=== PATIENT | male | born 1970 | race Caucasian/White ===

== ENCOUNTER 2017-03-03 21:47 | Inpatient (IN) | payer OTHER ==
[~2017-03-03] VITALS: Ht 172.7 cm; Wt 93.1 kg
[~2017-03-03 21:47] MED LIST: ACET-168 PO; CLAR500T2 PO; DIPH25CA79 PO; HYDR1TAB PO; MULT-851 PO; MULTIVITAMIN; NAPR220T76; OMEP20TA7 PO; PRM25T PO; RT-ALBUINH IH; VITAMIN C; [UNRECOGNIZED DRUG - CODE] PO
--- OUTSIDE RECORDS SUMMARY | 2017-03-03 21:53 | XMS REPORT | Continuity of Care Document ---
Demographics Preferred Language Unknown Marital Status Unknown Catholic Affiliation Unknown Race Unknown Ethnic Group Unknown Author Author [facility] Address Unknown Phone Unavailable Allergies Active Description Code Type Severity Reaction Onset Reported/Identified Relationship to Patient Clinical Status Yes No Known Drug Allergies [id number] Drug Allergy Mild N/A 07/27/2008 Yes ciprofloxacin [id number] Drug Allergy Mild N/A 08/05/2008 Yes levofloxacin [id number] Drug Allergy Mild N/A 08/05/2008 Medications There is no data. Problems Date Dx Coded Attending Type Code Diagnosis Diagnosed By 05/18/2010 724.2 BACK PAIN, LOWER 01/26/2015 RAISA BRAVO MD Ot F17.210 01/26/2015 RAISA BRAVO MD, Ot J18.9 01/26/2015 RAISA BRAVO MD Ot R09.02 01/26/2015 RAISA BRAVO MD Ot F17.210 01/26/2015 RAISA BRAVO MD Ot J18.9 01/26/2015 RAISA BRAVO MD Ot R09.02 01/26/2015 RAISA BRAVO MD Ot Z23 Procedures There is no data. Results There is no data. Encounters ACCT No. Visit Date/Time Discharge Status Pt. Type Provider Facility Loc./Unit Complaint [id number] 08/14/2011 13:25:00 Document Registration [id number] 01/25/2015 08:30:00 01/26/2015 15:51:00 DIS Inpatient RAISA BRAVO MD Via [facility] 4TH [id number] 03/03/2017 21:48:00 ACT Emergency TERRA TREVINO, TRAM Mcfarland Via [facility] ER SOJessi
--- NOTE | 2017-03-03 22:07 | ED EENT ---
History of Present Illness General Stated Complaint: SOA Source: patient Exam Limitations: no limitations History of Present Illness Time seen by provider: 22:05 Initial Comments To ER per EMS from home with reports of shortness of breath. Patient has been ill with upper or symptoms for the past several days including fever and productive cough. Over the past 2 days the cough has gotten worse and he's become short of breath. This evening he summoned 911 was found to be a 4% on room air but told the paramedics he believes he was going to quit breathing for the Hospital and was very anxious. Paramedics gave DuoNeb which patient tolerated poorly and then they placed him on Cipro which patient states improved his symptoms significantly. He is noted to be febrile at 101.5 and states that he gets pneumonia about once a year most recently 1 year ago. He does smoke. Has no other medical conditions that he is aware of though he does not have a physician who he visits on a regular basis. Timing/Duration: other Severity: moderate Associated Symptoms: cough Allergies and Home Medications Allergies Coded Allergies: ciprofloxacin (Unverified Allergy, Mild, 08/05/08) levofloxacin (Unverified Allergy, Mild, 08/05/08) Home Medications Acetaminophen 500 Mg Tablet, 1,000 MG PO DAILY, (Reported) Albuterol Sulfate 8.5 Gm Hfa.aer.ad, 1-2 PUFF IH Q4H PRN for SHORTNESS OF BREATH , (Reported) Brompheniram/Phenylephrine/Dm 118 Ml Solution, 45 ML PO HS PRN for COUGH OR CONGESTION, (Reported) Clarithromycin 500 Mg Tablet, 500 MG PO BID, (Reported) FILLED 01/22/15 #28 FOR 14 DAY THERAPY Diphenhydramine HCl 25 Mg Capsule, 50 MG PO HS PRN for ALLERGIES, (Reported) TAKES 2 (25 MG) CAPS Multivits-Minerals/FA/Lycopene 1 Each Tablet, 1 TAB PO DAILY, (Reported) Omeprazole 20 Mg Tablet.dr, 20 MG PO DAILY, (Reported) Review of Systems Constitutional: see HPI Eyes: No Symptoms Reported Ears: No Symptoms Reported Nose: no symptoms reported Mouth: no symptoms reported Throat: see HPI Respiratory: no symptoms reported Cardiovascular: no symptoms reported Musculoskeletal: no symptoms reported Past Uybvizd-Djwazv-Hdspqq Hx Seasonal Allergies Seasonal Allergies: Yes Surgeries Surgeries: Appendectomy Reproductive System Hx Reproductive Disorders: No Genitourinary Genitourinary Disorders: Kidney Stones Musculoskeletal Musculoskeletal Disorders: Chronic Back Pain Family Medical History Significant Family History: No Pertinent Family Hx Family Medial History: Thyroid disease 19 MOTHER (HYPOTHYROID) Physical Exam Vital Signs Vital Sign - Last 12Hours 03/03/17 21:47 Temp 101.5 Pulse 109 Resp 20 B/P (MAP) 98/45 (62) Pulse Ox 96 O2 Delivery Nasal Cannula O2 Flow Rate 4.00 General Appearance: WD/WN, no apparent distress Eyes: bilateral eye normal inspection, bilateral eye PERRL, bilateral eye EOMI Ears: bilateral ear auricle normal, bilateral ear canal normal, bilateral ear TM normal Mouth/Throat: normal mouth inspection, pharynx normal, other (the soft palate and tonsillar pillars are erythematous with whitish exudate on them.) Neck: non-tender, full range of motion Cardiovascular: no murmur, tachycardia Respiratory: no respiratory distress, no accessory muscle use Gastrointestinal: normal bowel sounds, non tender, soft Neurologic/Psychiatric: alert, normal mood/affect, oriented x 3 Skin: normal color, warm/dry Progress/Results/Core Measures Results/Orders Lab Results Laboratory Tests Test 03/03/17 22:00 03/03/17 22:25 Range/Units White Blood Count 11.7 H 4.3-11.0 10^3/uL Red Blood Count 4.21 L 4.35-5.85 10^6/uL Hemoglobin 14.0 13.3-17.7 G/DL Hematocrit 40 40-54 % Mean Corpuscular Volume 94 80-99 FL Mean Corpuscular Hemoglobin 33 25-34 PG Mean Corpuscular Hemoglobin Concent 35 32-36 G/DL Red Cell Distribution Width 13.1 10.0-14.5 % Platelet Count 270 130-400 10^3/uL Mean Platelet Volume 9.7 7.4-10.4 FL Neutrophils (%) (Auto) 90 H 42-75 % Lymphocytes (%) (Auto) 4 L 12-44 % Monocytes (%) (Auto) 5 0-12 % Eosinophils (%) (Auto) 0 0-10 % Basophils (%) (Auto) 0 0-10 % Neutrophils # (Auto) 10.5 H 1.8-7.8 X 10^3 Lymphocytes # (Auto) 0.5 L 1.0-4.0 X 10^3 Monocytes # (Auto) 0.6 0.0-1.0 X 10^3 Eosinophils # (Auto) 0.0 0.0-0.3 10^3/uL Basophils # (Auto) 0.0 0.0-0.1 10^3/uL Neutrophils % (Manual) 81 % Lymphocytes % (Manual) 8 % Monocytes % (Manual) 5 % Eosinophils % (Manual) 0 % Basophils % (Manual) 0 % Band Neutrophils 6 % Blood Morphology Comment NORMAL Sodium Level 133 L 135-145 MMOL/L Potassium Level 3.7 3.6-5.0 MMOL/L Chloride Level 98 98-107 MMOL/L Carbon Dioxide Level 21 21-32 MMOL/L Anion Gap 14 5-14 MMOL/L Blood Urea Nitrogen 18 7-18 MG/DL Creatinine 1.37 H 0.60-1.30 MG/DL Estimat Glomerular Filtration Rate 56 BUN/Creatinine Ratio 13 Glucose Level 115 H 70-105 MG/DL Lactic Acid Level 3.77 *H 0.50-2.00 MMOL/L Calcium Level 9.2 8.5-10.1 MG/DL Total Bilirubin 0.3 0.1-1.0 MG/DL Aspartate Amino Transf (AST/SGOT) 22 5-34 U/L Alanine Aminotransferase (ALT/SGPT) 24 0-55 U/L Alkaline Phosphatase 91 40-136 U/L B-Type Natriuretic Peptide 60.9 <100.0 PG/ML Total Protein 7.3 6.4-8.2 GM/DL Albumin 4.0 3.2-4.5 GM/DL Blood Gas Puncture Site LEFT RADIAL Blood Gas Patient Temperature 99.6 Arterial Blood pH 7.39 7.37-7.43 Arterial Blood Partial Pressure CO2 38 35-45 MMHG Arterial Blood Partial Pressure O2 84 79-93 MMHG Arterial Blood HCO3 22 L 23-27 MMOL/L Arterial Blood Total CO2 23.5 21.0-31.0 MMOL/L Arterial Blood Oxygen Saturation 97 94-100 % Arterial Blood Base Excess -1.7 -2.5-2.5 MMOL/L Goldy Test YES-POS Blood Gas Ventilator Setting NO Blood Gas Inspired Oxygen 4L Micro Results Microbiology 03/03/17 Influenza Types A,B Antigen (SOOL) - Final, Complete My Orders Orders - WILLIAM LAU COW BUYER Cbc With Automated Diff (03/03/17 21:59) Comprehensive Metabolic Panel (03/03/17 21:59) Ua Culture If Indicated (03/03/17 21:59) Saline Lock/Iv-Start (03/03/17 21:59) BNP (03/03/17 21:59) Chest 1 View, Ap/Pa Only (03/03/17 21:59) Blood Culture (03/03/17 21:59) Lactic Acid Analyzer (03/03/17 21:59) Throat Culture (03/03/17 21:59) Influenza A And B Antigens (03/03/17 21:59) Sputum Culture (03/03/17 21:59) Ns Iv 1000 Ml (Sodium Chloride 0.9%) (03/03/17 22:15) Ibuprofen Tablet (Motrin Tablet) (03/03/17 22:15) Manual Differential (03/03/17 22:00) Arterial Blood Gas (03/03/17 22:26) Rapid Strep A Screen (03/03/17 22:38) Ns Iv 1000 Ml (Sodium Chloride 0.9%) (03/03/17 22:45) Remove Rings In Anticipation O (03/03/17 22:40) Protime With Inr (03/03/17 22:45) Medications Given in ED Current Medications Medications Dose Ordered Sig/Myke Route Start Time Stop Time Status Last Admin Dose Admin Ibuprofen 800 mg ONCE ONCE PO 03/03/17 22:15 03/03/17 22:16 DC 03/03/17 22:21 800 MG Vital Signs/I&O Vital Sign - Last 12Hours 03/03/17 03/03/17 21:47 22:28 Temp 101.5 Pulse 109 96 Resp 20 20 B/P (MAP) 98/45 (62) Pulse Ox 96 96 O2 Delivery Nasal Cannula O2 Flow Rate 4.00 Departure Communication (Admissions) Progress Notes 2246-patient has not been on any antibiotics within the last 3 months. His blood pressure at one point in the emergency room was as low as 72 systolic so he is receiving the 3 L fluid bolus. Currently blood pressure is 97/59, heart rate 104, temperature down to 99.7. Because he is a 1-1.5 pack per day smoker of cigarettes we will cover for pseudomonas using the sepsis protocol Zosyn and vancomycin Impression Impression: Primary Impression: Right lower lobe pneumonia Additional Impression: Sepsis Disposition: ADMITTED INPATIENT Condition: Stable Admissions Decision to Admit Reason: Admit from ER (General) Departure-Patient Inst. Referrals: NO,LOCAL PHYSICIAN (PCP/Family) Primary Care Physician WILLIAM LAU APRN Mar 03, 2017 22:07
[2017-03-03 22:10] LABS: BASOPHILS % (AUTO) 0 % (0-10); EOSINOPHILS % (AUTO) 0 % (0-10); HEMATOCRIT 40 % (40-54); LYMPHOCYTES # (AUTO) 0.5 X 10^3 (1.0-4.0); LYMPHOCYTES % (AUTO) 4 % (12-44); MEAN CORPUSCULAR HEMOGLOBIN 33 PG (25-34); MEAN CORPUSCULAR HGB CONC 35 G/DL (32-36); MEAN CORPUSCULAR VOLUME 94 FL (80-99); MEAN PLATELET VOLUME 9.7 FL (7.4-10.4); MONOCYTES # (AUTO) 0.6 X 10^3 (0.0-1.0); MONOCYTES % (AUTO) 5 % (0-12); NEUTROPHILS # (AUTO) 10.5 X 10^3 (1.8-7.8); NEUTROPHILS % (AUTO) 90 % (42-75); PLATELET COUNT 270 10^3/uL (130-400); RED BLOOD COUNT 4.21 10^6/uL (4.35-5.85); RED CELL DISTRIBUTION WIDTH 13.1 % (10.0-14.5); WHITE BLOOD COUNT 11.7 10^3/uL (4.3-11.0)
[2017-03-03] MEDS ORDERED: IBUPROFEN 800 MG (MOTRIN) TAB PO ONE (22:15)
[2017-03-03] MEDS: NS IV 1000 ML 1,000 ML IV SCH ×2 (22:21→23:21)
[2017-03-03 22:28] VITALS: BP 94/49
[2017-03-03 22:28] LABS: BAND NEUTROPHILS 6 %; BASOPHILS % (MANUAL) 0 %; EOSINOPHILS % (MANUAL) 0 %; LYMPHOCYTES % (MANUAL) 8 %; MONOCYTES % (MANUAL) 5 %; NEUTROPHILS % (MANUAL) 81 %; RBC MORPH NORMAL
[2017-03-03 22:33] LABS: ABG BASE EXCESS -1.7 MMOL/L (-2.5-2.5); ABG OXYGEN SATURATION 97 % (94-100); ABG PCO2 38 MMHG (35-45); ABG PH 7.39 (7.37-7.43); ABG PO2 84 MMHG (79-93); ABG TCO2 23.5 MMOL/L (21.0-31.0)
[2017-03-03 22:35] LABS: BILIRUBIN,TOTAL 0.3 MG/DL (0.1-1.0); CALCIUM 9.2 MG/DL (8.5-10.1); CREATININE SERUM 1.37 MG/DL (0.60-1.30); POTASSIUM 3.7 MMOL/L (3.6-5.0); TOTAL PROTEIN 7.3 GM/DL (6.4-8.2)
[2017-03-03 22:37] LABS: ALLENS TEST YES-POS; INSPIRED O2 4L; PATIENT TEMP 99.6; VENTILATOR NO
[2017-03-03] MEDS ORDERED: NS IV PRN (22:45)
[2017-03-03 23:00] LABS: INR 1.1 (0.8-1.4); PROTHROMBIN TIME PATIENT 14.3 SEC (12.2-14.7)
--- OUTSIDE RECORDS SUMMARY | 2017-03-03 23:02 | XMS REPORT | Continuity of Care Document ---
Demographics Preferred Language Unknown Marital Status Unknown Nondenominational Affiliation Unknown Race Unknown Ethnic Group Unknown Author Author [facility] Address Unknown Phone Unavailable Allergies Active Description Code Type Severity Reaction Onset Reported/Identified Relationship to Patient Clinical Status Yes No Known Drug Allergies [id number] Drug Allergy Mild N/A 07/27/2008 Yes ciprofloxacin [id number] Drug Allergy Mild N/A 08/05/2008 Yes levofloxacin [id number] Drug Allergy Mild N/A 08/05/2008 Medications There is no data. Problems Date Dx Coded Attending Type Code Diagnosis Diagnosed By 05/18/2010 724.2 BACK PAIN, LOWER 01/26/2015 RAISA BRAVO MD, Ot F17.210 01/26/2015 RAISA BRAVO MD, Ot J18.9 01/26/2015 RAISA BRAVO MD, Ot R09.02 01/26/2015 RAISA BRAVO MD, Ot F17.210 NICOTINE DEPENDENCE, CIGARETTES, UNCOMPL 01/26/2015 RAISA BRAVO MD, Ot J18.9 PNEUMONIA, UNSPECIFIED ORGANISM 01/26/2015 RAISA BRAVO MD, Ot R09.02 HYPOXEMIA 01/26/2015 RAISA BRAVO MD, Ot Z23 ENCOUNTER FOR IMMUNIZATION Procedures There is no data. Results Test Result Range Complete blood count (CBC) with automated white blood cell (WBC) differential - 03/03/17 22:00 Blood leukocytes automated count (number/volume) 11.7 10*3/uL 4.3-11.0 Blood erythrocytes automated count (number/volume) 4.21 10*6/uL 4.35-5.85 Venous blood hemoglobin measurement (mass/volume) 14.0 g/dL 13.3-17.7 Blood hematocrit (volume fraction) 40 % 40-54 Automated erythrocyte mean corpuscular volume 94 [foz_us] 80-99 Automated erythrocyte mean corpuscular hemoglobin (mass per erythrocyte) 33 pg 25-34 Automated erythrocyte mean corpuscular hemoglobin concentration measurement ( mass/volume) 35 g/dL 32-36 Automated erythrocyte distribution width ratio 13.1 % 10.0-14.5 Automated blood platelet count (count/volume) 270 10*3/uL 130-400 Automated blood platelet mean volume measurement 9.7 [foz_us] 7.4-10.4 Automated blood neutrophils/100 leukocytes 90 % 42-75 Automated blood lymphocytes/100 leukocytes 4 % 12-44 Blood monocytes/100 leukocytes 5 % 0-12 Automated blood eosinophils/100 leukocytes 0 % 0-10 Automated blood basophils/100 leukocytes 0 % 0-10 Blood neutrophils automated count (number/volume) 10.5 10*3 1.8-7.8 Blood lymphocytes automated count (number/volume) 0.5 10*3 1.0-4.0 Blood monocytes automated count (number/volume) 0.6 10*3 0.0-1.0 Automated eosinophil count 0.0 10*3/uL 0.0-0.3 Automated blood basophil count (count/volume) 0.0 10*3/uL 0.0-0.1 Blood manual differential performed detection - 03/03/17 22:00 Blood monocytes/100 leukocytes 5 % NRG Manual blood segmented neutrophils/100 leukocytes 81 % NRG Blood band neutrophils/100 leukocytes 6 % NRG Manual blood lymphocytes/100 leukocytes 8 % NRG Manual eosinophils/100 leukocytes in nose 0 % NRG Manual blood basophils/100 leukocytes 0 % NRG Blood erythrocyte morphology finding identification NORMAL NRG Influenza virus A and B antigen detection - 03/03/17 22:00 FLU RESULT NEGATIVE FOR INFLUENZA A AND B ANTIGENS BY [facility] Blood lactic acid measurement (moles/volume) - 03/03/17 22:00 Blood lactic acid measurement (moles/volume) 3.77 mmol/L 0.50-2.00 Comprehensive metabolic panel - 03/03/17 22:00 Serum or plasma sodium measurement (moles/volume) 133 mmol/L 135-145 Serum or plasma potassium measurement (moles/volume) 3.7 mmol/L 3.6-5.0 Serum or plasma chloride measurement (moles/volume) 98 mmol/L 98-107 Carbon dioxide 21 mmol/L 21-32 Serum or plasma anion gap determination (moles/volume) 14 mmol/L 5-14 Serum or plasma urea nitrogen measurement (mass/volume) 18 mg/dL 7-18 Serum or plasma creatinine measurement (mass/volume) 1.37 mg/dL 0.60-1.30 Serum or plasma urea nitrogen/creatinine mass ratio 13 NRG Serum or plasma creatinine measurement with calculation of estimated glomerular filtration rate 56 NRG Serum or plasma glucose measurement (mass/volume) 115 mg/dL 70-105 Serum or plasma calcium measurement (mass/volume) 9.2 mg/dL 8.5-10.1 Serum or plasma total bilirubin measurement (mass/volume) 0.3 mg/dL 0.1-1.0 Serum or plasma alkaline phosphatase measurement (enzymatic activity/volume) 91 U/L 40-136 Serum or plasma aspartate aminotransferase measurement (enzymatic activity/ volume) 22 U/L 5-34 Serum or plasma alanine aminotransferase measurement (enzymatic activity/volume ) 24 U/L 0-55 Serum or plasma protein measurement (mass/volume) 7.3 g/dL 6.4-8.2 Serum or plasma albumin measurement (mass/volume) 4.0 g/dL 3.2-4.5 Serum or plasma lithium measurement (moles/volume) - 03/03/17 22:00 BNP level 60.9 pg/mL <100.0 Arterial blood gas measurement - 03/03/17 22:25 Blood pCO2 38 mm[Hg] 35-45 Blood pO2 84 mm[Hg] 79-93 Arterial blood bicarbonate measurement (moles/volume) 22 mmol/L 23-27 Arterial blood base excess by calculation -1.7 mmol/L - 2.5-2.5 Arterial blood oxygen saturation measurement 97 % 94-100 * Inhaled oxygen flow rate 4L NRG Arterial blood pH measurement with patient temperature correction 7.39 7.37-7.43 Arterial blood carbon dioxide, total measurement (moles/volume) 23.5 mmol/L 21.0-31.0 Body site LEFT RADIAL NRG Assessment of wrist artery patency prior to arterial puncture YES- POS NRG Setting of ventilation mode NO NRG Measurement of body temperature 99.6 NRG Encounters ACCT No. Visit Date/Time Discharge Status Pt. Type Provider Facility Loc./Unit Complaint [id number] 08/14/2011 13:25:00 Document Registration [id number] 01/25/2015 08:30:00 01/26/2015 15:51:00 DIS Inpatient SHELLY TREVINO, RAISA Raines Via [facility] 4TH PNEUMONIA,BRONCHOSPASM, HIVES [id number] 03/03/2017 22:40:00 ACT Inpatient PJ TREVINO, LUDY Poe Via [facility] ICU RLL PNEUMONIA, SEPSIS
[2017-03-03] MEDS ORDERED: PIPERACILLIN SODIUM/TAZOBACTAM 4.5 GM in NS (IVPB) 100 ML IV ONE (23:45)
[2017-03-03 23:49] VITALS: BP 124/67
[2017-03-04] VITALS (42 sets, daily range): BP systolic 82–137; BP diastolic 50–77
[2017-03-04] MEDS ORDERED: NS IV PRN (00:30)
[2017-03-04] MEDS ORDERED: VANCOMYCIN INJECTION 1,000 MG in NS (IVPB) 250 ML IV SCH (00:30)
[2017-03-04] MEDS: NS IV 1000 ML 1,000 ML IV SCH ×8 (00:39→21:17)
[2017-03-04] MEDS ORDERED: LORazepam INJ 2 MG/ML (ATIVAN) VIAL ONE (00:45)
[2017-03-04] MEDS: LORazepam INJ 2 MG/ML (ATIVAN) VIAL IV PRN ×2 (02:39→03:29)
[2017-03-04 03:39] LABS: ABG BASE EXCESS -4.4 MMOL/L (-2.5-2.5); ABG OXYGEN SATURATION 98 % (94-100); ABG PCO2 59 MMHG (35-45); ABG PO2 118 MMHG (79-93); ABG TCO2 24.3 MMOL/L (21.0-31.0)
[2017-03-04 03:41] LABS: ABG PH 7.21 (7.37-7.43); ALLENS TEST YES-POS; INSPIRED O2 60%; PATIENT TEMP 98.1; VENTILATOR NO
[2017-03-04] MEDS ORDERED: NS (IVPB) 50 ML ONE (04:12)
[2017-03-04] MEDS: DEXMEDETOMIDINE INJECTION 400 MCG in NS (IVPB) 100 ML IV SCH ×4 (04:20→20:51)
[2017-03-04] MEDS ORDERED: methylPREDNISolone 125 MG (Solu-MEDROL) VIAL IVP ONE (04:45)
[2017-03-04] MEDS: FAMOTIDINE 20MG/2ML IV (PEPCID) IVP SCH ×3 (05:00→20:55)
[2017-03-04 05:02] LABS: BASOPHILS % (AUTO) 0 % (0-10); EOSINOPHILS % (AUTO) 0 % (0-10); HEMATOCRIT 38 % (40-54); LYMPHOCYTES # (AUTO) 0.4 X 10^3 (1.0-4.0); LYMPHOCYTES % (AUTO) 5 % (12-44); MEAN CORPUSCULAR HEMOGLOBIN 33 PG (25-34); MEAN CORPUSCULAR HGB CONC 35 G/DL (32-36); MEAN CORPUSCULAR VOLUME 96 FL (80-99); MEAN PLATELET VOLUME 9.5 FL (7.4-10.4); MONOCYTES # (AUTO) 0.5 X 10^3 (0.0-1.0); MONOCYTES % (AUTO) 6 % (0-12); NEUTROPHILS # (AUTO) 7.5 X 10^3 (1.8-7.8); NEUTROPHILS % (AUTO) 90 % (42-75); PLATELET COUNT 227 10^3/uL (130-400); RED BLOOD COUNT 3.91 10^6/uL (4.35-5.85); RED CELL DISTRIBUTION WIDTH 13.2 % (10.0-14.5); WHITE BLOOD COUNT 8.4 10^3/uL (4.3-11.0)
[2017-03-04 05:22] LABS: ABG BASE EXCESS -2.2 MMOL/L (-2.5-2.5); ABG OXYGEN SATURATION 64 % (94-100); ABG PCO2 60 MMHG (35-45); ABG TCO2 26.4 MMOL/L (21.0-31.0)
[2017-03-04 05:25] LABS: ABG PH 7.23 (7.37-7.43); ABG PO2 39 MMHG (79-93); ALLENS TEST YES-POS; INSPIRED O2 45%; PATIENT TEMP 97.8; VENTILATOR NO
[2017-03-04 05:26] LABS: ALANINE AMINOTRANSFERASE 27 U/L (0-55); ALBUMIN 3.3 GM/DL (3.2-4.5); ALKALINE PHOSPHATASE 72 U/L (40-136); BILIRUBIN,TOTAL 0.3 MG/DL (0.1-1.0); BUN/CREATININE RATIO 17; CALCIUM 7.8 MG/DL (8.5-10.1); CARBON DIOXIDE 21 MMOL/L (21-32); CHLORIDE 106 MMOL/L (98-107); CREATININE SERUM 1.04 MG/DL (0.60-1.30); GFR ESTIMATED > 60; GLUCOSE 116 MG/DL (70-105); MAGNESIUM 1.5 MG/DL (1.8-2.4); POTASSIUM 4.8 MMOL/L (3.6-5.0); SODIUM 137 MMOL/L (135-145)
[2017-03-04 05:39] LABS: ABG BASE EXCESS -3.9 MMOL/L (-2.5-2.5); ABG OXYGEN SATURATION 99 % (94-100); ABG PCO2 59 MMHG (35-45); ABG PO2 153 MMHG (79-93); ABG TCO2 24.6 MMOL/L (21.0-31.0)
[2017-03-04 05:40] LABS: ABG PH 7.21 (7.37-7.43)
[2017-03-04 05:41] LABS: ALLENS TEST YES-POS; INSPIRED O2 45%; PATIENT TEMP 98.8; VENTILATOR NO
--- NOTE | 2017-03-04 06:35 | Diagnostic Imaging Report ---
INDICATION: Dyspnea 2210 hrs. Portable upright AP view of the chest is obtained with comparison made to study of 01/23/2015. Heart size and pulmonary vascularity are within normal limits. There is mild atelectasis and/or pneumonitis in the lung bases. No consolidation is seen. There is no evidence of pneumothorax or significant pleural fluid. IMPRESSION: Mild basilar atelectasis and/or pneumonitis which could be further evaluated on short-term followup study. Dictated by: Dictated on workstation # [id number]
--- NOTE | 2017-03-04 06:42 | Diagnostic Imaging Report ---
INDICATION: Respiratory distress 0350 hours Comparison is made to study of 03/03/2017. Overall heart size and pulmonary vascularity are within normal limits. There has been an increase in interstitial markings throughout the lungs, greater on the right. No consolidation, pneumothorax or significant pleural fluid is identified. IMPRESSION: Increasing interstitial markings which is likely related to interstitial edema or pneumonitis. Clinical correlation and radiographic followup would be of use. Dictated by: Dictated on workstation # [id number]
[2017-03-04] MEDS: RT-ALBUTEROL/IPRATROPIUM 3 ML (DUONEB) VIAL INH SCH ×5 (06:48→21:57)
--- NOTE | 2017-03-04 06:49 | Pulmonary Consultation ---
History of Present Illness History of Present Illness Date of Consultation 03/04/17 06:40 Time Seen by Provider: 06:41 Date of Admission History of Present Illness 46yo with hx of tobacco use presented to ED via EMS secondary to worsening SOB over the last several days and fever with productive cough. Upon EMS arrival pt was in respiratory distress. He was treated with SVNs and did improve slightly. TM 101.5. Since ICU admission pt has been requiring BiPAP therapy and ABG still shows respiratory acidosis. Pt has accessory muscle use and worsening SOB despite BiPAP therapy. Unable to obtain ROS from pt secondary to bipap and respiratory distress. Allergies and Home Medications Allergies Coded Allergies: ciprofloxacin (Unverified Allergy, Mild, 08/05/08) levofloxacin (Unverified Allergy, Mild, 08/05/08) Home Medications Acetaminophen 500 Mg Tablet, 1,000 MG PO DAILY, (Reported) Albuterol Sulfate 8.5 Gm Hfa.aer.ad, 1-2 PUFF IH Q4H PRN for SHORTNESS OF BREATH , (Reported) Brompheniram/Phenylephrine/Dm 118 Ml Solution, 45 ML PO HS PRN for COUGH OR CONGESTION, (Reported) Clarithromycin 500 Mg Tablet, 500 MG PO BID, (Reported) FILLED 01/22/15 #28 FOR 14 DAY THERAPY Diphenhydramine HCl 25 Mg Capsule, 50 MG PO HS PRN for ALLERGIES, (Reported) TAKES 2 (25 MG) CAPS Multivits-Minerals/FA/Lycopene 1 Each Tablet, 1 TAB PO DAILY, (Reported) Omeprazole 20 Mg Tablet.dr, 20 MG PO DAILY, (Reported) Past Inhighb-Xxyntr-Ruvtgm Hx Patient Social History Alcohol Use: Denies Use Recreational Drug Use: No Smoking Status: Current Everyday Smoker Type Used: Cigarettes 2nd Hand Smoke Exposure: Yes Recent Foreign Travel: No Contact w/Someone Who Travel: No Recent Infectious Disease Expo: No Recent Hopitalizations: No Immunizations Up To Date PED Vaccines UTD: No Date of Pneumonia Vaccine: Mar 04, 2015 Seasonal Allergies Seasonal Allergies: Yes Surgeries History of Surgeries: Yes (LITHOTRIPSY) Surgeries: Appendectomy Respiratory History of Respiratory Disorde: Yes (Resp infection twice yearly, tobaccoism) Respiratory Disorders: Chronic Bronchitis Cardiovascular History of Cardiac Disorders: No Neurological History of Neurological Disord: No Reproductive System Hx Reproductive Disorders: No Genitourinary History of Genitourinary Disor: Yes Genitourinary Disorders: Kidney Stones Gastrointestinal History of Gastrointestinal Di: Yes Gastrointestinal Disorders: Gastroesophageal Reflux Musculoskeletal History of Musculoskeletal Dis: Yes (HERNIATED DISK) Musculoskeletal Disorders: Chronic Back Pain Endocrine History of Endocrine Disorders: No HEENT History of HEENT Disorders: No Cancer History of Cancer: No Psychosocial History of Psychiatric Problem: Yes Behavioral Health Disorders: Sleep Difficulties, Anxiety Integumentary History of Skin or Integumenta: Yes (INTERMITTENT RASH (POST CIPRO REACTION)) Blood Transfusions History of Blood Disorders: No Family Medical History Significant Family History: No Pertinent Family Hx Family Medial History: Thyroid disease 19 MOTHER (HYPOTHYROID) Review of Systems Time Seen by Provider: 06:49 Exam Exam Vital Signs Date Time Temp Pulse Resp B/P (MAP) Pulse Ox O2 Delivery O2 Flow Rate FiO2 03/04/17 06:00 98 36 83/58 (66) 100 NIV Bilevel 45.00 03/04/17 05:00 94 32 95/62 (73) 97 NIV Bilevel 45.00 03/04/17 04:00 111 36 82/53 (63) 97 NIV Bilevel 45.00 03/04/17 03:35 96 36 96 45.00 03/04/17 03:35 122 42 119/77 (91) 93 NIV Bilevel 45.00 03/04/17 03:25 124 14 122/50 (74) 92 Vapotherm 60.00 24.00 03/04/17 03:00 99 32 113/54 (73) 95 Vapotherm 40.00 24.00 03/04/17 02:00 96 27 108/60 (76) 96 Vapotherm 40.00 24.00 03/04/17 01:30 98 29 137/73 (94) 96 Vapotherm 40.00 24.00 03/04/17 01:00 98 18 89/52 (64) 95 Vapotherm 40.00 24.00 03/04/17 01:00 98 03/04/17 00:45 102 21 98/58 (71) 99 Vapotherm 40.00 24.00 03/04/17 00:30 101 10 103/61 (75) 97 Vapotherm 40.00 24.00 03/04/17 00:30 98 Vapotherm 24.00 40 03/04/17 00:20 109 98 40 03/04/17 00:15 105 23 117/64 (81) 96 Vapotherm 40.00 24.00 03/04/17 00:00 109 9 122/69 (86) 97 Vapotherm 40.00 24.00 03/03/17 23:51 110 03/03/17 23:49 98.0 110 20 124/67 (86) 93 Nasal Cannula 03/03/17 23:30 99.9 91 20 98 Nasal Cannula 4.00 03/03/17 22:28 96 20 96 03/03/17 21:47 101.5 109 20 98/45 (62) 96 Nasal Cannula 4.00 I & O 03/04/17 07:00 Intake Total 3153.88 ml Output Total 150 ml Balance 3003.88 ml General Appearance: Severe Distress HEENT: PERRL/EOMI, Normal ENT Inspection Neck: Full Range of Motion, Normal Inspection, Non Tender, Supple Respiratory: Accessory Muscle Use, Decreased Breath Sounds, Respiratory Distress, Wheezing Cardiovascular: Regular Rate, Rhythm, No Edema Capillary Refill: Less Than 3 Seconds Gastrointestinal: normal bowel sounds, non tender, soft Extremity: Normal Capillary Refill, Normal Inspection, Normal Range of Motion Neurologic/Psychiatric: Disoriented x3 Skin: Normal Color, Warm/Dry Results Lab Laboratory Tests 03/03/17 22:00 03/04/17 04:55 Assessment/Plan Assessment/Plan Pneumonia with sepsis -Continue Emily doe -Carson culture pending -IVF Acute respiratory failure - failing BiPAP therapy -Pt is requiring high amounts of oxygen and he desaturates quickly if BiPAP comes off -Will have anesthesia intubate -Solumedrol 40 IV Q 6 -SVNs Tobacco use -education Obesity 255 TEJA ADAMS DO Mar 04, 2017 06:48
[2017-03-04] MEDS ORDERED: INFLUENZA TRIvalent 2017-2018 0.5 ML/45 MCG SYR IM ONE (07:00)
[2017-03-04] MEDS ORDERED: NS IV 1000 ML 1,000 ML IV SCH (07:00)
[2017-03-04] MEDS ORDERED: PROPOFOL DRIP (ICU) 100 ML IV ONE (07:16)
[2017-03-04] MEDS: KCL 20 MEQ TAB (K-DUR) PO SCH (07:58)
[2017-03-04] MEDS: POTASSIUM CL 10MEQ/50ML IVPB 50 ML IV SCH (07:59)
[2017-03-04] MEDS: MAGNESIUM 1 GM/100 ML IVPB 100 ML IV SCH ×3 (07:59→14:47)
[2017-03-04] MEDS: PIPERACILLIN SODIUM/TAZOBACTAM 4.5 GM in NS (IVPB) 100 ML IV SCH ×2 (08:41→16:44)
[2017-03-04] MEDS: PROPOFOL DRIP (ICU) 100 ML IV SCH ×3 (08:43→21:11)
[2017-03-04] MEDS: methylPREDNISolone 40 MG/ML (Solu-MEDROL) VIAL IV SCH ×3 (08:44→21:18)
[2017-03-04] MEDS: VANCOMYCIN 1500 MG/NS 500 ML IVPB IV SCH ×4 (08:49→20:56)
--- NOTE | 2017-03-04 09:21 | Pulmonary Progress Note ---
Standard Progress Note Progress Notes Time Seen by Provider: 08:00 Called to bedside to discuss medical condition with . Assessment & Plan Pneumonia with sepsis -Continue Emily doe -Carson culture pending -IVF Acute respiratory failure - failing BiPAP therapy -Pt is requiring high amounts of oxygen and he desaturates quickly if BiPAP comes off -Will have anesthesia intubate -Solumedrol 40 IV Q 6 -SVNs Tobacco use -education Obesity I explained to pt is in critical condition and is currently requiring ventilator secondary to acute respiratory failure and failed BiPAP therapy. Currently pt is a full code. I anticipate pt will require vent for at least 24- 48 hours. All questions answered. 30min ICU spent with family, patient and medical staff after initial consult. 255 TEJA ADAMS DO Mar 04, 2017 09:21
--- NOTE | 2017-03-04 09:39 | Progress Note-Standard ---
Standard Progress Note Progress Notes/Assess & Plan Time Seen by Provider: 07:00 Final Diagnosis Consulted for emergent intubation per Dr. Blackwell. History obtained from Dr. Blackwell and supplies gathered. 8.0 ETT placed x1 attempt lucian well. VSS, bilateral chest rise, + ETCO2, throat clear. 20 gauge a-line placed to left radial. Report to RN/RT and Dr. Blackwell care assumed. DENISE MORRIS CRNA Mar 04, 2017 09:39
[2017-03-04] MEDS ORDERED: methylPREDNISolone 40 MG/ML (Solu-MEDROL) VIAL IV SCH (10:00)
[2017-03-04] MEDS ORDERED: SUCCINYLCHOLINE INJ 100 MG/5 ML SYR INJ ONE (10:04)
[2017-03-04] MEDS ORDERED: MIDAZOLAM 5 MG/5 ML (VERSED) VIAL IJ ONE (10:04)
[2017-03-04] MEDS ORDERED: ROCURONIUM 50 MG/5 ML (ZEMURON) VIAL IV ONE (10:04)
[2017-03-04] MEDS ORDERED: ETOMIDATE IV SOLN 20 MG/10 ML VIAL IV ONE (10:04)
--- NOTE | 2017-03-04 10:19 | Pulmonary Procedures ---
Pulmonary Procedures Date of Procedure Date of Service: Mar 04, 2017 Lumen: triple (US guided ) Central Line Procedure: betadine prep, sterile drapes applied Position: internal jugular (R) Anesthesia: Lidocaine Volume Anesthetic (ccs): 5 Complications: none TEJA ADAMS DO Mar 04, 2017 10:18
[2017-03-04 10:33] LABS: ABG OXYGEN SATURATION 98 % (94-100); ABG PCO2 49 MMHG (35-45); ABG PO2 112 MMHG (79-93); ABG TCO2 21.6 MMOL/L (21.0-31.0)
[2017-03-04 10:35] LABS: ABG PH 7.24 (7.37-7.43); ALLENS TEST YES-POS; INSPIRED O2 40; VENTILATOR YES
[2017-03-04 10:36] LABS: PATIENT TEMP 99.1
--- NOTE | 2017-03-04 11:15 | Diagnostic Imaging Report ---
INDICATION: Central line placement. Exam compared to 03/04 FINDINGS: Right IJ catheter is at the upper SVC ET tube mid trachea. Enteric catheter extends into the distal stomach. There is no pneumothorax. IMPRESSION: Support apparatus position as described. No pneumothorax. Dictated by: Dictated on workstation # [id number]
--- NOTE | 2017-03-04 17:18 | History & Physical-Hospitalist ---
HPI History of Present Illness: HPI/Chief Complaint The patient is a 46-year-old white male who arrived at the emergency room late last evening by EMS. He apparently had been ill with upper respiratory symptoms for several days which included fever and cough. This has gotten progressively worse. On the date of admission he told the paramedics that he believes he was going to quit breathing he was noted to be febrile at 101.1 he stated that he seems to get pneumonia about once a year. He continues to smoke. His states that she is concerned on the basis of his snoring and irregular respiration during sleep that he has sleep apnea. Subsequently he continued to exhibits considerable difficulty in maintaining his SaO2 at a satisfactory level. He was assessed by Dr. Blackwell from pulmonary and was intubated and sedated and placed on the ventilator. Source: family, RN/MD Exam Limitations: no limitations Date Seen 03/04/17 Time Seen by Provider: 17:15 Attending Physician Jeffery Oliva MD PCP No,Local Physician Referring Physician Date of Admission Mar 03, 2017 at 22:40 Home Medications & Allergies Home Medications Reviewed patient Home Medication Reconciliation Form Allergies Allergies Coded Allergies ciprofloxacin (Unverified Allergy, Mild, 08/05/08) levofloxacin (Unverified Allergy, Mild, 08/05/08) Past Xecmpol-Mjzfly-Bneyiz Hx Patient Social History Alcohol Use: Denies Use Recreational Drug Use: No Smoking Status: Current Everyday Smoker Type Used: Cigarettes 2nd Hand Smoke Exposure: Yes Physical Abuse Screen: No Sexual Abuse: No Recent Foreign Travel: No Contact w/other who traveled: No Recent Hopitalizations: No Recent Infectious Disease Expo: No Immunizations Up To Date Pediatric: No Date of Pneumonia Vaccine: Mar 04, 2015 Seasonal Allergies Seasonal Allergies: Yes Surgeries Yes (LITHOTRIPSY) Appendectomy Respiratory Yes (Resp infection twice yearly, tobaccoism) Cardiovascular No Neurological No Reproductive System Hx Reproductive Disorders: No Genitourinary Yes Kidney Stones Gastrointestinal Yes Gastroesophageal Reflux Musculoskeletal Yes (HERNIATED DISK) Chronic Back Pain Endocrine History of Endocrine Disorders: No HEENT History of HEENT Disorders: No Cancer No Psychosocial History of Psychiatric Problem: Yes Behavioral Health Disorders: Sleep Difficulties, Anxiety Integumentary History of Skin or Integumenta: Yes (INTERMITTENT RASH (POST CIPRO REACTION)) Blood Transfusions History of Blood Disorders: No Family Medical History Significant Family History: No Pertinent Family Hx Family Hx: Dementia 19 MOTHER, Onset:60 years & older FH: depression 19 MOTHER, Onset:Unknown Thyroid disease 19 MOTHER (HYPOTHYROID) Review of Systems Constitutional: see HPI EENTM: other (snoring during sleep) Respiratory: see HPI Cardiovascular: no symptoms reported Gastrointestinal: no symptoms reported Genitourinary: no symptoms reported Musculoskeletal: no symptoms reported Skin: no symptoms reported Psychiatric/Neurological: No Symptoms Reported Physical Exam Physical Exam Vital Signs Vital Sign - Last 12Hours 03/03/17 03/04/17 21:47 00:20 Temp 101.5 Pulse 109 Resp 20 B/P (MAP) 98/45 (62) Pulse Ox 96 O2 Delivery Nasal Cannula O2 Flow Rate 4.00 FiO2 40 Capillary Refill : Less Than 3 Seconds General Appearance: Moderate Distress (patient status sedated and on ventilator ) Eyes: Bilateral Eye Normal Inspection HEENT: Other (obese and with short neck) Neck: Normal Inspection Respiratory: Decreased Breath Sounds Cardiovascular: Regular Rate, Rhythm, No Edema, No Gallop, No JVD, No Murmur, Normal Peripheral Pulses Gastrointestinal: Normal Bowel Sounds, No Organomegaly, No Pulsatile Mass, Non Tender, Soft Back: Normal Inspection, No CVA Tenderness, No Vertebral Tenderness Extremity: Normal Capillary Refill, Normal Inspection, Normal Range of Motion, Non Tender, No Calf Tenderness, No Pedal Edema Neurologic/Psychiatric: Other (sedated) Skin: Normal Color, Warm/Dry Lymphatic: No Adenopathy Results Results/Procedures Lab Laboratory Tests 03/06/17 01:40 03/07/17 04:00 Assessment/Plan Admission Diagnosis Dyspnea/hypoxia Subsequent respiratory failure and intubation Tobaccoism History and body habitus suggesting sleep apnea Bibasilar atelectasis/early pneumonitis Assessment and Plan Intubation and ventilator management for hypoxia and excessive work of ventilation. 2.empiric antibiotics Note initial blood gas at 20-25 on 03/03 showed a pH of 7.39 PCO2 of 38 and a PCO2 of 84. Subsequent repeat on 03/04 at 0330 showed a pH of 7.21 PCO2 of 59 and a PO2 of 118 consistent with impending respiratory failure on BiPAP Clinical Quality Measures DVT/VTE Risk/Contraindication: Risk Factor Score Per Nursin RFS Level Per Nursing on Admit: 3=High JEFFERY OLIVA MD Mar 04, 2017 17:18
[2017-03-04] MEDS ORDERED: inSUlin (REGULAR) HUMAN 1 UNIT/0.01 ML (CHARGE PER UNIT) SC SCH (21:00)
[2017-03-05] VITALS (34 sets, daily range): BP systolic 97–145; BP diastolic 51–71
[2017-03-05] MEDS: inSUlin (REGULAR) HUMAN 1 UNIT/0.01 ML (CHARGE PER UNIT) SC SCH ×4 (01:07→17:48)
[2017-03-05] MEDS: PIPERACILLIN SODIUM/TAZOBACTAM 4.5 GM in NS (IVPB) 100 ML IV SCH ×3 (01:07→17:14)
[2017-03-05] MEDS: NS IV 1000 ML 1,000 ML IV SCH ×5 (01:08→23:04)
[2017-03-05] MEDS: RT-ALBUTEROL/IPRATROPIUM 3 ML (DUONEB) VIAL INH SCH ×6 (01:49→21:47)
[2017-03-05] MEDS: PROPOFOL DRIP (ICU) 100 ML IV SCH ×3 (04:09→15:55)
[2017-03-05] MEDS: DEXMEDETOMIDINE INJECTION 400 MCG in NS (IVPB) 100 ML IV SCH ×3 (04:10→15:00)
[2017-03-05] MEDS: methylPREDNISolone 40 MG/ML (Solu-MEDROL) VIAL IV SCH ×4 (04:21→21:33)
[2017-03-05 04:53] LABS: BASOPHILS % (AUTO) 0 % (0-10); EOSINOPHILS % (AUTO) 0 % (0-10); HEMATOCRIT 33 % (40-54); LYMPHOCYTES # (AUTO) 0.8 X 10^3 (1.0-4.0); LYMPHOCYTES % (AUTO) 11 % (12-44); MEAN CORPUSCULAR HEMOGLOBIN 32 PG (25-34); MEAN CORPUSCULAR HGB CONC 33 G/DL (32-36); MEAN CORPUSCULAR VOLUME 97 FL (80-99); MEAN PLATELET VOLUME 9.7 FL (7.4-10.4); MONOCYTES # (AUTO) 0.3 X 10^3 (0.0-1.0); MONOCYTES % (AUTO) 4 % (0-12); NEUTROPHILS # (AUTO) 5.8 X 10^3 (1.8-7.8); NEUTROPHILS % (AUTO) 85 % (42-75); PLATELET COUNT 205 10^3/uL (130-400); RED BLOOD COUNT 3.39 10^6/uL (4.35-5.85); RED CELL DISTRIBUTION WIDTH 13.4 % (10.0-14.5); WHITE BLOOD COUNT 6.8 10^3/uL (4.3-11.0)
[2017-03-05 04:54] LABS: ABG OXYGEN SATURATION 98 % (94-100); ABG PCO2 36 MMHG (35-45); ABG PH 7.38 (7.37-7.43); ABG PO2 81 MMHG (79-93); ABG TCO2 22.6 MMOL/L (21.0-31.0)
[2017-03-05 04:56] LABS: ALLENS TEST ART LINE; INSPIRED O2 30%; PATIENT TEMP 96.8; VENTILATOR YES
[2017-03-05 05:13] LABS: ALANINE AMINOTRANSFERASE 45 U/L (0-55); ALBUMIN 2.9 GM/DL (3.2-4.5); ALKALINE PHOSPHATASE 68 U/L (40-136); BILIRUBIN,TOTAL 0.1 MG/DL (0.1-1.0); BUN/CREATININE RATIO 21; CALCIUM 7.8 MG/DL (8.5-10.1); CARBON DIOXIDE 21 MMOL/L (21-32); CHLORIDE 111 MMOL/L (98-107); CREATININE SERUM 0.81 MG/DL (0.60-1.30); GFR ESTIMATED > 60; GLUCOSE 159 MG/DL (70-105); MAGNESIUM 2.1 MG/DL (1.8-2.4); PHOSPHORUS 2.1 MG/DL (2.3-4.7); POTASSIUM 4.3 MMOL/L (3.6-5.0); SODIUM 140 MMOL/L (135-145); TOTAL PROTEIN 5.3 GM/DL (6.4-8.2)
[2017-03-05] MEDS: POTASSIUM CL 10MEQ/50ML IVPB 50 ML IV SCH (05:22)
[2017-03-05] MEDS: MAGNESIUM 1 GM/100 ML IVPB 100 ML IV SCH (05:22)
[2017-03-05] MEDS: KCL 20 MEQ TAB (K-DUR) PO SCH (05:23)
[2017-03-05] MEDS ORDERED: NS IV 1000 ML 1,000 ML IV SCH (07:52)
--- NOTE | 2017-03-05 07:54 | Pulmonary Progress Note ---
Subjective Time Seen by Provider: 08:03 Subjective/Events-last exam Pt is sedated on vent. Exam Exam Vital Signs Date Time Temp Pulse Resp B/P (MAP) Pulse Ox O2 Delivery O2 Flow Rate FiO2 03/05/17 06:16 71 20 94 30 03/05/17 06:00 74 21 112/58 (76) 94 Mechanical Ventilator 30.00 03/05/17 05:00 78 21 106/55 (72) 93 Mechanical Ventilator 30.00 03/05/17 04:12 96.8 03/05/17 04:09 98.4 87 20 114/53 92 Mechanical Ventilator 30.00 03/05/17 04:00 Mechanical Ventilator 30.00 94 03/05/17 04:00 84 23 97/51 (66) 93 Mechanical Ventilator 30.00 03/05/17 03:57 82 24 93 30 03/05/17 03:00 87 20 114/53 (73) 92 Mechanical Ventilator 30.00 03/05/17 02:00 87 24 100/52 (68) 92 Mechanical Ventilator 30.00 03/05/17 01:49 82 23 93 30 03/05/17 01:00 87 24 112/58 (76) 93 Mechanical Ventilator 30.00 03/05/17 01:00 87 03/05/17 00:52 98.4 03/05/17 00:00 92 24 110/59 (76) 92 Mechanical Ventilator 30.00 03/05/17 00:00 Mechanical Ventilator 30.00 93 03/04/17 23:52 93 24 92 30 03/04/17 23:00 98 26 111/58 (75) 92 Mechanical Ventilator 30.00 03/04/17 22:00 86 31 109/57 (74) 93 Mechanical Ventilator 30.00 03/04/17 21:57 86 25 93 30 03/04/17 21:11 98.4 94 27 102/57 92 Mechanical Ventilator 30.00 03/04/17 21:00 89 27 103/56 (72) 92 Mechanical Ventilator 30.00 03/04/17 20:06 94 27 92 30 03/04/17 20:00 Mechanical Ventilator 30.00 92 03/04/17 20:00 94 30 101/58 (72) 92 Mechanical Ventilator 30.00 03/04/17 19:31 98.4 99 24 105/59 (74) 92 Mechanical Ventilator 30.00 03/04/17 19:00 101 03/04/17 19:00 101 37 102/56 (71) 92 Mechanical Ventilator 30.00 03/04/17 18:34 87 25 93 30 03/04/17 18:00 87 28 107/54 (71) 93 NIV Bilevel 45.00 03/04/17 17:00 89 22 106/60 (75) 94 NIV Bilevel 45.00 03/04/17 16:42 89 24 94 30 03/04/17 16:00 Mechanical Ventilator 45.00 100 03/04/17 16:00 98.6 03/04/17 16:00 91 30 104/63 (77) 94 NIV Bilevel 45.00 03/04/17 15:00 91 26 103/63 (76) 93 NIV Bilevel 45.00 03/04/17 14:51 98.6 90 24 99/66 93 03/04/17 14:00 85 28 98/59 (72) 94 NIV Bilevel 45.00 03/04/17 13:57 85 27 94 30 03/04/17 13:00 82 03/04/17 13:00 81 31 86/73 (77) 94 NIV Bilevel 45.00 03/04/17 12:27 87 23 100 30 03/04/17 12:00 Mechanical Ventilator 45.00 100 03/04/17 12:00 98.9 03/04/17 12:00 86 22 100/58 (72) 98 NIV Bilevel 45.00 03/04/17 11:00 89 18 96/62 (73) 100 NIV Bilevel 45.00 03/04/17 10:25 78 23 99 35 03/04/17 10:00 80 35 86/52 (63) 98 NIV Bilevel 45.00 03/04/17 09:00 92 39 92/54 (67) 98 NIV Bilevel 45.00 03/04/17 08:43 99.1 96 14 103/60 97 Mechanical Ventilator 40.00 03/04/17 08:00 Mechanical Ventilator 45.00 100 03/04/17 08:00 105 18 84/58 (67) 97 NIV Bilevel 45.00 I & O 03/05/17 07:00 Intake Total 1719 ml Output Total 4875 ml Balance -3156 ml General Appearance: Severe Distress HEENT: PERRL/EOMI, Normal ENT Inspection Neck: Full Range of Motion, Normal Inspection, Non Tender, Supple Respiratory: Accessory Muscle Use, Decreased Breath Sounds, Respiratory Distress, Wheezing Cardiovascular: Regular Rate, Rhythm, No Edema Capillary Refill: Less Than 3 Seconds Gastrointestinal: normal bowel sounds, non tender, soft Extremity: Normal Capillary Refill, Normal Inspection, Normal Range of Motion Neurologic/Psychiatric: Disoriented x3 Skin: Normal Color, Warm/Dry Results Lab Laboratory Tests 03/03/17 22:00 03/04/17 04:55 03/05/17 04:30 Assessment/Plan Assessment/Plan Pneumonia with sepsis -Continue vanco, Zosyn -Carson culture pending -IVF Acute respiratory failure - failing BiPAP therapy -pt is sedated on vent -Will start weaning vent tomorrow morning -Solumedrol 40 IV Q 6 -SVNs Tobacco use -education Obesity 233 Clinical Quality Measures DVT/VTE Risk/Contraindication: Risk Factor Score Per Nursin RFS Level Per Nursing on Admit: 3=High TEJA ADAMS DO Mar 05, 2017 07:54
[2017-03-05] MEDS ORDERED: TROUGH ORDER-PHARMACY XX NR (08:00)
--- NOTE | 2017-03-05 08:48 | Diagnostic Imaging Report ---
EXAMINATION: Portable erect AP chest at 0449 hours. INDICATION: Respiratory distress. FINDINGS: The heart size is within normal limits and stable when compared to 03/04/2017. The perihilar markings are prominent bilaterally but unchanged when compared to the prior study. No new area of pneumonia has developed and there is no sign of a pleural effusion. The mediastinum is not widened. The osseous structures are intact. The supportive tubes and lines remain in good position. IMPRESSION: Stable chest. There has been no adverse change since the prior exam. Dictated by: Dictated on workstation # [id number]
[2017-03-05] MEDS: VANCOMYCIN INJECTION 1,750 MG in NS IV 500 ML 500 ML IV SCH ×2 (10:51→21:33)
[2017-03-05] MEDS: FAMOTIDINE 20MG/2ML IV (PEPCID) IVP SCH ×2 (10:51→21:43)
--- NOTE | 2017-03-05 11:18 | Progress Note-Hospitalist ---
Progress Note HPI/CC on Admission The patient is a 46-year-old white male who arrived at the emergency room late last evening by EMS. He apparently had been ill with upper respiratory symptoms for several days which included fever and cough. This has gotten progressively worse. On the date of admission he told the paramedics that he believes he was going to quit breathing he was noted to be febrile at 101.1 he stated that he seems to get pneumonia about once a year. He continues to smoke. His states that she is concerned on the basis of his snoring and irregular respiration during sleep that he has sleep apnea. Subsequently he continued to exhibits considerable difficulty in maintaining his SaO2 at a satisfactory level. He was assessed by Dr. Blackwell from pulmonary and was intubated and sedated and placed on the ventilator. Progress Notes/Assess & Plan Date Seen 03/05/17 Time Seen by Provider: 10:45 Diagonsis/Assessment & Plan Reviewed ER admission chart Patient intubated and likely will be extubated tomorrow Reviewed medications and labs Patient appears to be comfortable on ventilator No fever, vital signs stable, sedated, intubated Regular rate and rhythm, clear to auscultation bilaterally but diminished in the bases No edema Laboratory Tests 03/05/17 04:30 Assessment: Pneumonia with ventilator dependent respiratory failure Sepsis Anemia History of GERD Plan: Maintain antibiotics Maintain ventilator I appreciate Dr. Blackwell's expertise Monitor closely YANG HERNANDEZ DO Mar 05, 2017 11:18
[2017-03-05] MEDS ORDERED: FAMO-119 PO (13:11)
[2017-03-05] MEDS ORDERED: ACET-2267 PO (13:11)
[2017-03-05] MEDS ORDERED: ALBU2.5V4 NEB (13:12)
[2017-03-05] MEDS ORDERED: fentaNYL INJECTION 100 MCG/2 ML AMP ONE (23:18)
[2017-03-06] VITALS (30 sets, daily range): BP systolic 100–145; BP diastolic 46–72
[2017-03-06] MEDS ORDERED: fentaNYL INJECTION 100 MCG/2 ML AMP IV ONE (00:15)
[2017-03-06] MEDS ORDERED: FUROSEMIDE 40 MG/4 ML INJ (LASIX) IV ONE (00:45)
[2017-03-06] MEDS: PROPOFOL DRIP (ICU) 100 ML IV SCH (01:54)
[2017-03-06] MEDS: PIPERACILLIN SODIUM/TAZOBACTAM 4.5 GM in NS (IVPB) 100 ML IV SCH ×4 (01:55→23:37)
[2017-03-06 01:58] LABS: BASOPHILS % (AUTO) 0 % (0-10); EOSINOPHILS % (AUTO) 0 % (0-10); HEMATOCRIT 36 % (40-54); LYMPHOCYTES # (AUTO) 0.7 X 10^3 (1.0-4.0); LYMPHOCYTES % (AUTO) 8 % (12-44); MEAN CORPUSCULAR HEMOGLOBIN 33 PG (25-34); MEAN CORPUSCULAR HGB CONC 34 G/DL (32-36); MEAN CORPUSCULAR VOLUME 98 FL (80-99); MONOCYTES # (AUTO) 0.4 X 10^3 (0.0-1.0); MONOCYTES % (AUTO) 4 % (0-12); NEUTROPHILS # (AUTO) 7.9 X 10^3 (1.8-7.8); NEUTROPHILS % (AUTO) 88 % (42-75); PLATELET COUNT 213 10^3/uL (130-400); RED BLOOD COUNT 3.65 10^6/uL (4.35-5.85); RED CELL DISTRIBUTION WIDTH 14.2 % (10.0-14.5); WHITE BLOOD COUNT 8.9 10^3/uL (4.3-11.0)
[2017-03-06 02:02] LABS: ABG BASE EXCESS -3.2 MMOL/L (-2.5-2.5); ABG OXYGEN SATURATION 97 % (94-100); ABG PCO2 40 MMHG (35-45); ABG PH 7.35 (7.37-7.43); ABG PO2 87 MMHG (79-93); ABG TCO2 22.5 MMOL/L (21.0-31.0)
[2017-03-06 02:03] LABS: ALLENS TEST ART LINE; INSPIRED O2 30%
[2017-03-06 02:04] LABS: PATIENT TEMP 99.6; VENTILATOR YES
[2017-03-06] MEDS: RT-ALBUTEROL/IPRATROPIUM 3 ML (DUONEB) VIAL INH SCH ×6 (02:11→22:36)
[2017-03-06 02:32] LABS: BUN/CREATININE RATIO 23; CALCIUM 8.1 MG/DL (8.5-10.1); CARBON DIOXIDE 19 MMOL/L (21-32); CHLORIDE 114 MMOL/L (98-107); CREATININE SERUM 0.82 MG/DL (0.60-1.30); GFR ESTIMATED > 60; GLUCOSE 145 MG/DL (70-105); MAGNESIUM 2.4 MG/DL (1.8-2.4); POTASSIUM 4.4 MMOL/L (3.6-5.0); SODIUM 143 MMOL/L (135-145)
[2017-03-06] MEDS: inSUlin (REGULAR) HUMAN 1 UNIT/0.01 ML (CHARGE PER UNIT) SC SCH ×4 (03:20→18:38)
[2017-03-06] MEDS: KCL 20 MEQ TAB (K-DUR) PO SCH (04:08)
[2017-03-06] MEDS: POTASSIUM CL 10MEQ/50ML IVPB 50 ML IV SCH (04:08)
[2017-03-06] MEDS: MAGNESIUM 1 GM/100 ML IVPB 100 ML IV SCH (04:08)
[2017-03-06] MEDS: methylPREDNISolone 40 MG/ML (Solu-MEDROL) VIAL IV SCH ×4 (04:28→22:48)
--- NOTE | 2017-03-06 05:33 | Pulmonary Progress Note ---
Subjective Time Seen by Provider: 05:41 Subjective/Events-last exam Pt appears better on vent. Exam Exam Vital Signs Date Time Temp Pulse Resp B/P (MAP) Pulse Ox O2 Delivery O2 Flow Rate FiO2 03/06/17 04:12 75 28 95 03/06/17 04:02 73 22 95 30 03/06/17 04:00 Mechanical Ventilator 30.00 93 03/06/17 04:00 61 18 140/67 (91) 96 Mechanical Ventilator 30.00 03/06/17 03:00 64 19 138/65 (89) 92 Mechanical Ventilator 30.00 03/06/17 02:03 56 22 95 30 03/06/17 02:00 60 20 141/70 (93) 96 Mechanical Ventilator 30.00 03/06/17 01:54 96.6 61 19 144/68 96 Mechanical Ventilator 30.00 03/06/17 01:00 58 20 134/72 (92) 96 Mechanical Ventilator 30.00 03/06/17 01:00 57 03/06/17 00:09 58 21 95 30 03/06/17 00:00 Mechanical Ventilator 30.00 96 03/06/17 00:00 58 15 129/68 (88) 95 Mechanical Ventilator 30.00 03/05/17 23:00 61 19 144/68 (93) 96 Mechanical Ventilator 30.00 03/05/17 22:00 57 20 126/64 (84) 97 Mechanical Ventilator 30.00 03/05/17 21:47 55 22 97 30 03/05/17 21:00 54 19 130/64 (86) 96 Mechanical Ventilator 30.00 03/05/17 20:09 60 21 95 30 03/05/17 20:00 61 20 141/70 (93) 96 Mechanical Ventilator 30.00 03/05/17 20:00 Mechanical Ventilator 30.00 95 03/05/17 19:59 96.6 Mechanical Ventilator 30.00 03/05/17 19:00 78 03/05/17 19:00 68 26 136/68 (90) 62 Mechanical Ventilator 30.00 18 18:43 62 21 95 30 18 18:00 65 26 137/69 (91) 95 Mechanical Ventilator 30.00 03/05/17 17:00 64 22 128/66 (86) 95 Mechanical Ventilator 30.00 03/05/17 16:40 Mechanical Ventilator 30.00 94 03/05/17 16:29 61 22 96 30 03/05/17 16:00 96.6 Mechanical Ventilator 30.00 03/05/17 16:00 59 25 125/69 (87) 97 Mechanical Ventilator 30.00 03/05/17 15:55 100/60 03/05/17 15:00 59 25 118/65 (82) 97 Mechanical Ventilator 30.00 03/05/17 14:00 58 22 118/64 (82) 97 Mechanical Ventilator 30.00 03/05/17 13:55 58 21 97 30 03/05/17 13:00 60 03/05/17 13:00 60 20 119/63 (81) 98 Mechanical Ventilator 30.00 03/05/17 12:00 97.4 Mechanical Ventilator 30.00 03/05/17 12:00 Mechanical Ventilator 30.00 94 03/05/17 12:00 70 21 117/62 (80) 94 Mechanical Ventilator 30.00 03/05/17 11:01 112/55 03/05/17 11:00 75 21 109/54 (72) 93 Mechanical Ventilator 30.00 03/05/17 10:46 64 20 94 30 03/05/17 10:00 69 21 112/57 (75) 94 Mechanical Ventilator 30.00 03/05/17 09:00 80 22 122/56 (78) 95 Mechanical Ventilator 30.00 03/05/17 08:43 69 21 94 30 03/05/17 08:20 Mechanical Ventilator 30.00 94 03/05/17 08:00 98.4 Mechanical Ventilator 30.00 03/05/17 08:00 74 23 114/58 (76) 93 Mechanical Ventilator 30.00 03/05/17 07:00 77 24 117/59 (78) 92 Mechanical Ventilator 30.00 03/05/17 07:00 77 03/05/17 06:16 71 20 94 30 03/05/17 06:00 74 21 112/58 (76) 94 Mechanical Ventilator 30.00 I & O 03/06/17 07:00 Intake Total 1100 ml Output Total 5500 ml Balance -4400 ml General Appearance: No Apparent Distress, Other (sedated on vent ) HEENT: PERRL/EOMI, Normal ENT Inspection Neck: Full Range of Motion, Normal Inspection, Non Tender, Supple Respiratory: Accessory Muscle Use, Decreased Breath Sounds, Respiratory Distress, Wheezing Cardiovascular: Regular Rate, Rhythm, No Edema Capillary Refill: Less Than 3 Seconds Gastrointestinal: normal bowel sounds, non tender, soft Extremity: Normal Capillary Refill, Normal Inspection, Normal Range of Motion Skin: Normal Color, Warm/Dry Results Lab Laboratory Tests 03/05/17 04:30 03/06/17 01:40 Assessment/Plan Assessment/Plan Pneumonia with sepsis -Continue Zosyn -- D/C Vanco -Carson culture negative -IVF - to KVO Acute respiratory failure - failing BiPAP therapy -pt is sedated on vent -Will start weaning vent this AM -Solumedrol 40 IV Q 6 -SVNs Tobacco use -education -Check PFT as out patient Obesity with probable JOYCELYN -PT will need out patient PSG and work up 233 Clinical Quality Measures DVT/VTE Risk/Contraindication: Risk Factor Score Per Nursin RFS Level Per Nursing on Admit: 3=High TEJA ADAMS DO Mar 06, 2017 05:33
[2017-03-06] MEDS ORDERED: FUROSEMIDE 40 MG/4 ML INJ (LASIX) ONE (05:35)
[2017-03-06] MEDS: NS IV 1000 ML 1,000 ML IV SCH (05:42)
[2017-03-06] MEDS ORDERED: FUROSEMIDE 40 MG/4 ML INJ (LASIX) IVP ONE (05:45)
[2017-03-06 06:50] LABS: ABG BASE EXCESS 1.1 MMOL/L (-2.5-2.5); ABG OXYGEN SATURATION 89 % (94-100); ABG PCO2 36 MMHG (35-45); ABG PH 7.45 (7.37-7.43); ABG PO2 53 MMHG (79-93); ABG TCO2 25.9 MMOL/L (21.0-31.0)
[2017-03-06 06:52] LABS: ALLENS TEST ART LINE; INSPIRED O2 30%
[2017-03-06 06:53] LABS: PATIENT TEMP 97.7; VENTILATOR YES
[2017-03-06] MEDS ORDERED: morphine INJ 4 MG/ML 1 ML (VIAL/SYRINGE) ONE (07:15)
[2017-03-06] MEDS ORDERED: RT-ALBUTEROL SULF 2.5 MG/3 ML PRE-MIX VIAL ONE (07:16)
[2017-03-06] MEDS: RT-ALBUTEROL/IPRATROPIUM 3 ML (DUONEB) VIAL INH PRN (07:24)
[2017-03-06] MEDS ORDERED: morphine INJ 4 MG/ML 1 ML (VIAL/SYRINGE) IVP NR (07:30)
--- NOTE | 2017-03-06 07:52 | Diagnostic Imaging Report ---
INDICATION: Hypoxia FINDINGS: ET tube in good position mid trachea, OG in the stomach. Right IJ at the SVC. There is some perihilar congestion and suprahilar opacity greater left than right has improved. No effusion or pneumothorax. IMPRESSION: Improvements in central congestion. No adverse development. Stable support apparatus. Dictated by: Dictated on workstation # [id number]
[2017-03-06] MEDS: FAMOTIDINE 20MG/2ML IV (PEPCID) IVP SCH ×2 (09:39→20:57)
--- NOTE | 2017-03-06 11:33 | Progress Note-Hospitalist ---
Progress Note HPI/CC on Admission The patient is a 46-year-old white male who arrived at the emergency room late last evening by EMS. He apparently had been ill with upper respiratory symptoms for several days which included fever and cough. This has gotten progressively worse. On the date of admission he told the paramedics that he believes he was going to quit breathing he was noted to be febrile at 101.1 he stated that he seems to get pneumonia about once a year. He continues to smoke. His states that she is concerned on the basis of his snoring and irregular respiration during sleep that he has sleep apnea. Subsequently he continued to exhibits considerable difficulty in maintaining his SaO2 at a satisfactory level. He was assessed by Dr. Blackwell from pulmonary and was intubated and sedated and placed on the ventilator. Progress Notes/Assess & Plan Date Seen 03/06/17 Time Seen by Provider: 10:30 Diagonsis/Assessment & Plan Mr. Velasquez was extubated this morning around 0700. Initially he was placed on HFNC but had to be transitioned to Bi-PAP. He is maintaining goo oxygenation but seems to have some anxiety about his current situation. His blood cultures were negative and vancomycin was d/c'd, but he is continuing the zosyn. His was at bedside on exam. He only answered yes no questions and was going in and out of sleep ROS: Const- Sleepy, answers yes no questions. Resp- no cough + SOB with increase WOB Cardiac- No CP. Denies palpitations GI- no abdominal pain. MSK- no joint swelling or pain PE: General- In and out of sleep. Sitting in bed with bi-pap mask on. HEENT- non-traumatic, normocephalic, PERRLA Cardio- RRR, no murmurs rubs or gallops appreciated Resp- Even chest movement, on bi-pap CTAB but diminished in right base > left GI- NTTP, no distention, -- BS Ext- no LE swelling, FROM of all extremities Neuro- opens eyes to name and is able to answer simple questions. He is very tired appearing Assessment: Pneumonia with ventilator dependent respiratory failure- extubated now Sepsis Anemia History of GERD Anxiety Plan: Extubated this AM, but continues to require non-invasive support I appreciate Dr. Blackwell's expertise De-escalated abx to just zosyn. Vanco was d/c'd after cultures resulted negative He continues to need ICU level care but his labs continue to improve and remains afebrile Monitor closely Ativan ordered Hopefully transfer to 4th floor tomorrow YANG HERNANDEZ DO Mar 06, 2017 11:33
[2017-03-06] MEDS: LORazepam 0.5 MG (ATIVAN) TABLET PO PRN ×2 (12:21→20:43)
[2017-03-06] MEDS ORDERED: PIPERACILLIN SODIUM/TAZOBACTAM 4.5 GM in D5W 100 ML IVPB 100 ML IV SCH (16:00)
[2017-03-06] MEDS: NS IV SCH ×4 (16:08→20:50)
[2017-03-06] MEDS: DEXMEDETOMIDINE IV SCH ×4 (16:08→20:50)
[2017-03-06] MEDS ORDERED: NICOTINE 21 MG (NICODERM) PATCH ONE (20:34)
[2017-03-06] MEDS: ACETAMINOPHEN 325 MG TABLET/CAPLET (TYLENOL) PO PRN (20:44)
[2017-03-06] MEDS: IBUPROFEN 600 MG (MOTRIN) TAB PO PRN (20:44)
[2017-03-06] MEDS ORDERED: VANCOMYCIN 1000 MG/VIAL ONE (23:16)
[2017-03-06] MEDS ORDERED: NS IV 500 ML 500 ML ONE (23:16)
[2017-03-06] MEDS ORDERED: VANCOMYCIN 750 MG/VIAL IV ONE (23:16)
[2017-03-06] MEDS: VANCOMYCIN INJECTION 1,750 MG in NS IV 500 ML 500 ML IV SCH (23:37)
[2017-03-07] VITALS (22 sets, daily range): BP systolic 95–188; BP diastolic 43–93
[2017-03-07] MEDS: inSUlin (REGULAR) HUMAN 1 UNIT/0.01 ML (CHARGE PER UNIT) SC SCH ×4 (00:56→17:32)
[2017-03-07] MEDS: RT-ALBUTEROL/IPRATROPIUM 3 ML (DUONEB) VIAL INH SCH ×6 (02:11→22:35)
[2017-03-07] MEDS: ACETAMINOPHEN 325 MG TABLET/CAPLET (TYLENOL) PO PRN (02:14)
[2017-03-07] MEDS: LORazepam 0.5 MG (ATIVAN) TABLET PO PRN (02:15)
[2017-03-07 04:09] LABS: ABG BASE EXCESS 2.5 MMOL/L (-2.5-2.5); ABG OXYGEN SATURATION 89 % (94-100); ABG PCO2 40 MMHG (35-45); ABG PH 7.44 (7.37-7.43); ABG PO2 56 MMHG (79-93); ABG TCO2 27.7 MMOL/L (21.0-31.0)
[2017-03-07 04:10] LABS: ALLENS TEST ART LINE; INSPIRED O2 21% BIPAP; PATIENT TEMP 97.7; VENTILATOR YES
[2017-03-07 04:15] LABS: BASOPHILS % (AUTO) 0 % (0-10); EOSINOPHILS % (AUTO) 0 % (0-10); HEMATOCRIT 33 % (40-54); HEMOGLOBIN 11.1 G/DL (13.3-17.7); LYMPHOCYTES # (AUTO) 0.7 X 10^3 (1.0-4.0); LYMPHOCYTES % (AUTO) 9 % (12-44); MEAN CORPUSCULAR HEMOGLOBIN 33 PG (25-34); MEAN CORPUSCULAR HGB CONC 34 G/DL (32-36); MEAN CORPUSCULAR VOLUME 98 FL (80-99); MEAN PLATELET VOLUME 10.2 FL (7.4-10.4); MONOCYTES # (AUTO) 0.3 X 10^3 (0.0-1.0); MONOCYTES % (AUTO) 4 % (0-12); NEUTROPHILS # (AUTO) 6.5 X 10^3 (1.8-7.8); NEUTROPHILS % (AUTO) 88 % (42-75); PLATELET COUNT 212 10^3/uL (130-400); RED BLOOD COUNT 3.36 10^6/uL (4.35-5.85); RED CELL DISTRIBUTION WIDTH 14.2 % (10.0-14.5); WHITE BLOOD COUNT 7.5 10^3/uL (4.3-11.0)
[2017-03-07 04:46] LABS: ALANINE AMINOTRANSFERASE 56 U/L (0-55); ALKALINE PHOSPHATASE 60 U/L (40-136); BILIRUBIN,TOTAL 0.4 MG/DL (0.1-1.0); BUN/CREATININE RATIO 42; CALCIUM 8.2 MG/DL (8.5-10.1); CARBON DIOXIDE 24 MMOL/L (21-32); CHLORIDE 108 MMOL/L (98-107); CREATININE SERUM 0.86 MG/DL (0.60-1.30); GFR ESTIMATED > 60; GLUCOSE 148 MG/DL (70-105); MAGNESIUM 2.2 MG/DL (1.8-2.4); PHOSPHORUS 3.4 MG/DL (2.3-4.7); POTASSIUM 3.5 MMOL/L (3.6-5.0); SODIUM 144 MMOL/L (135-145); TOTAL PROTEIN 5.5 GM/DL (6.4-8.2)
[2017-03-07] MEDS: MAGNESIUM 1 GM/100 ML IVPB 100 ML IV SCH ×2 (04:47→20:15)
[2017-03-07] MEDS: KCL 20 MEQ TAB (K-DUR) PO SCH ×2 (04:47→20:16)
[2017-03-07] MEDS: POTASSIUM CL 10MEQ/50ML IVPB 50 ML IV SCH ×2 (04:47→20:15)
[2017-03-07] MEDS ORDERED: MINERAL OIL ENEMA 133 ML BTL PR PRN (05:15)
[2017-03-07] MEDS ORDERED: MAGNESIUM CITRATE 300 ML BTL PO PRN (05:15)
--- NOTE | 2017-03-07 05:19 | Pulmonary Progress Note ---
Subjective Time Seen by Provider: 05:40 Subjective/Events-last exam Pt is doing much better he is getting very anxious. Exam Exam Vital Signs Date Time Temp Pulse Resp B/P (MAP) Pulse Ox O2 Delivery O2 Flow Rate FiO2 03/07/17 04:31 80 24 96 21.00 03/07/17 04:00 52 18 109/46 (67) 95 NIV Bilevel 25.00 03/07/17 04:00 94 NIV Bilevel 21 03/07/17 03:00 61 17 112/43 (66) 92 NIV Bilevel 25.00 03/07/17 02:11 59 17 98 21.00 03/07/17 02:00 84 14 95/46 (62) 97 NIV Bilevel 25.00 03/07/17 01:00 52 03/07/17 01:00 52 18 104/46 (65) 97 NIV Bilevel 25.00 03/07/17 00:35 49 17 98 25.00 03/07/17 00:00 66 21 110/50 (70) 100 NIV Bilevel 25.00 03/07/17 00:00 99.1 03/07/17 00:00 96 NIV Bilevel 25 03/06/17 23:00 69 18 119/51 (73) 98 NIV Bilevel 25.00 03/06/17 22:36 71 23 97 25.00 03/06/17 22:00 73 15 110/54 (72) 95 NIV Bilevel 25.00 03/06/17 21:30 NIV Bilevel 25.00 03/06/17 21:00 84 19 111/59 (76) 97 NIV Bilevel 40.00 03/06/17 20:25 75 19 96 25.00 03/06/17 20:00 83 24 124/55 (78) 97 NIV Bilevel 40.00 03/06/17 20:00 NIV Bilevel 03/06/17 19:30 98.8 03/06/17 19:00 82 03/06/17 19:00 82 20 132/52 (78) 97 NIV Bilevel 40.00 03/06/17 18:22 68 19 98 30.00 03/06/17 18:00 84 16 116/51 (72) 97 NIV Bilevel 40.00 03/06/17 17:00 67 22 116/59 (78) 98 NIV Bilevel 40.00 03/06/17 16:00 NIV Bilevel 40 03/06/17 16:00 62 21 114/49 (70) 98 NIV Bilevel 40.00 03/06/17 15:46 67 16 98 30.00 03/06/17 15:00 56 19 113/47 (69) 94 NIV Bilevel 40.00 03/06/17 14:00 62 19 111/46 (67) 94 NIV Bilevel 40.00 03/06/17 13:29 58 14 100 40.00 30.00 03/06/17 13:00 61 20 117/52 (73) 97 NIV Bilevel 40.00 03/06/17 13:00 68 03/06/17 12:00 70 22 119/52 (74) 99 NIV Bilevel 40.00 03/06/17 12:00 NIV Bilevel 50 03/06/17 11:00 68 21 125/55 (78) 100 NIV Bilevel 40.00 03/06/17 10:00 93 20 127/55 (79) 96 NIV Bilevel 40.00 03/06/17 09:48 75 25 97 40.00 03/06/17 09:00 77 16 135/66 (89) 98 NIV Bilevel 40.00 03/06/17 08:14 97 27 97 50.00 03/06/17 08:00 105 19 117/70 (86) 97 NIV Bilevel 50.00 03/06/17 08:00 98.5 NIV Bilevel 40.00 03/06/17 08:00 NIV Bilevel 50 03/06/17 07:25 5.00 03/06/17 07:00 107 21 114/62 (79) 90 Nasal Cannula 2.00 03/06/17 07:00 109 03/06/17 06:00 66 28 92 03/06/17 06:00 71 30 145/68 (93) 93 Mechanical Ventilator 30.00 I & O 03/07/17 07:00 Intake Total 220 ml Output Total 2450 ml Balance -2230 ml General Appearance: No Apparent Distress, Other (sedated on vent ) HEENT: PERRL/EOMI, Normal ENT Inspection Neck: Full Range of Motion, Normal Inspection, Non Tender, Supple Respiratory: Accessory Muscle Use, Decreased Breath Sounds, Respiratory Distress, Wheezing Cardiovascular: Regular Rate, Rhythm, No Edema Capillary Refill: Less Than 3 Seconds Gastrointestinal: normal bowel sounds, non tender, soft Extremity: Normal Capillary Refill, Normal Inspection, Normal Range of Motion Skin: Normal Color, Warm/Dry Results Lab Laboratory Tests 03/06/17 01:40 03/07/17 04:00 Assessment/Plan Assessment/Plan Pneumonia with sepsis with MRSA -Continue Vanco D/C zosyn -Carson culture negative -IVF - to KVO Acute respiratory failure - failing BiPAP therapy -pt is sedated on vent -Will start weaning vent this AM -Solumedrol 40 IV Q 6 -SVNs Depression/anxiety -Start Wellbutrin ( to also help with smoking cessation) -Increase activity -Pt/OT Weakness/debility -PT/OT Tobacco use -education -Check PFT as out patient Obesity with probable JOYCELYN -PT will need out patient PSG and work up 233 Clinical Quality Measures DVT/VTE Risk/Contraindication: Risk Factor Score Per Nursin RFS Level Per Nursing on Admit: 3=High TEJA ADAMS DO Mar 07, 2017 05:19
[2017-03-07] MEDS ORDERED: POTASSIUM CHLORIDE INJ 20 MEQ in 1/2 NS IV SOLUTION 1,000 ML IV SCH (05:30)
[2017-03-07] MEDS ORDERED: IBUPROFEN 600 MG (MOTRIN) TAB PO PRN (05:45)
[2017-03-07] MEDS: morphine INJ 4 MG/ML 1 ML (VIAL/SYRINGE) IVP PRN ×4 (06:12→20:29)
[2017-03-07] MEDS: methylPREDNISolone 40 MG/ML (Solu-MEDROL) VIAL IV SCH ×3 (06:48→19:27)
[2017-03-07] MEDS ORDERED: KCL 20 MEQ TAB (K-DUR) PO ONE (07:15)
--- NOTE | 2017-03-07 08:52 | Diagnostic Imaging Report ---
INDICATION: Pneumonia, sepsis, dyspnea. TECHNIQUE: Single view chest at 4:30 AM. CORRELATION STUDY: 03/05/2017. FINDINGS: There has been interval extubation with removal of the gastric tube. The right IJ central line is unchanged. The heart size is enlarged and there is mild pulmonary vascular congestion which appears slightly increased from the prior study. Opacification the right infrahilar region is slightly more prominent and could be reflective of underlying infiltrate or atelectasis. IMPRESSION: 1. Interval extubation. 2. Cardiac enlargement with the vasculature slightly increased from the prior study. 3. Suggestion of slightly increasing atelectasis and/or infiltrate in the right lung base. Dictated by: Dictated on workstation # [id number]
[2017-03-07] MEDS ORDERED: risperiDONE 1 MG (RisperDAL) TAB PO SCH (09:00)
[2017-03-07] MEDS ORDERED: PARoxetine 20 MG (PAXIL) TAB PO SCH (09:00)
[2017-03-07] MEDS: FAMOTIDINE 20MG/2ML IV (PEPCID) IVP SCH ×2 (09:12→21:23)
[2017-03-07] MEDS: NICOTINE 21 MG (NICODERM) PATCH TD SCH (09:13)
[2017-03-07] MEDS: DOCUSATE SODIUM 100 MG (COLACE) CAP PO SCH ×2 (09:13→21:22)
[2017-03-07] MEDS: risperiDONE 1 MG (RisperDAL) TAB PO SCH ×2 (09:13→21:23)
[2017-03-07] MEDS: LIDOCAINE (LIDODERM) 5% PATCH TOP SCH (09:13)
[2017-03-07] MEDS: buPROPion SR 150 MG (WELLBUTRIN SR) TAB PO SCH ×2 (09:13→21:23)
--- NOTE | 2017-03-07 10:44 | Progress Note-Hospitalist ---
TEJA HUFFMAN MEDICAL STUDENT 03/07/17 1044: Progress Note HPI/CC on Admission The patient is a 46-year-old white male who arrived at the emergency room late last evening by EMS. He apparently had been ill with upper respiratory symptoms for several days which included fever and cough. This has gotten progressively worse. On the date of admission he told the paramedics that he believes he was going to quit breathing he was noted to be febrile at 101.1 he stated that he seems to get pneumonia about once a year. He continues to smoke. His states that she is concerned on the basis of his snoring and irregular respiration during sleep that he has sleep apnea. Subsequently he continued to exhibits considerable difficulty in maintaining his SaO2 at a satisfactory level. He was assessed by Dr. Blackwell from pulmonary and was intubated and sedated and placed on the ventilator. Progress Notes/Assess & Plan Date Seen 03/07/17 Time Seen by Provider: 10:00 Diagonsis/Assessment & Plan Pt up in chair on RA on exam this morning. Prior to walking in the room he seemed comfortable and in no resp distress with VSS. On exam he states that he cant catch his breath and is unable to take deep breaths.He had an ABG drawn this am that was normal. His sputum cx grew MRSA and he was put on vanc. CXR was negative today. He seems to be anxious about the current situation and may benefit from some therapy and anxiolytics ROS: Const- " I feel like i cant breath" Resp- - cough, + SOB Cardiac- No CP. Denies palpitations GI- No abdominal pain, No BM MSK- no joint swelling or pain, +pain with deep inspiration Psych- anxious PE: General- NAD from hallway. Mild distress on exam. Up in chair on RA and satting in the upper 90's HEENT- non-traumatic, normocephalic, PERRLA Cardio- RRR, no murmurs rubs or gallops appreciated Resp- Even chest movement, CTAB but 2/2 shallow breaths there is not much air movement GI- NTTP, soft and non distended, -BS Ext- no LE swelling, FROM of all extremities Neuro- AOx3 Assessment: Pneumonia with ventilator dependent respiratory failure- extubated now Sepsis Anemia History of GERD Anxiety Plan: Is on RA and satting in the upper 90's I appreciate Dr. Blackwell's expertise Vanco was started for MRSA coverage and he was placed on isolation precautions Consider scheduled ativan Will transfer to 4th floor today Monitor closely YANG HERNANDEZ DO 03/07/17 1101: Progress Note Progress Notes/Assess & Plan Time Seen by Provider: 11:00 Diagonsis/Assessment & Plan Pt very difficult to manage emotional status. Has panic attacks at home apparently and has breathing issues at home and uses Proair but has not had medical treatment for it in a formal manner Ativan ordered but does not appear to be helpful. at bedside Appears to work at [employer] at [employer] so he appears to be able to function normally under normal circumstances. Very difficult to cope. AFVSS, Pleasant, O x 3, anxious, very stiff posture RRR, CTAB diminished in bases A/P: VDRF Smoker Panic attacks Plan: Tx to floor Difficult coping TEJA HUFFMAN MEDICAL STUDENT Mar 07, 2017 10:44 YANG HERNANDEZ DO Mar 07, 2017 11:01
--- NOTE | 2017-03-07 10:50 | Physical Therapy Evaluation ---
PT Evaluation-General Medical Diagnosis Admission Date Mar 03, 2017 at 22:40 Medical Diagnosis: pneumonia Onset Date: Mar 03, 2017 Therapy Diagnosis Therapy Diagnosis: generalized weakness/debility Height/Weight Height (Feet): 5 Height (Inches): 8.00 Weight (Pounds): 211 Weight (Ounces): 0.0 Precautions Precautions/Isolations: Standard Precautions Weight Bear Status Right Lower Extremity: Right Full Weight Bearing Left Lower Extremity: Left Full Weight Bearing Referral Physician: Rosalva Reason for Referral: Evaluation/Treatment Medical History Pertinent Medical History: GERD, Smoking Additional Medical History chronic back pain Current History EMS due to SOA and fever and required intubation/ventilator and is currently on O2 NC Reviewed History: Yes Social History Home: Single Level Current Living Status: Spouse Prior/Core FIM Prior Level of Function Functional [place] Measure 0=Not Assessed/NA 4=Minimal Assistance 1=Total Assistance 5=Supervision or Setup 2=Maximal Assistance 6=Modified [place] 3=Moderate Assistance 7=Complete [place] Bed Mobility: 7 Transfers (B,C,W/C) (FIM): 7 Gait: 7 Locomotion: 7 PT Evaluation-Current Subjective Patient is very reluctant to participate with therapy due to SOA. PT reassured patient all vitals were currently stable. Patient agrees. Pain Numeric Pain Scale: 5-Moderate Pain Location: Medial Location Body Site: Chest Pain Description: Ache Objective Patient Orientation: Normal For Age Problem Solving: Good ROM/Strength ROM Lower Extremities bilateral LE WNL Strength Lower Extremities right knee flexion/extension 4/5; hip flexion 4/5; DF/PF 4/5 left knee flexion/extension 4/5; hip flexion 4/5; DF/PF 4/5 Integumentary/Posture Integumentary refer to nursing notes Bowel Incontinence: No Bladder Incontinence: Nance Cath Posture WNL Neuromuscular (Tone, Coordination, Reflexes) grossly intact Sensory Vision: Functional Hearing: Functional Sensation Right Lower Extremit: Intact Sensation Left Lower Extremity: Intact Transfers Functional [place] Measure 0=Not Assessed/NA 4=Minimal Assistance 1=Total Assistance 5=Supervision or Setup 2=Maximal Assistance 6=Modified [place] 3=Moderate Assistance 7=Complete [place] Transfers (B, C, W/C) (FIM): 4 Scootin Rollin Supine to/from Sit: 4 Sit to/from Stand: 4 bed t/f WC(FIM only if WC use): 4 CGA for safety Gait Mode of Locomotion: Walk Anticipated Mode of Locomotion: Walk Gait (FIM): 1 Distance (FIM): 1=up to 49 ft Distance: 10' Gait Level of Assist: 4 Gait Persons Needed: 1 Gait Assistive Device: None Comments/Gait Description guarded due to fear and SOA Balance Sitting Static: Normal Sitting Dynamic: Normal Standing Static: Good Standing Dynamic: Good Assessment/Needs 46 y.o. male, will benefit from short term skilled PT to address functional mobility to ensure safe return to home with spouse. Patient limits self due to SOA with vitals remaining WNL. Rehab Potential: Good PT Detention Goals Visual Lead Goals PT Detention Goals Time Frame: Mar 12, 2017 Transfers (B,C,W/C) (FIM): 7 Gait (FIM): 7 Gait distance (FIM): 3=150 ft Distance: 300' Gait Level of Assist: 7 PT Plan Problem List Problem List: Activity Tolerance Treatment/Plan Treatment Plan: Continue Plan of Care Treatment Plan: Bed Mobility, Education, Functional Activity Alexandrea, Functional Strength, Gait, Safety, Therapeutic Exercise, Transfers Treatment Duration: Mar 12, 2017 Frequency: 6 times per week Estimated Hrs Per Day: .25 hour per day Patient and/or Family Agrees t: Yes Safety Risks/Education Patient Education: Disease Process, Safety Issues Teaching Recipient: Patient Teaching Methods: Discussion Response to Teaching: Verbalize Understanding Time/GCodes Time In: 830 Time Out: 851 Total Billed Treatment Time: 21 Total Billed Treatment 1 visit EVModC 21 min G Codes Necessary: WESTON Keita PT Mar 07, 2017 10:50
[2017-03-07] MEDS: VANCOMYCIN INJECTION 1,750 MG in NS IV 500 ML 500 ML IV SCH ×2 (11:03→21:23)
[2017-03-07] MEDS: RT-ADVAIR HFA 115/21 MCG PER PUFF IH SCH ×2 (11:17→19:19)
[2017-03-07] MEDS: 1/2 NS W/KCL 20 MEQ/L 1,000 ML IV SCH ×2 (14:00→21:31)
--- NOTE | 2017-03-07 14:52 | Occupational Therapy Eval ---
OT Evaluation-General/PLF Medical Diagnosis Admission Date Mar 03, 2017 at 22:40 Medical Diagnosis: pneumonia Onset Date: Mar 03, 2017 Therapy Diagnosis Therapy Diagnosis: decr self care, decr act lucian, decr funct mobility, weakness Height/Weight Height (Feet): 5 Height (Inches): 8.00 Weight (Pounds): 211 Weight (Ounces): 0.0 Precautions Precautions/Isolations: Fall Prevention, Standard Precautions Safety Interventions: Bed Exit Alarm Referral Physician: Rosalva Referral Reason: Evaluation/Treatment Medical History Pertinent Medical History: GERD, Smoking Additional Medical History Kidney stones, chronic back pain, herniated disk, sleep difficulties, anxiety, panic attacks, sleep apnea Current History Admitted through ED with SOB and ill for several days. Intubated and sedated for several days but now up on room air. 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 Pt said that he had just had a coughing attack but did not rate pain specifically Appearance Alert, cooperative, anxious that he'll quit breathing Mental Status/Objective Attachments: Central Line, Nance Catheter, Telemetry Current Glasses/Contacts: Yes Hearing Aids: No Dentures/Partials: No Hand Dominance: Right Upper Extremity ROM Grossly WFL bilat but difficult to get full ROM due to multiple tubes, wires, etc. Upper Extremity Strength Grossly 4/5 bilat ADL-Treatment ADL-Current Pt was up with PT with CGA for transfer and no AD. He has also been up to the toilet in room and reported that he had a little difficulty getting off toilet without arms. He was able to safely get a drink from a Styrofoam cup with lid. He reported that he has eaten 1 bite of food and felt like he choked on it but did not have difficulties swallowing thin liquids Functional [place] Measure 0=Not Assessed/NA 4=Minimal Assistance 1=Total Assistance 5=Supervision or Setup 2=Maximal Assistance 6=Modified [place] 3=Moderate Assistance 7=Complete IndependenceIRFPAI Quality Coding Scale 6 Independent with activity with or without an assistive device 5 Patient requires set up or clean up by helper. Patient completes activity by themselves 4 Supervision or touching assist (CGA). [place] provide cues , steadying assist 3 The helper provides less than half the effort to complete the activity 2 The helper provides more than half the effort to complete the activity 1 Dependent. The helper does all the effort to complete an activity 7 Patient refused to complete or attempt activity 9 The patient did not perform the activity before the current illness or injury 88 Not attempted due to Medical conditions or safety concerns Other Treatments Pt was shown one bilat UE exercise to do in his chair, working on shoulders and elbows as well as helping AROM, breathing and edema management. He was also given a blue foam hand lens mounter and return demonstrated two exercises to work on muscles in hands and forearms, as well as edema management. After about 10 reps, pt demonstrated decreased edema in bilat hands. pt encouraged to keep hands elevated when possible to help manage edema. Pt verbalized appreciation for exercises that he could do on his own. pt's also indicated understanding. Pt left up in recliner, all needs met. Education OT Patient Education: Exercise program, Purpose of tx/functional activities, Rehab process Teaching Recipient: Patient, Family Teaching Methods: Demonstration, Discussion Response to Teaching: Verbalize Understanding, Return Demonstration, Reinforcement Needed OT Half-Way Goals Noc Engineer Goals Time Frame: Mar 14, 2017 Eating (FIM): 7 Grooming(FIM): 6 Bathing(FIM): 6 Upper Body Dressing(FIM): 6 Lower Body Dressing(FIM): 6 Toileting(FIM): 6 Toilet/Commode Transfer(FIM): 6 Shower Transfer(FIM): 6 Additional Goals: 2-Verbalize Understanding, 3-ImproveStrength/Alexandrea 1=Demonstrate adherence to instructed precautions during ADL tasks. 2=Patient will verbalize/demonstrate understanding of assistive devices/ modifications for ADL. 3=Patient will improve strength/tolerance for activity to enable patient to perform ADL's. OT Education/Plan Problem List/Assessment Assessment: Decreased Activ Tolerance, Decreased UE Strength, Dependent Transfers, Impaired Self-Care Skills Pt would benefit from skilled OT to increase his independence in basic self care and to decrease caregiver burden. Discharge Recommendations Plan/Recommendations: Continue POC Treatment Plan/Plan of Care Treatment,Training & Education: Yes Patient would benefit from OT for education, treatment and training to promote independence in ADL's, mobility, safety and/or upper extremity function for ADL' s. Plan of Care: ADL Retraining, Functional Mobility, UE Funct Exercise/Act Treatment Duration: Mar 14, 2017 Frequency: 5 times per week Estimated Hrs Per Day: .5 hour per day (.25 to .5) Agreement: Yes Rehab Potential: Good Time/GCodes Start Time: 13:32 Stop Time: 14:01 Total Time Billed (hr/min): 29 Billed Treatment Time visit, 14 minutes evaluation moderate intensity, exercise 15 minutes ARCADIO DAMIAN OT Mar 07, 2017 14:52
[2017-03-08] VITALS: BP 121/69
[2017-03-08] MEDS: inSUlin (REGULAR) HUMAN 1 UNIT/0.01 ML (CHARGE PER UNIT) SC SCH ×4 (00:02→18:29)
[2017-03-08] MEDS: methylPREDNISolone 40 MG/ML (Solu-MEDROL) VIAL IV SCH ×4 (01:00→19:00)
[2017-03-08] MEDS: RT-ALBUTEROL/IPRATROPIUM 3 ML (DUONEB) VIAL INH SCH ×6 (02:29→22:46)
[2017-03-08 04:00] VITALS: BP 145/77
[2017-03-08 04:48] LABS: BASOPHILS % (AUTO) 0 % (0-10); EOSINOPHILS % (AUTO) 0 % (0-10); HEMATOCRIT 34 % (40-54); HEMOGLOBIN 11.6 G/DL (13.3-17.7); LYMPHOCYTES # (AUTO) 0.8 X 10^3 (1.0-4.0); LYMPHOCYTES % (AUTO) 14 % (12-44); MEAN CORPUSCULAR HEMOGLOBIN 33 PG (25-34); MEAN CORPUSCULAR HGB CONC 34 G/DL (32-36); MEAN CORPUSCULAR VOLUME 98 FL (80-99); MEAN PLATELET VOLUME 10.6 FL (7.4-10.4); MONOCYTES # (AUTO) 0.4 X 10^3 (0.0-1.0); MONOCYTES % (AUTO) 7 % (0-12); NEUTROPHILS # (AUTO) 4.5 X 10^3 (1.8-7.8); NEUTROPHILS % (AUTO) 79 % (42-75); PLATELET COUNT 203 10^3/uL (130-400); RED CELL DISTRIBUTION WIDTH 14.1 % (10.0-14.5); WHITE BLOOD COUNT 5.7 10^3/uL (4.3-11.0)
[2017-03-08 05:10] LABS: ALANINE AMINOTRANSFERASE 57 U/L (0-55); ALBUMIN 3.3 GM/DL (3.2-4.5); ALKALINE PHOSPHATASE 58 U/L (40-136); BILIRUBIN,TOTAL 0.4 MG/DL (0.1-1.0); BUN/CREATININE RATIO 38; CALCIUM 8.4 MG/DL (8.5-10.1); CARBON DIOXIDE 23 MMOL/L (21-32); CHLORIDE 108 MMOL/L (98-107); CREATININE SERUM 0.77 MG/DL (0.60-1.30); GFR ESTIMATED > 60; GLUCOSE 137 MG/DL (70-105); MAGNESIUM 2.4 MG/DL (1.8-2.4); SODIUM 143 MMOL/L (135-145); TOTAL PROTEIN 5.9 GM/DL (6.4-8.2)
[2017-03-08] MEDS: RT-ADVAIR HFA 115/21 MCG PER PUFF IH SCH ×2 (07:27→19:37)
[2017-03-08 08:00] VITALS: BP 125/75
--- NOTE | 2017-03-08 09:10 | Physical Therapy Daily Note ---
PT Daily Note-Current Subjective Pt reports that he hurts everywhere and is too weak to work. Mental Status Patient Orientation: Person, Place, Time, Situation Transfers Functional [place] Measure 0=Not Assessed/NA 4=Minimal Assistance 1=Total Assistance 5=Supervision or Setup 2=Maximal Assistance 6=Modified [place] 3=Moderate Assistance 7=Complete IndependenceIRFPAI Quality Coding Scale 6 Independent with activity with or without an assistive device 5 Patient requires set up or clean up by helper. Patient completes activity by themselves 4 Supervision or touching assist (CGA). [place] provide cues , steadying assist 3 The helper provides less than half the effort to complete the activity 2 The helper provides more than half the effort to complete the activity 1 Dependent. The helper does all the effort to complete an activity 7 Patient refused to complete or attempt activity 9 The patient did not perform the activity before the current illness or injury 88 Not attempted due to Medical conditions or safety concerns Transfers (B, C, W/C) (FIM): 4 Scootin Rollin Supine to/from Sit: 4 Pt was able to perform supine to sit with minimal assistance. Pt not able to attempt standing. Sat EOB 10min. Weight Bearing Right Lower Extremity: Right Full Weight Bearing Left Lower Extremity: Left Full Weight Bearing Assessment Pt needs to at least attempt standing. A walker will be placed in his room for him to try standing when able. PT Satellite Communications Operator Goals Satellite Communications Operator Goals PT Snf Goals Time Frame: Mar 12, 2017 Transfers (B,C,W/C) (FIM): 7 Gait (FIM): 7 Gait distance (FIM): 3=150 ft Distance: 300' Gait Level of Assist: 7 PT Plan Treatment/Plan Treatment Plan: Continue Plan of Care Treatment Plan: Bed Mobility, Education, Functional Activity Alexandrea, Functional Strength, Gait, Safety, Therapeutic Exercise, Transfers Treatment Duration: Mar 12, 2017 Frequency: 6 times per week Estimated Hrs Per Day: .25 hour per day Patient and/or Family Agrees t: Yes Time/GCodes Time In: 0850 Time Out: 0903 Total Billed Treatment Time: 13 Total Billed Treatment 1, fa 13 PAULINE EDMONDSON PT Mar 08, 2017 09:10
[2017-03-08] MEDS: FAMOTIDINE 20MG/2ML IV (PEPCID) IVP SCH ×2 (09:27→20:30)
[2017-03-08] MEDS: buPROPion SR 150 MG (WELLBUTRIN SR) TAB PO SCH ×2 (09:27→20:30)
[2017-03-08] MEDS: VANCOMYCIN INJECTION 1,750 MG in NS IV 500 ML 500 ML IV SCH ×2 (09:27→20:30)
[2017-03-08] MEDS: DOCUSATE SODIUM 100 MG (COLACE) CAP PO SCH ×2 (09:27→20:29)
[2017-03-08] MEDS: LIDOCAINE (LIDODERM) 5% PATCH TOP SCH (09:28)
[2017-03-08] MEDS: NICOTINE 21 MG (NICODERM) PATCH TD SCH (09:28)
[2017-03-08] MEDS: risperiDONE 1 MG (RisperDAL) TAB PO SCH ×2 (09:28→20:29)
[2017-03-08] MEDS ORDERED: RT-ALBUTEROL SULF 2.5 MG/3 ML PRE-MIX VIAL ONE (10:54)
[2017-03-08] MEDS ORDERED: RT-ALBUTEROL SULF 2.5 MG/3 ML PRE-MIX VIAL INH NR (11:00)
--- NOTE | 2017-03-08 11:14 | Progress Note-Hospitalist ---
Subjective HPI/CC On Admission Date Seen by Provider: Mar 08, 2017 Time Seen by Provider: 10:55 The patient is a 46-year-old white male who arrived at the emergency room late last evening by EMS. He apparently had been ill with upper respiratory symptoms for several days which included fever and cough. This has gotten progressively worse. On the date of admission he told the paramedics that he believes he was going to quit breathing he was noted to be febrile at 101.1 he stated that he seems to get pneumonia about once a year. He continues to smoke. His states that she is concerned on the basis of his snoring and irregular respiration during sleep that he has sleep apnea. Subsequently he continued to exhibits considerable difficulty in maintaining his SaO2 at a satisfactory level. He was assessed by Dr. Blackwell from pulmonary and was intubated and sedated and placed on the ventilator. Subjective/Events-last exam Pt is a sitting at bedside and appears incredibly anxious. Repeats that he's scared he's going to stop breathing. at bedside reports he is very anxious at baseline. He requests only albuterol for his breathing treatments as he thinks that helps more. Objective Exam Vital Signs Vital Sign - Last 12Hours 03/03/17 03/04/17 21:47 00:20 Temp 101.5 Pulse 109 Resp 20 B/P (MAP) 98/45 (62) Pulse Ox 96 O2 Delivery Nasal Cannula O2 Flow Rate 4.00 FiO2 40 Capillary Refill : Less Than 3 Seconds General Appearance: No Apparent Distress, WD/WN, Anxious Respiratory: No Accessory Muscle Use, No Respiratory Distress, Rhonci Cardiovascular: Regular Rate, Rhythm, No Murmur Neurologic/Psychiatric: Alert, Oriented x3 Results/Procedures Lab Laboratory Tests 03/08/17 04:15 Assessment/Plan Assessment and Plan Assess & Plan/Chief Complaint CAP Diagnosis/Problems Diagnosis/Problems (1) CAP (community acquired pneumonia) Status: Acute Assessment & Plan: s/p extubation MRSA in sputum Continue in Vanc Pulm consulted, appreciate recs Will transition to oral steroids from IV MAT protocol Qualifiers: (2) Anxiety Assessment & Plan: Profound anxiety Did not tolerate Ativan Apprehensive about started anxiety medicine Agreeable to small dose of Xanax to see if it helps I would prefer longer acting if able DON RICHTER MD Mar 08, 2017 11:13
[2017-03-08] MEDS ORDERED: ALPRAZolam 0.25 MG (XANAX) TAB PO NR (11:15)
[2017-03-08] MEDS: 1/2 NS W/KCL 20 MEQ/L 1,000 ML IV SCH ×2 (11:45→20:36)
[2017-03-08 12:00] VITALS: BP 122/72
[2017-03-08] MEDS: morphine INJ 4 MG/ML 1 ML (VIAL/SYRINGE) IVP PRN ×2 (13:23→19:00)
[2017-03-08 16:34] VITALS: BP 128/70
[2017-03-08 19:56] VITALS: BP 132/73
[2017-03-08] MEDS: ALPRAZolam 0.25 MG (XANAX) TAB PO SCH (20:29)
[2017-03-08] MEDS: POTASSIUM CL 10MEQ/50ML IVPB 50 ML IV SCH (23:29)
[2017-03-08] MEDS: MAGNESIUM 1 GM/100 ML IVPB 100 ML IV SCH (23:30)
[2017-03-08] MEDS: KCL 20 MEQ TAB (K-DUR) PO SCH (23:30)
[2017-03-09] VITALS: BP 118/64
[2017-03-09] MEDS: inSUlin (REGULAR) HUMAN 1 UNIT/0.01 ML (CHARGE PER UNIT) SC SCH ×5 (00:04→20:57)
[2017-03-09] MEDS: methylPREDNISolone 40 MG/ML (Solu-MEDROL) VIAL IV SCH ×3 (00:15→11:37)
[2017-03-09] MEDS: RT-ALBUTEROL/IPRATROPIUM 3 ML (DUONEB) VIAL INH SCH ×6 (02:14→23:56)
[2017-03-09] MEDS: 1/2 NS W/KCL 20 MEQ/L 1,000 ML IV SCH ×2 (05:26→10:43)
[2017-03-09 05:59] LABS: BASOPHILS % (AUTO) 1 % (0-10); EOSINOPHILS % (AUTO) 0 % (0-10); HEMATOCRIT 34 % (40-54); HEMOGLOBIN 11.5 G/DL (13.3-17.7); LYMPHOCYTES % (AUTO) 18 % (12-44); MEAN CORPUSCULAR HEMOGLOBIN 33 PG (25-34); MEAN CORPUSCULAR HGB CONC 34 G/DL (32-36); MEAN CORPUSCULAR VOLUME 98 FL (80-99); MEAN PLATELET VOLUME 10.8 FL (7.4-10.4); MONOCYTES # (AUTO) 0.4 X 10^3 (0.0-1.0); MONOCYTES % (AUTO) 7 % (0-12); NEUTROPHILS # (AUTO) 3.8 X 10^3 (1.8-7.8); NEUTROPHILS % (AUTO) 74 % (42-75); PLATELET COUNT 218 10^3/uL (130-400); RED BLOOD COUNT 3.46 10^6/uL (4.35-5.85); RED CELL DISTRIBUTION WIDTH 13.6 % (10.0-14.5); WHITE BLOOD COUNT 5.2 10^3/uL (4.3-11.0)
[2017-03-09 06:10] LABS: ALANINE AMINOTRANSFERASE 77 U/L (0-55); ALBUMIN 3.3 GM/DL (3.2-4.5); ALKALINE PHOSPHATASE 58 U/L (40-136); BILIRUBIN,TOTAL 0.5 MG/DL (0.1-1.0); BUN/CREATININE RATIO 37; CALCIUM 8.6 MG/DL (8.5-10.1); CARBON DIOXIDE 26 MMOL/L (21-32); CHLORIDE 104 MMOL/L (98-107); CREATININE SERUM 0.76 MG/DL (0.60-1.30); GFR ESTIMATED > 60; GLUCOSE 139 MG/DL (70-105); MAGNESIUM 2.1 MG/DL (1.8-2.4); PHOSPHORUS 3.1 MG/DL (2.3-4.7); POTASSIUM 4.4 MMOL/L (3.6-5.0); SODIUM 141 MMOL/L (135-145)
[2017-03-09] MEDS: RT-ADVAIR HFA 115/21 MCG PER PUFF IH SCH ×2 (07:15→19:05)
[2017-03-09] MEDS ORDERED: TROUGH ORDER-PHARMACY XX NR (08:00)
[2017-03-09] MEDS: risperiDONE 1 MG (RisperDAL) TAB PO SCH ×2 (08:43→20:57)
[2017-03-09] MEDS: FAMOTIDINE 20MG/2ML IV (PEPCID) IVP SCH (08:43)
[2017-03-09] MEDS: VANCOMYCIN INJECTION 1,750 MG in NS IV 500 ML 500 ML IV SCH ×2 (08:43→20:58)
[2017-03-09] MEDS: buPROPion SR 150 MG (WELLBUTRIN SR) TAB PO SCH ×2 (08:44→20:57)
[2017-03-09] MEDS: ALPRAZolam 0.25 MG (XANAX) TAB PO SCH ×2 (08:44→20:57)
[2017-03-09] MEDS: NICOTINE 21 MG (NICODERM) PATCH TD SCH (08:44)
[2017-03-09] MEDS: LIDOCAINE (LIDODERM) 5% PATCH TOP SCH (08:44)
[2017-03-09] MEDS: DOCUSATE SODIUM 100 MG (COLACE) CAP PO SCH ×2 (08:50→20:57)
--- NOTE | 2017-03-09 12:43 | Progress Note-Hospitalist ---
Subjective HPI/CC On Admission Date Seen by Provider: Mar 09, 2017 Time Seen by Provider: 12:37 The patient is a 46-year-old white male who arrived at the emergency room late last evening by EMS. He apparently had been ill with upper respiratory symptoms for several days which included fever and cough. This has gotten progressively worse. On the date of admission he told the paramedics that he believes he was going to quit breathing he was noted to be febrile at 101.1 he stated that he seems to get pneumonia about once a year. He continues to smoke. His states that she is concerned on the basis of his snoring and irregular respiration during sleep that he has sleep apnea. Subsequently he continued to exhibits considerable difficulty in maintaining his SaO2 at a satisfactory level. He was assessed by Dr. Blackwell from pulmonary and was intubated and sedated and placed on the ventilator. Subjective/Events-last exam Pt reports getting some sleep last night. Up in chair and has been trying to stand throughout the day. Still feels very SOB with standing or talking despite talking in full sentences. Believes Xanax helped though. Objective Exam Vital Signs Vital Sign - Last 12Hours 03/03/17 03/04/17 21:47 00:20 Temp 101.5 Pulse 109 Resp 20 B/P (MAP) 98/45 (62) Pulse Ox 96 O2 Delivery Nasal Cannula O2 Flow Rate 4.00 FiO2 40 Capillary Refill : Less Than 3 Seconds General Appearance: No Apparent Distress, WD/WN, Anxious Respiratory: No Accessory Muscle Use, No Respiratory Distress, Rhonci Cardiovascular: Regular Rate, Rhythm, No Murmur Gastrointestinal: Normal Bowel Sounds, Non Tender, Soft Neurologic/Psychiatric: Alert, Oriented x3 Results/Procedures Lab Laboratory Tests 03/09/17 05:30 Assessment/Plan Assessment and Plan Assess & Plan/Chief Complaint CAP Diagnosis/Problems Diagnosis/Problems (1) CAP (community acquired pneumonia) Status: Acute Assessment & Plan: s/p extubation MRSA in sputum Continue in Vanc Pulm consulted, appreciate recs Start slow prednisone taper, DC Solu Medrol MAT protocol Qualifiers: (2) Anxiety Assessment & Plan: Profound anxiety Did not tolerate Ativan previously Apprehensive about started anxiety medicine even Agreeable to small dose of Xanax and believed it to help somewhat Will continue, plan for short term use only (3) Hyperglycemia Assessment & Plan: Likely steroid induced Continue to monitor (4) Microcytic anemia Assessment & Plan: Mild, stable Likely iatrogenic DON RICHTER MD Mar 09, 2017 12:43
[2017-03-09 17:24] VITALS: BP 120/70
[2017-03-10] MEDS: RT-ALBUTEROL/IPRATROPIUM 3 ML (DUONEB) VIAL INH PRN (00:36)
[2017-03-10 00:45] VITALS: BP 125/73
[2017-03-10] MEDS: inSUlin (REGULAR) HUMAN 1 UNIT/0.01 ML (CHARGE PER UNIT) SC SCH ×5 (01:01→18:40)
[2017-03-10] MEDS ORDERED: hydrOXYzine (VISTARIL) 25 MG CAP PO ONE (02:15)
[2017-03-10] MEDS: RT-ALBUTEROL/IPRATROPIUM 3 ML (DUONEB) VIAL INH SCH ×5 (02:56→21:55)
[2017-03-10 05:47] LABS: BASOPHILS % (AUTO) 0 % (0-10); EOSINOPHILS % (AUTO) 0 % (0-10); HEMATOCRIT 33 % (40-54); HEMOGLOBIN 11.1 G/DL (13.3-17.7); LYMPHOCYTES # (AUTO) 2.6 X 10^3 (1.0-4.0); LYMPHOCYTES % (AUTO) 28 % (12-44); MEAN CORPUSCULAR HEMOGLOBIN 33 PG (25-34); MEAN CORPUSCULAR HGB CONC 34 G/DL (32-36); MEAN CORPUSCULAR VOLUME 97 FL (80-99); MONOCYTES # (AUTO) 0.9 X 10^3 (0.0-1.0); MONOCYTES % (AUTO) 10 % (0-12); NEUTROPHILS # (AUTO) 5.7 X 10^3 (1.8-7.8); NEUTROPHILS % (AUTO) 62 % (42-75); PLATELET COUNT 226 10^3/uL (130-400); RED BLOOD COUNT 3.38 10^6/uL (4.35-5.85); RED CELL DISTRIBUTION WIDTH 12.8 % (10.0-14.5); WHITE BLOOD COUNT 9.3 10^3/uL (4.3-11.0)
[2017-03-10 06:06] LABS: ALANINE AMINOTRANSFERASE 64 U/L (0-55); ALBUMIN 2.9 GM/DL (3.2-4.5); ALKALINE PHOSPHATASE 63 U/L (40-136); BILIRUBIN,TOTAL 0.4 MG/DL (0.1-1.0); BUN/CREATININE RATIO 25; CALCIUM 8.1 MG/DL (8.5-10.1); CARBON DIOXIDE 28 MMOL/L (21-32); CHLORIDE 102 MMOL/L (98-107); GFR ESTIMATED > 60; GLUCOSE 104 MG/DL (70-105); MAGNESIUM 1.8 MG/DL (1.8-2.4); PHOSPHORUS 2.9 MG/DL (2.3-4.7); POTASSIUM 3.2 MMOL/L (3.6-5.0); SODIUM 140 MMOL/L (135-145); TOTAL PROTEIN 5.4 GM/DL (6.4-8.2)
[2017-03-10] MEDS: ADVAIR HFA 115/21 MCG INHALER 8 GM IH SCH ×2 (07:38→21:55)
[2017-03-10 08:00] VITALS: BP 125/75
[2017-03-10] MEDS: CALCIUM CARBONATE 500 MG (TUMS) TAB.CHEW PO PRN ×2 (08:01→21:24)
--- NOTE | 2017-03-10 08:07 | Pulmonary Progress Note ---
Subjective Time Seen by Provider: 08:06 Subjective/Events-last exam pt is doing better. Exam Exam Vital Signs Date Time Temp Pulse Resp B/P (MAP) Pulse Ox O2 Delivery O2 Flow Rate FiO2 03/10/17 07:43 4.00 03/10/17 07:37 90 Nasal Cannula 3.00 03/10/17 02:56 93 Nasal Cannula 3.00 03/10/17 00:45 99.1 88 24 125/73 (90) 93 Nasal Cannula 2.00 03/10/17 00:36 91 Nasal Cannula 3.00 03/09/17 21:00 Nasal Cannula 3.00 03/09/17 19:01 92 Nasal Cannula 3.00 03/09/17 17:24 97.5 84 16 120/70 (87) 93 Nasal Cannula 2.00 03/09/17 14:45 92 Nasal Cannula 3.00 03/09/17 11:09 93 Nasal Cannula 3.00 03/09/17 09:00 91 Nasal Cannula 3.00 I & O 03/10/17 07:00 Intake Total 2620 ml Output Total 3800 ml Balance -1180 ml General Appearance: No Apparent Distress, WD/WN, Anxious HEENT: Other (obese and with short neck) Neck: Normal Inspection Respiratory: No Accessory Muscle Use, No Respiratory Distress, Rhonci Cardiovascular: Regular Rate, Rhythm, No Murmur Capillary Refill: Less Than 3 Seconds Gastrointestinal: normal bowel sounds, non tender, soft Extremity: Normal Capillary Refill, Normal Inspection, Normal Range of Motion, Non Tender, No Calf Tenderness, No Pedal Edema Neurologic/Psychiatric: Alert, Oriented x3 Skin: Normal Color, Warm/Dry Lymphatic: No Adenopathy Results Lab Laboratory Tests 03/09/17 05:30 03/10/17 05:15 Assessment/Plan Assessment/Plan Pneumonia with sepsis with MRSA -Continue Vanco Acute respiratory failure - failing BiPAP therapy -prednisone taper -SVNs Depression/anxiety -Increase activity -Pt/OT Weakness/debility -PT/OT Tobacco use -education -Check PFT as out patient Obesity with probable JOYCELYN -PT will need out patient PSG and work up increase activity, pT/OT, check oxygen desat test. 232 Clinical Quality Measures DVT/VTE Risk/Contraindication: Risk Factor Score Per Nursin RFS Level Per Nursing on Admit: 3=High TEJA ADAMS DO Mar 10, 2017 08:06
--- NOTE | 2017-03-10 09:57 | Physical Therapy Daily Note ---
PT Daily Note-Current Subjective Patient agrees to PT. No c/o. Pain Numeric Pain Scale: 0-No Pain Location: No Pain Reported Mental Status Patient Orientation: Normal For Age Attachments: Oxygen (3L) Transfers Functional [place] Measure 0=Not Assessed/NA 4=Minimal Assistance 1=Total Assistance 5=Supervision or Setup 2=Maximal Assistance 6=Modified [place] 3=Moderate Assistance 7=Complete IndependenceIRFPAI Quality Coding Scale 6 Independent with activity with or without an assistive device 5 Patient requires set up or clean up by helper. Patient completes activity by themselves 4 Supervision or touching assist (CGA). [place] provide cues , steadying assist 3 The helper provides less than half the effort to complete the activity 2 The helper provides more than half the effort to complete the activity 1 Dependent. The helper does all the effort to complete an activity 7 Patient refused to complete or attempt activity 9 The patient did not perform the activity before the current illness or injury 88 Not attempted due to Medical conditions or safety concerns Transfers (B, C, W/C) (FIM): 7 Scootin Sit to/from Stand: 7 Weight Bearing Right Lower Extremity: Right Full Weight Bearing Left Lower Extremity: Left Full Weight Bearing Gait Training Gait (FIM): 6 Distance (FIM): 3=150 ft Distance: 250' Gait Level of Assist: 6 Gait Assistive Device: FWW slow, functional; PT assist for O2 tank only Assessment PT instructed patient to ambulate PRN in hallway and in room. Patient much improved with gross motor skills and pulmonary function. PT Teletype Clerk Goals Assisted Goals PT Teletype Clerk Goals Time Frame: Mar 12, 2017 Transfers (B,C,W/C) (FIM): 7 Gait (FIM): 7 Gait distance (FIM): 3=150 ft Distance: 300' Gait Level of Assist: 7 PT Plan Treatment/Plan Treatment Plan: Continue Plan of Care Treatment Plan: Bed Mobility, Education, Functional Activity Alexandrea, Functional Strength, Gait, Safety, Therapeutic Exercise, Transfers Treatment Duration: Mar 12, 2017 Frequency: 6 times per week Estimated Hrs Per Day: .25 hour per day Patient and/or Family Agrees t: Yes Time/GCodes Time In: 912 Time Out: 922 Total Billed Treatment Time: 10 Total Billed Treatment 1 visit FA 10 min WESTON TARIQ PT Mar 10, 2017 09:57
[2017-03-10] MEDS: VANCOMYCIN INJECTION 1,750 MG in NS IV 500 ML 500 ML IV SCH ×2 (10:00→21:23)
[2017-03-10] MEDS: risperiDONE 1 MG (RisperDAL) TAB PO SCH ×2 (10:01→21:24)
[2017-03-10] MEDS: ALPRAZolam 0.25 MG (XANAX) TAB PO SCH ×2 (10:01→21:23)
[2017-03-10] MEDS: buPROPion SR 150 MG (WELLBUTRIN SR) TAB PO SCH ×2 (10:01→21:23)
[2017-03-10] MEDS: hydrOXYzine (ATARAX) 10 MG TAB PO PRN ×2 (10:01→21:24)
[2017-03-10] MEDS: LIDOCAINE (LIDODERM) 5% PATCH TOP SCH (10:02)
[2017-03-10] MEDS: predniSONE 10 MG TAB PO SCH (10:02)
[2017-03-10] MEDS: DOCUSATE SODIUM 100 MG (COLACE) CAP PO SCH ×2 (10:02→22:18)
[2017-03-10] MEDS: NICOTINE 21 MG (NICODERM) PATCH TD SCH (10:02)
[2017-03-10] MEDS: FAMOTIDINE 20 MG (PEPCID) TABLET PO SCH ×2 (10:02→21:23)
[2017-03-10 11:44] VITALS: BP 125/75
[2017-03-10] MEDS ORDERED: KCL 20 MEQ TAB (K-DUR) PO NR (12:30)
--- NOTE | 2017-03-10 12:31 | Progress Note-Hospitalist ---
Subjective HPI/CC On Admission Date Seen by Provider: Mar 10, 2017 Time Seen by Provider: 09:40 The patient is a 46-year-old white male who arrived at the emergency room late last evening by EMS. He apparently had been ill with upper respiratory symptoms for several days which included fever and cough. This has gotten progressively worse. On the date of admission he told the paramedics that he believes he was going to quit breathing he was noted to be febrile at 101.1 he stated that he seems to get pneumonia about once a year. He continues to smoke. His states that she is concerned on the basis of his snoring and irregular respiration during sleep that he has sleep apnea. Subsequently he continued to exhibits considerable difficulty in maintaining his SaO2 at a satisfactory level. He was assessed by Dr. Blackwell from pulmonary and was intubated and sedated and placed on the ventilator. Subjective/Events-last exam Pt reports doing well. Slept for 3-4 hours last night after hydroxyzine. Did have some heartburn but otherwise doing well. Objective Exam Vital Signs Vital Sign - Last 12Hours 03/04/17 03/04/17 03/04/17 00:00 00:20 07:00 Temp 100.0 Pulse 109 Resp 9 B/P (MAP) 122/69 (86) Pulse Ox 97 O2 Delivery Vapotherm O2 Flow Rate 40.00 24.00 FiO2 40 Capillary Refill : Less Than 3 Seconds General Appearance: No Apparent Distress, WD/WN, Anxious Respiratory: Lungs Clear, No Accessory Muscle Use, No Respiratory Distress Cardiovascular: Regular Rate, Rhythm, No Murmur Neurologic/Psychiatric: Alert, Oriented x3 Results/Procedures Lab Laboratory Tests 03/10/17 05:15 Assessment/Plan Assessment and Plan Assess & Plan/Chief Complaint CAP Diagnosis/Problems Diagnosis/Problems (1) CAP (community acquired pneumonia) Status: Acute Assessment & Plan: s/p extubation MRSA in sputum Continue in Vanc Day #5 Likely will need Linezolid at [place] Pulm consulted, appreciate recs Prednisone Taper MAT protocol Qualifiers: (2) Anxiety Assessment & Plan: Profound anxiety Did not tolerate Ativan previously Apprehensive about starting anxiety medicine even Agreeable to small dose of Xanax and believed it to help somewhat Will continue, plan for short term use only Also benefited from Hydroxyzine last night, will continue prn use (3) Hyperglycemia Assessment & Plan: Likely steroid induced Continue to monitor Improving now that he is off IV steroids (4) Microcytic anemia Assessment & Plan: Mild, stable Likely iatrogenic DON RICHTER MD Mar 10, 2017 12:31
--- NOTE | 2017-03-10 12:34 | Occ Therapy Progress Note ---
Therapy Progress Note Pt declined participating in therapy. Pt stated that he had just eaten and was tired and wanted to take a nap and that he had already walked around today. GREENBERG explained what OT was and what he would be working on. Pt then said that other lady showed him how to do UE exercise then pt demonstrated. Pt reiterated that he was tired. 1 visit: [id number] KATIE ANDERSON Mar 10, 2017 12:34
[2017-03-10 16:00] VITALS: BP 116/74
[2017-03-11 00:06] VITALS: BP 118/68
[2017-03-11] MEDS: inSUlin (REGULAR) HUMAN 1 UNIT/0.01 ML (CHARGE PER UNIT) SC SCH ×3 (00:33→13:40)
[2017-03-11] MEDS: RT-ALBUTEROL/IPRATROPIUM 3 ML (DUONEB) VIAL INH SCH ×7 (02:17→22:50)
[2017-03-11 06:48] LABS: BASOPHILS % (AUTO) 0 % (0-10); EOSINOPHILS # (AUTO) 0.1 10^3/uL (0.0-0.3); EOSINOPHILS % (AUTO) 1 % (0-10); HEMATOCRIT 35 % (40-54); HEMOGLOBIN 11.8 G/DL (13.3-17.7); LYMPHOCYTES # (AUTO) 2.4 X 10^3 (1.0-4.0); LYMPHOCYTES % (AUTO) 24 % (12-44); MEAN CORPUSCULAR HEMOGLOBIN 33 PG (25-34); MEAN CORPUSCULAR HGB CONC 34 G/DL (32-36); MEAN CORPUSCULAR VOLUME 96 FL (80-99); MEAN PLATELET VOLUME 10.6 FL (7.4-10.4); MONOCYTES # (AUTO) 0.6 X 10^3 (0.0-1.0); MONOCYTES % (AUTO) 6 % (0-12); NEUTROPHILS # (AUTO) 6.9 X 10^3 (1.8-7.8); NEUTROPHILS % (AUTO) 69 % (42-75); PLATELET COUNT 244 10^3/uL (130-400); RED BLOOD COUNT 3.62 10^6/uL (4.35-5.85); RED CELL DISTRIBUTION WIDTH 12.8 % (10.0-14.5); WHITE BLOOD COUNT 10.1 10^3/uL (4.3-11.0)
[2017-03-11 07:02] LABS: ALANINE AMINOTRANSFERASE 61 U/L (0-55); ALBUMIN 3.1 GM/DL (3.2-4.5); ALKALINE PHOSPHATASE 66 U/L (40-136); BILIRUBIN,TOTAL 0.6 MG/DL (0.1-1.0); BUN/CREATININE RATIO 24; CALCIUM 8.6 MG/DL (8.5-10.1); CARBON DIOXIDE 28 MMOL/L (21-32); CHLORIDE 102 MMOL/L (98-107); CREATININE SERUM 0.82 MG/DL (0.60-1.30); GFR ESTIMATED > 60; GLUCOSE 98 MG/DL (70-105); MAGNESIUM 1.8 MG/DL (1.8-2.4); PHOSPHORUS 3.2 MG/DL (2.3-4.7); POTASSIUM 3.6 MMOL/L (3.6-5.0); SODIUM 141 MMOL/L (135-145); TOTAL PROTEIN 5.7 GM/DL (6.4-8.2)
--- NOTE | 2017-03-11 07:18 | Pulmonary Progress Note ---
Subjective Time Seen by Provider: 07:31 Subjective/Events-last exam Pt is very wheezy this AM with increased SOB and WOB. Exam Exam Vital Signs Date Time Temp Pulse Resp B/P (MAP) Pulse Ox O2 Delivery O2 Flow Rate FiO2 03/11/17 02:17 94 Nasal Cannula 4.00 03/11/17 00:06 98.8 79 17 118/68 (85) 97 Nasal Cannula 2.00 03/10/17 21:55 94 Nasal Cannula 4.00 03/10/17 21:00 Nasal Cannula 4.00 03/10/17 16:00 98.8 104 18 116/74 (88) 94 Nasal Cannula 2.00 03/10/17 11:44 93 87 03/10/17 11:44 87 Room Air 03/10/17 09:00 Nasal Cannula 4.00 03/10/17 08:00 97.9 86 20 125/75 (92) 95 Nasal Cannula 2.00 03/10/17 07:43 4.00 03/10/17 07:37 90 Nasal Cannula 3.00 I & O 03/11/17 07:00 Intake Total 1900 ml Output Total 1250 ml Balance 650 ml General Appearance: WD/WN, Anxious, Moderate Distress HEENT: Other Neck: Normal Inspection Respiratory: Accessory Muscle Use, Decreased Breath Sounds, Respiratory Distress, Wheezing Cardiovascular: Regular Rate, Rhythm, No Murmur, Tachycardia Capillary Refill: Less Than 3 Seconds Gastrointestinal: normal bowel sounds, non tender, soft Extremity: Normal Capillary Refill, Normal Inspection, Normal Range of Motion, Non Tender, No Calf Tenderness, No Pedal Edema Neurologic/Psychiatric: Alert, Oriented x3 Skin: Normal Color, Warm/Dry Lymphatic: No Adenopathy Results Lab Laboratory Tests 03/10/17 05:15 03/11/17 06:31 Assessment/Plan Assessment/Plan Acute respiratory distress this AM -Sp02 88% on oxygen -Oxygen increased. Pneumonia with acute bronchitis -Increase SVNs to Q 4 and Q2 PRN - Vanco -PRednisone taper -Check PA/LAT CXR Depression/anxiety -Increase activity -Pt/OT Weakness/debility -PT/OT Tobacco use r/o COPD -education -Check PFT as out patient Obesity with probable JOYCELYN -PT will need out patient PSG and work up increase activity, pT/OT 233 Clinical Quality Measures DVT/VTE Risk/Contraindication: Risk Factor Score Per Nursin RFS Level Per Nursing on Admit: 3=High TEJA ADAMS DO Mar 11, 2017 07:18
[2017-03-11] MEDS: ADVAIR HFA 115/21 MCG INHALER 8 GM IH SCH (07:42)
[2017-03-11] MEDS ORDERED: RT-ALBUTEROL SULF 2.5 MG/3 ML PRE-MIX VIAL ONE (07:57)
[2017-03-11 08:00] VITALS: BP 122/59
[2017-03-11] MEDS: ALPRAZolam 0.25 MG (XANAX) TAB PO SCH ×2 (08:26→19:15)
[2017-03-11] MEDS: VANCOMYCIN INJECTION 1,750 MG in NS IV 500 ML 500 ML IV SCH ×2 (09:07→20:04)
[2017-03-11] MEDS: buPROPion SR 150 MG (WELLBUTRIN SR) TAB PO SCH ×2 (09:08→20:04)
[2017-03-11] MEDS: predniSONE 10 MG TAB PO SCH (09:08)
[2017-03-11] MEDS: FAMOTIDINE 20 MG (PEPCID) TABLET PO SCH ×2 (09:08→20:04)
[2017-03-11] MEDS: risperiDONE 1 MG (RisperDAL) TAB PO SCH ×2 (09:09→20:04)
[2017-03-11] MEDS: NICOTINE 21 MG (NICODERM) PATCH TD SCH (09:09)
[2017-03-11] MEDS: DOCUSATE SODIUM 100 MG (COLACE) CAP PO SCH ×2 (09:09→20:04)
[2017-03-11] MEDS: LIDOCAINE (LIDODERM) 5% PATCH TOP SCH (09:09)
--- NOTE | 2017-03-11 09:16 | Diagnostic Imaging Report ---
INDICATION: Shortness of air and followup pneumonia. TIME OF EXAM: 9:05 AM. COMPARISON: 03/07/2017. FINDINGS: The heart size is stable. The right IJ line has been removed. There has been some developing infiltrate or atelectasis in the right base. Otherwise, the lungs are clear. No effusion or pneumothorax is seen. IMPRESSION: Increasing right basilar infiltrate or atelectasis since the examination from 4 days earlier. Dictated by: Dictated on workstation # [id number]
[2017-03-11] MEDS ORDERED: ENOXAPARIN 100 MG/1 ML (LOVENOX) SYR SC ONE (09:30)
--- NOTE | 2017-03-11 10:30 | Physical Therapy Daily Note ---
PT Daily Note-Current Subjective Patient agrees to PT. He reports he had an "episode" this morning where he could not breathe. RN present to confirm. Patient is currently on 10L O2 HF NC Pain Numeric Pain Scale: 0-No Pain Location: No Pain Reported Mental Status Patient Orientation: Normal For Age Attachments: Oxygen Transfers Functional [place] Measure 0=Not Assessed/NA 4=Minimal Assistance 1=Total Assistance 5=Supervision or Setup 2=Maximal Assistance 6=Modified [place] 3=Moderate Assistance 7=Complete IndependenceIRFPAI Quality Coding Scale 6 Independent with activity with or without an assistive device 5 Patient requires set up or clean up by helper. Patient completes activity by themselves 4 Supervision or touching assist (CGA). [place] provide cues , steadying assist 3 The helper provides less than half the effort to complete the activity 2 The helper provides more than half the effort to complete the activity 1 Dependent. The helper does all the effort to complete an activity 7 Patient refused to complete or attempt activity 9 The patient did not perform the activity before the current illness or injury 88 Not attempted due to Medical conditions or safety concerns Transfers (B, C, W/C) (FIM): 7 Scootin Sit to/from Stand: 7 Weight Bearing Right Lower Extremity: Right Full Weight Bearing Left Lower Extremity: Left Full Weight Bearing Gait Training Gait (FIM): 6 Distance (FIM): 3=150 ft Distance: 175' Gait Level of Assist: 6 Gait Assistive Device: FWW very slow with frequent standing recovery periods due to SOA with good recovery. Assessment Education with patient on pursed lip breathing techniques to slow respirations given. Patient appears to have increased anxiety due to SOA. PT Penitentiary Goals Penitentiary Goals PT Penitentiary Goals Time Frame: Mar 19, 2017 Transfers (B,C,W/C) (FIM): 7 Gait (FIM): 7 Gait distance (FIM): 3=150 ft Distance: 300' Gait Level of Assist: 7 PT Plan Treatment/Plan Treatment Plan: Continue Plan of Care, Modify Plan, see comments (increase duration) Treatment Plan: Bed Mobility, Education, Functional Activity Alexandrea, Functional Strength, Gait, Safety, Therapeutic Exercise, Transfers Treatment Duration: Mar 19, 2017 Frequency: 6 times per week Estimated Hrs Per Day: .25 hour per day Patient and/or Family Agrees t: Yes Time/GCodes Time In: 1008 Time Out: 1020 Total Billed Treatment Time: 12 Total Billed Treatment 1 visit FA 12 min WESTON TARIQ PT Mar 11, 2017 10:30
[2017-03-11] MEDS: IBUPROFEN 600 MG (MOTRIN) TAB PO PRN (11:26)
--- NOTE | 2017-03-11 11:27 | Occupational Ther Daily Note ---
OT Current Status-Daily Note Subjective Pt sitting on EOB. No c/o pain. Pt was encouraged to participate in therapy. Pt stated that he had an attack early this morning and wasn't able to leave today. Mental Status/Objective Patient Orientation: Person, Place, Time, Situation Functional [place] Measure 0=Not Assessed/NA 4=Minimal Assistance 1=Total Assistance 5=Supervision or Setup 2=Maximal Assistance 6=Modified [place] 3=Moderate Assistance 7=Complete [place] ADL-Treatment Pt declined shower or washing up this morning. Other Treatment Pt completed breathing exercises with UE exercises to work on slowing breaths down and taking deep breaths. Then discussed energy conservation techniques and different situations. After therapy, pt sitting on EOB with call light/ phone in reach. All needs met in room. OT Short Term Goals Short Term Goals 1=Demonstrate adherence to instructed precautions during ADL tasks. 2=Patient will verbalize/demonstrate understanding of assistive devices/ modifications for ADL. 3=Patient will improve strength/tolerance for activity to enable patient to perform ADL's. OT Snf Goals Snf Goals Time Frame: Mar 14, 2017 Eating (FIM): 7 Grooming(FIM): 6 Bathing(FIM): 6 Upper Body Dressing(FIM): 6 Lower Body Dressing(FIM): 6 Toileting(FIM): 6 Toilet/Commode Transfer(FIM): 6 Shower Transfer(FIM): 6 Additional Goals: 2-Verbalize Understanding, 3-ImproveStrength/Alexandrea 1=Demonstrate adherence to instructed precautions during ADL tasks. 2=Patient will verbalize/demonstrate understanding of assistive devices/ modifications for ADL. 3=Patient will improve strength/tolerance for activity to enable patient to perform ADL's. OT Education/Plan Problem List/Assessment Pt would benefit from skilled OT to increase his independence in basic self care and to decrease caregiver burden. Discharge Recommendations Plan/Recommendations: Continue POC Treatment Plan/Plan of Care Patient would benefit from OT for education, treatment and training to promote independence in ADL's, mobility, safety and/or upper extremity function for ADL' s. Plan of Care: ADL Retraining, Functional Mobility, UE Funct Exercise/Act Treatment Duration: Mar 14, 2017 Frequency: 5 times per week Estimated Hrs Per Day: .5 hour per day (.25 to .5) Agreement: Yes Rehab Potential: Good Time/GCodes Start Time: 11:05 Stop Time: 11:23 Total Time Billed (hr/min): 18 Billed Treatment Time 1 visit-FA 1 (18 min) KATIE ANDERSON Mar 11, 2017 11:27
[2017-03-11] MEDS ORDERED: IOHEXOL 350 MG/ML 150 ML (OMNIPAQUE 350) VIAL IV ONE (11:30)
[2017-03-11] MEDS ORDERED: NS 100 ML (IVPB) BAG IV ONE (11:30)
--- NOTE | 2017-03-11 12:47 | Progress Note-Hospitalist ---
Subjective HPI/CC On Admission Date Seen by Provider: Mar 11, 2017 Time Seen by Provider: 09:00 The patient is a 46-year-old white male who arrived at the emergency room late last evening by EMS. He apparently had been ill with upper respiratory symptoms for several days which included fever and cough. This has gotten progressively worse. On the date of admission he told the paramedics that he believes he was going to quit breathing he was noted to be febrile at 101.1 he stated that he seems to get pneumonia about once a year. He continues to smoke. His states that she is concerned on the basis of his snoring and irregular respiration during sleep that he has sleep apnea. Subsequently he continued to exhibits considerable difficulty in maintaining his SaO2 at a satisfactory level. He was assessed by Dr. Blackwell from pulmonary and was intubated and sedated and placed on the ventilator. Subjective/Events-last exam Pt reported feeling more short of breath this AM. Needed increasing oxygen (up to 10lpm) to maintain oxygen above 90. Objective Exam Vital Signs Vital Sign - Last 12Hours 03/05/17 03/05/17 00:00 00:52 Temp 98.4 Pulse 92 Resp 24 B/P (MAP) 110/59 (76) Pulse Ox 92 O2 Delivery Mechanical Ventilator O2 Flow Rate 30.00 FiO2 93 Capillary Refill : Less Than 3 Seconds General Appearance: WD/WN, Anxious Respiratory: Lungs Clear, No Accessory Muscle Use Cardiovascular: Regular Rate, Rhythm, No Murmur Gastrointestinal: Normal Bowel Sounds, Non Tender, Soft Neurologic/Psychiatric: Alert, Oriented x3 Results/Procedures Lab Laboratory Tests 03/11/17 06:31 Assessment/Plan Assessment and Plan Assess & Plan/Chief Complaint CAP Diagnosis/Problems Diagnosis/Problems (1) CAP (community acquired pneumonia) Status: Acute Assessment & Plan: s/p extubation MRSA in sputum Continue in Vanc Day #6 Pulm consulted, appreciate recs Prednisone Taper MAT protocol Given worsening dyspnea will get CTA to evaluated for underlying PE Qualifiers: (2) Anxiety Assessment & Plan: Profound anxiety Did not tolerate Ativan previously Apprehensive about starting anxiety medicine even Agreeable to small dose of Xanax and believed it to help somewhat Will continue, plan for short term use only Continue Hydroxyzine (3) Hyperglycemia Assessment & Plan: Likely steroid induced Continue to monitor Improving now that he is off IV steroids (4) Microcytic anemia Assessment & Plan: Mild, stable Likely iatrogenic DON RICHTER MD Mar 11, 2017 12:47
--- NOTE | 2017-03-11 16:13 | Diagnostic Imaging Report ---
PROCEDURE: CT angiography of the chest with contrast. TECHNIQUE: Multiple contiguous axial images were obtained through the chest after uneventful bolus administration of intravenous contrast. Reconstructed CTA MIP acquisitions were also performed. INDICATION: Pneumonia, shortness of air. CORRELATION STUDY: None. FINDINGS: Heart size is borderline enlarged. No disproportionate cardiac chamber enlargement. Thoracic aorta is unremarkable. There is what appears to be slight asymmetric aortic valvular calcification along its left aspect. The pulmonary arteries demonstrate no filling defect to reflect pulmonary embolism. A few prominent mediastinal and particularly subcarinal lymphadenopathy is noted. There is rather extensive airspace disease throughout the large portion of the right lower lobe, slightly nodular in appearance. There are also minimal areas of airspace disease involving the right middle lobe as well as throughout the right upper lobe. Mild airspace disease with nodularity about the left lower lobe. There are asymmetric groundglass opacities of the upper lobe distributions, left greater than right. Trace pleural effusions. Trace pericardial effusion. Visualized portions of the upper abdomen with changes of hepatic steatosis. Probable small splenule anterior to the spleen. IMPRESSION: 1. No CT evidence for pulmonary embolism. 2. Rather extensive multifocal airspace disease, most severe involving the right lower lobe. Also, some involvement of the remaining lung segments with slightly more atypical groundglass opacities of the upper lobes. Given the nodular appearance, atypical-type pneumonitis could give this appearance as well. Followup imaging until complete resolution is recommended. 3. Likely reactive lymphadenopathy, most pronounced in the subcarinal region. Dictated by: Dictated on workstation # [id number]
[2017-03-11 16:26] VITALS: BP 117/57
[2017-03-11] MEDS: CALCIUM CARBONATE 500 MG (TUMS) TAB.CHEW PO PRN (16:43)
[2017-03-11] MEDS ORDERED: RT-ADVAIR HFA 115/21 MCG PER PUFF IH ONE (18:49)
[2017-03-11] MEDS: hydrOXYzine (ATARAX) 10 MG TAB PO PRN (20:04)
[2017-03-11 20:19] VITALS: BP 121/56
[2017-03-12] MEDS: IBUPROFEN 600 MG (MOTRIN) TAB PO PRN ×2 (00:21→14:16)
[2017-03-12] MEDS: ACETAMINOPHEN 325 MG TABLET/CAPLET (TYLENOL) PO PRN ×2 (02:34→19:01)
[2017-03-12] MEDS: RT-ALBUTEROL/IPRATROPIUM 3 ML (DUONEB) VIAL INH SCH ×6 (02:47→21:56)
--- NOTE | 2017-03-12 05:39 | Pulmonary Progress Note ---
Subjective Time Seen by Provider: 05:40 Subjective/Events-last exam Pt started spiking fever last night. Exam Exam Vital Signs Date Time Temp Pulse Resp B/P (MAP) Pulse Ox O2 Delivery O2 Flow Rate FiO2 03/12/17 05:01 99.3 03/12/17 02:47 95 High Flow N/C 8.00 03/12/17 02:34 99.5 03/12/17 02:32 99.5 98 High Flow N/C 8.00 03/12/17 01:24 101.3 96 High Flow N/C 8.00 03/12/17 00:21 101.0 94 High Flow N/C 8.00 03/11/17 22:50 93 High Flow N/C 8.00 03/11/17 21:00 High Flow N/C 10.00 03/11/17 20:19 99.5 104 22 121/56 (77) 92 High Flow N/C 8.00 03/11/17 18:59 High Flow N/C 8.00 03/11/17 18:53 97 High Flow N/C 10.00 03/11/17 16:26 98.8 91 20 117/57 (77) 96 High Flow N/C 10.00 03/11/17 12:04 96 Nasal Cannula 10.00 03/11/17 09:00 90 High Flow N/C 10.00 03/11/17 08:00 100.1 99 16 122/59 (80) 90 High Flow N/C 10.00 03/11/17 07:35 90 High Flow N/C 10.00 I & O 03/12/17 07:00 Intake Total 2250 ml Output Total 950 ml Balance 1300 ml General Appearance: WD/WN, Anxious, Mild Distress HEENT: Other Neck: Normal Inspection Respiratory: No Accessory Muscle Use, Decreased Breath Sounds, Wheezing Cardiovascular: Regular Rate, Rhythm, No Murmur Capillary Refill: Less Than 3 Seconds Gastrointestinal: normal bowel sounds, non tender, soft Extremity: Normal Capillary Refill, Normal Inspection, Normal Range of Motion, Non Tender, No Calf Tenderness, No Pedal Edema Neurologic/Psychiatric: Alert, Oriented x3 Skin: Normal Color, Warm/Dry Lymphatic: No Adenopathy Results Lab Laboratory Tests 03/11/17 06:31 Assessment/Plan Assessment/Plan Acute respiratory distress this AM -CT scan reviewed shows bilateral atypical pneumonia. CXR from yesterday also appears worse. Cultures have only shown MRSA. Pt still continues to spike fever with TM of 101.3. -Will repan culture including influenza and restart Zosyn -Repeat Labs Pneumonia with acute bronchitis -Increase SVNs to Q 4 and Q2 PRN - Vanco -PRednisone taper -Check PA/LAT CXR Depression/anxiety -Increase activity -Pt/OT Weakness/debility -PT/OT Tobacco use r/o COPD -education -Check PFT as out patient Obesity with probable JOYCELYN -PT will need out patient PSG and work up increase activity, pT/OT 233 Clinical Quality Measures DVT/VTE Risk/Contraindication: Risk Factor Score Per Nursin RFS Level Per Nursing on Admit: 3=High TEJA ADAMS DO Mar 12, 2017 05:39
[2017-03-12 06:10] LABS: BASOPHILS % (AUTO) 0 % (0-10); EOSINOPHILS # (AUTO) 0.1 10^3/uL (0.0-0.3); EOSINOPHILS % (AUTO) 1 % (0-10); HEMATOCRIT 33 % (40-54); HEMOGLOBIN 11.2 G/DL (13.3-17.7); LYMPHOCYTES # (AUTO) 1.7 X 10^3 (1.0-4.0); LYMPHOCYTES % (AUTO) 18 % (12-44); MEAN CORPUSCULAR HEMOGLOBIN 33 PG (25-34); MEAN CORPUSCULAR HGB CONC 34 G/DL (32-36); MEAN CORPUSCULAR VOLUME 97 FL (80-99); MEAN PLATELET VOLUME 11.2 FL (7.4-10.4); MONOCYTES # (AUTO) 0.8 X 10^3 (0.0-1.0); MONOCYTES % (AUTO) 8 % (0-12); NEUTROPHILS % (AUTO) 73 % (42-75); PLATELET COUNT 239 10^3/uL (130-400); RED BLOOD COUNT 3.41 10^6/uL (4.35-5.85); RED CELL DISTRIBUTION WIDTH 13.2 % (10.0-14.5); WHITE BLOOD COUNT 9.7 10^3/uL (4.3-11.0)
[2017-03-12 06:40] LABS: ALANINE AMINOTRANSFERASE 48 U/L (0-55); ALBUMIN 3.2 GM/DL (3.2-4.5); ALKALINE PHOSPHATASE 63 U/L (40-136); BILIRUBIN,TOTAL 0.8 MG/DL (0.1-1.0); BUN/CREATININE RATIO 17; CALCIUM 9.1 MG/DL (8.5-10.1); CARBON DIOXIDE 28 MMOL/L (21-32); CHLORIDE 101 MMOL/L (98-107); CREATININE SERUM 0.94 MG/DL (0.60-1.30); GFR ESTIMATED > 60; GLUCOSE 102 MG/DL (70-105); MAGNESIUM 1.9 MG/DL (1.8-2.4); PHOSPHORUS 3.8 MG/DL (2.3-4.7); POTASSIUM 3.5 MMOL/L (3.6-5.0); SODIUM 139 MMOL/L (135-145); TOTAL PROTEIN 6.1 GM/DL (6.4-8.2)
[2017-03-12] MEDS: ADVAIR HFA 115/21 MCG INHALER 8 GM IH SCH ×2 (06:41→18:24)
[2017-03-12] MEDS: PIPERACILLIN SODIUM/TAZOBACTAM 4.5 GM in D5W 100 ML IVPB 100 ML IV SCH ×4 (07:14→23:28)
[2017-03-12 08:00] VITALS: BP 104/56
[2017-03-12] MEDS ORDERED: KCL 20 MEQ TAB (K-DUR) PO NR (08:00)
[2017-03-12] MEDS: risperiDONE 1 MG (RisperDAL) TAB PO SCH ×2 (08:57→20:53)
[2017-03-12] MEDS: predniSONE 10 MG TAB PO SCH (08:58)
[2017-03-12] MEDS: buPROPion SR 150 MG (WELLBUTRIN SR) TAB PO SCH ×2 (08:59→20:53)
[2017-03-12] MEDS: DOCUSATE SODIUM 100 MG (COLACE) CAP PO SCH ×2 (08:59→20:53)
[2017-03-12] MEDS: ALPRAZolam 0.25 MG (XANAX) TAB PO SCH ×2 (08:59→20:53)
[2017-03-12] MEDS: NICOTINE 21 MG (NICODERM) PATCH TD SCH (08:59)
[2017-03-12] MEDS: FAMOTIDINE 20 MG (PEPCID) TABLET PO SCH ×2 (08:59→20:53)
[2017-03-12] MEDS: LIDOCAINE (LIDODERM) 5% PATCH TOP SCH (09:00)
[2017-03-12] MEDS: VANCOMYCIN INJECTION 1,750 MG in NS IV 500 ML 500 ML IV SCH ×2 (09:02→20:54)
--- NOTE | 2017-03-12 10:03 | Physical Therapy Daily Note ---
PT Daily Note-Current Subjective Pt sitting in recliner with Nurse taking vitals upon arrival. Pt uses restroom before PT arrives and is returning to recliner to catch breath. Pt agrees to PT for walk. Pain Location: No Pain Reported Mental Status Patient Orientation: Person, Place, Time, Situation Attachments: Oxygen (6L), IV Transfers Functional [place] Measure 0=Not Assessed/NA 4=Minimal Assistance 1=Total Assistance 5=Supervision or Setup 2=Maximal Assistance 6=Modified [place] 3=Moderate Assistance 7=Complete IndependenceIRFPAI Quality Coding Scale 6 Independent with activity with or without an assistive device 5 Patient requires set up or clean up by helper. Patient completes activity by themselves 4 Supervision or touching assist (CGA). [place] provide cues , steadying assist 3 The helper provides less than half the effort to complete the activity 2 The helper provides more than half the effort to complete the activity 1 Dependent. The helper does all the effort to complete an activity 7 Patient refused to complete or attempt activity 9 The patient did not perform the activity before the current illness or injury 88 Not attempted due to Medical conditions or safety concerns Scootin Sit to/from Stand: 5 Weight Bearing Right Lower Extremity: Right Full Weight Bearing Left Lower Extremity: Left Full Weight Bearing Gait Training Distance (FIM): 3=150 ft Distance: 175' Gait Level of Assist: 5 Gait Persons Needed: 1 Gait Assistive Device: None Pt uses IV pole to help steady himself. Pt's bishop is slow but steady, no LOB. Pt fatigues easy and needs rest breaks both standing and sitting upon return to room. Treatments Pt transfers from recliner to standing using IV pole to steady at SBA. Pt ambulates in hallway using IV pole to steady at SBA. Pt returns to rest in recliner and ENROLLMENT CONSULTANT gives pt ed over need for deep breathing and use of Spirometer to help with pneumonia. Pt gives recent history over changes including spike in temp and SOA. Pt resting in recliner with all needs met at end of tx. Assessment Current Status: Good Progress Pt reports feeling better today. Pt is pushing himself while still listening to body cues to not overextend himself while ambulating. PT Fpc Goals Fpc Goals PT Fpc Goals Time Frame: Mar 19, 2017 Transfers (B,C,W/C) (FIM): 7 Gait (FIM): 7 Gait distance (FIM): 3=150 ft Distance: 300' Gait Level of Assist: 7 PT Plan Problem List Problem List: Activity Tolerance, Functional Strength, Safety, Balance, Gait Treatment/Plan Treatment Plan: Continue Plan of Care Treatment Plan: Bed Mobility, Education, Functional Activity Alexandrea, Functional Strength, Gait, Safety, Therapeutic Exercise, Transfers Treatment Duration: Mar 19, 2017 Frequency: 6 times per week Estimated Hrs Per Day: .25 hour per day Patient and/or Family Agrees t: Yes Safety Risks/Education Patient Education: Gait Training, Correct Positioning, Disease Process, Safety Issues Teaching Recipient: Patient Teaching Methods: Discussion Response to Teaching: Verbalize Understanding Time/GCodes Time In: 910 Time Out: 935 Total Billed Treatment Time: 25 Total Billed Treatment 1, GT (15m) & FA (10m) MARIBELL CARRILLO PTA Mar 12, 2017 10:03
--- NOTE | 2017-03-12 10:58 | Discharge Summary-Hospitalist ---
Diagnosis/Chief Complaint Date of Admission Mar 03, 2017 at 10:40 pm Date of Discharge Admission Diagnosis Dyspnea/hypoxia Subsequent respiratory failure and intubation Tobaccoism History and body habitus suggesting sleep apnea Bibasilar atelectasis/early pneumonitis Discharge Diagnosis CAP (1) CAP (community acquired pneumonia) Status: Acute Assessment & Plan: s/p extubation MRSA in sputum Continue in Vanc Day #7/, Zosyn added back as fevered yesterday Pulm consulted, appreciate recs Prednisone Taper MAT protocol CTA on 03/11 revealed right lower infiltrate and left upper infiltrate (2) Anxiety Assessment & Plan: Profound anxiety Did not tolerate Ativan previously Apprehensive about starting anxiety medicine even Agreeable to small dose of Xanax and believed it to help somewhat Will continue, plan for short term use only Continue Hydroxyzine (3) Hyperglycemia Status: Resolved Assessment & Plan: Likely steroid induced Continue to monitor Improving now that he is off IV steroids (4) Microcytic anemia Assessment & Plan: Mild, stable Likely iatrogenic Discharge Summary Discharge Physical Examination Allergies: Coded Allergies: ciprofloxacin (Unverified Allergy, Mild, 08/05/08) levofloxacin (Unverified Allergy, Mild, 08/05/08) Vitals & I&Os Vital Signs Date Time Temp Pulse Resp B/P (MAP) Pulse Ox O2 Delivery O2 Flow Rate FiO2 03/14/17 13:54 94 High Flow N/C 5.00 03/14/17 08:00 99.8 103 16 112/56 (74) Hospital Course Admitted to ICU and required intubation for pna. Was extubated but still required high levels of oxygen and had been difficult to wean. Did not tolerate weaning or much PT due to anxiety. Sputum cultures grew MRSA and on 03/11 developed fevers and worsening leukocytosis so abx broadened with addition of Zosyn. Pancultured at that time as well and results pending. He was discharged to [facility] for further pulmonary rehab and weaning off oxygen. Labs (last 24 hrs) Laboratory Tests 03/13/17 20:05: Vancomycin Level Trough 16.8 03/14/17 04:49: White Blood Count 12.0H, Red Blood Count 3.36L, Hemoglobin 10.9L, Hematocrit 33L , Mean Corpuscular Volume 98, Mean Corpuscular Hemoglobin 32, Mean Corpuscular Hemoglobin Concent 33, Red Cell Distribution Width 13.6, Platelet Count 300, Mean Platelet Volume 9.7, Neutrophils (%) (Auto) 74, Lymphocytes (%) (Auto) 13, Monocytes (%) (Auto) 10, Eosinophils (%) (Auto) 4, Basophils (%) (Auto) 0, Neutrophils # (Auto) 8.9H, Lymphocytes # (Auto) 1.5, Monocytes # (Auto) 1.1H, Eosinophils # (Auto) 0.5H, Basophils # (Auto) 0.0, Phosphorus Level 4.0, Magnesium Level 1.7L Microbiology 03/12/17 Blood Culture - Preliminary, Resulted No growth 03/12/17 Influenza Types A,B Antigen (SOLO) - Final, Complete Pending Labs Discharge Home Medications: Active Scripts Active Reported Albuterol Sulfate 2.5 Mg/3 Ml Vial.neb 2.5 Mg NEB Q6H PRN Pepcid (Famotidine) 20 Mg Tablet 20 Mg PO BID Tylenol Extra Strength (Acetaminophen) 500 Mg Tablet 1,000 Mg PO Q6H PRN Proair Hfa (Albuterol Sulfate) 8.5 Gm Hfa.aer.ad 1-2 Puff IH Q4H PRN Cold & Cough Elixir (Brompheniram/Phenylephrine/Dm) 118 Ml Solution 45 Ml PO HS PRN Benadryl (Diphenhydramine HCl) 25 Mg Capsule 50 Mg PO HS PRN TAKES 2 (25 MG) CAPS Acetaminophen Extra Strength (Acetaminophen) 500 Mg Tablet 1,000 Mg PO DAILY One Daily For Men Tablet (Multivits-Minerals/FA/Lycopene) 1 Each Tablet 1 Tab PO DAILY Instructions to patient/family Please see electronic discharge instructions given to patient. Clinical Quality Measures DVT/VTE Risk/Contraindication: Risk Factor Score Per Nursin RFS Level Per Nursing on Admit: 3=High Pneumonia: Pseudomonal Risk: COPD Copy Copies To 1: JES LIMA Problem Qualifiers (1) CAP (community acquired pneumonia): Lung location: unspecified part of lung DON RICHTER MD Mar 12, 2017 10:58
[2017-03-12] MEDS: hydrOXYzine (ATARAX) 10 MG TAB PO PRN (11:50)
[2017-03-12 12:26] LABS: BILIRUBIN,URINE NEGATIVE (NEGATIVE); CLARITY,URINE CLEAR; COLOR,URINE YELLOW; GLUCOSE, URINE (UA) NEGATIVE (NEGATIVE); KETONES,URINE NEGATIVE (NEGATIVE); LEUKOCYTE ESTERASE ,URINE NEGATIVE (NEGATIVE); NITRITE,URINE NEGATIVE (NEGATIVE); PH,URINE 7 (5-9); PROTEIN,URINE NEGATIVE (NEGATIVE); UROBILINOGEN,URINE NORMAL (NORMAL)
[2017-03-12 12:33] LABS: BACTERIA,URINE NEGATIVE /HPF; RBC,URINE RARE /HPF
--- NOTE | 2017-03-12 14:04 | Occupational Ther Daily Note ---
OT Current Status-Daily Note Subjective Pt alert, sitting in recliner. Pt stated that he was tired, but would participate in therapy. No c/o pain. Hundred rep was in room. Mental Status/Objective Functional [place] Measure 0=Not Assessed/NA 4=Minimal Assistance 1=Total Assistance 5=Supervision or Setup 2=Maximal Assistance 6=Modified [place] 3=Moderate Assistance 7=Complete [place] ADL-Treatment Toileting (FIM): 7 (Pt able to ambulate into bathroom and complete toileting by self.) Other Treatment Pt completed 3 UE exercises slowly with pursed lip breathing. Recovery break between each exercise. 1 exercises 15 reps, 2 exercises 10 reps. After therapy , pt sitting in recliner with call light/phone in reach. All needs met in room. OT Short Term Goals Short Term Goals 1=Demonstrate adherence to instructed precautions during ADL tasks. 2=Patient will verbalize/demonstrate understanding of assistive devices/ modifications for ADL. 3=Patient will improve strength/tolerance for activity to enable patient to perform ADL's. OT Intermediate Goals Intermediate Goals Time Frame: Mar 14, 2017 Eating (FIM): 7 Grooming(FIM): 6 Bathing(FIM): 6 Upper Body Dressing(FIM): 6 Lower Body Dressing(FIM): 6 Toileting(FIM): 6 Toilet/Commode Transfer(FIM): 6 Shower Transfer(FIM): 6 Additional Goals: 2-Verbalize Understanding, 3-ImproveStrength/Alexandrea 1=Demonstrate adherence to instructed precautions during ADL tasks. 2=Patient will verbalize/demonstrate understanding of assistive devices/ modifications for ADL. 3=Patient will improve strength/tolerance for activity to enable patient to perform ADL's. OT Education/Plan Problem List/Assessment Pt would benefit from skilled OT to increase his independence in basic self care and to decrease caregiver burden. Discharge Recommendations Plan/Recommendations: Continue POC Treatment Plan/Plan of Care Patient would benefit from OT for education, treatment and training to promote independence in ADL's, mobility, safety and/or upper extremity function for ADL' s. Plan of Care: ADL Retraining, Functional Mobility, UE Funct Exercise/Act Treatment Duration: Mar 14, 2017 Frequency: 5 times per week Estimated Hrs Per Day: .5 hour per day (.25 to .5) Agreement: Yes Rehab Potential: Good Time/GCodes Start Time: 13:50 Stop Time: 14:00 Total Time Billed (hr/min): 10 Billed Treatment Time 1 visit-ADL 1 (10 min) KATIE ANDERSON Mar 12, 2017 14:04
[2017-03-12 16:34] VITALS: BP 105/58
[2017-03-13] VITALS: BP 96/60
[2017-03-13] MEDS: RT-ALBUTEROL/IPRATROPIUM 3 ML (DUONEB) VIAL INH SCH ×6 (02:28→21:29)
[2017-03-13] MEDS: hydrOXYzine (ATARAX) 10 MG TAB PO PRN (04:14)
[2017-03-13 05:41] LABS: BASOPHILS % (AUTO) 0 % (0-10); EOSINOPHILS # (AUTO) 0.3 10^3/uL (0.0-0.3); EOSINOPHILS % (AUTO) 3 % (0-10); HEMATOCRIT 31 % (40-54); HEMOGLOBIN 10.3 G/DL (13.3-17.7); LYMPHOCYTES # (AUTO) 1.1 X 10^3 (1.0-4.0); LYMPHOCYTES % (AUTO) 10 % (12-44); MEAN CORPUSCULAR HEMOGLOBIN 33 PG (25-34); MEAN CORPUSCULAR HGB CONC 34 G/DL (32-36); MEAN CORPUSCULAR VOLUME 98 FL (80-99); MEAN PLATELET VOLUME 10.3 FL (7.4-10.4); MONOCYTES # (AUTO) 0.8 X 10^3 (0.0-1.0); MONOCYTES % (AUTO) 8 % (0-12); NEUTROPHILS # (AUTO) 8.6 X 10^3 (1.8-7.8); NEUTROPHILS % (AUTO) 80 % (42-75); PLATELET COUNT 256 10^3/uL (130-400); RED BLOOD COUNT 3.15 10^6/uL (4.35-5.85); RED CELL DISTRIBUTION WIDTH 13.4 % (10.0-14.5); WHITE BLOOD COUNT 10.9 10^3/uL (4.3-11.0)
[2017-03-13 06:09] LABS: ALANINE AMINOTRANSFERASE 46 U/L (0-55); ALBUMIN 2.9 GM/DL (3.2-4.5); ALKALINE PHOSPHATASE 64 U/L (40-136); BILIRUBIN,TOTAL 0.4 MG/DL (0.1-1.0); BUN/CREATININE RATIO 15; CALCIUM 8.9 MG/DL (8.5-10.1); CARBON DIOXIDE 27 MMOL/L (21-32); CHLORIDE 104 MMOL/L (98-107); CREATININE SERUM 0.99 MG/DL (0.60-1.30); GFR ESTIMATED > 60; GLUCOSE 136 MG/DL (70-105); MAGNESIUM 1.8 MG/DL (1.8-2.4); PHOSPHORUS 3.1 MG/DL (2.3-4.7); POTASSIUM 3.5 MMOL/L (3.6-5.0); SODIUM 141 MMOL/L (135-145); TOTAL PROTEIN 5.6 GM/DL (6.4-8.2)
[2017-03-13] MEDS: PIPERACILLIN SODIUM/TAZOBACTAM 4.5 GM in D5W 100 ML IVPB 100 ML IV SCH ×3 (06:34→22:15)
--- NOTE | 2017-03-13 07:01 | Pulmonary Progress Note ---
Subjective Time Seen by Provider: 07:01 Subjective/Events-last exam PT is feeling better and walking halls. Exam Exam Vital Signs Date Time Temp Pulse Resp B/P (MAP) Pulse Ox O2 Delivery O2 Flow Rate FiO2 03/13/17 02:30 94 High Flow N/C 6.00 03/13/17 00:00 98.0 90 18 96/60 (72) 95 High Flow N/C 8.00 03/12/17 21:58 94 High Flow N/C 6.00 03/12/17 21:00 High Flow N/C 6.00 03/12/17 18:30 High Flow N/C 6.00 03/12/17 18:25 93 High Flow N/C 6.00 03/12/17 16:34 97.9 89 18 105/58 (74) 97 High Flow N/C 8.00 03/12/17 14:35 94 High Flow N/C 6.00 03/12/17 10:39 91 High Flow N/C 6.00 03/12/17 08:20 High Flow N/C 6.00 03/12/17 08:00 99.5 96 20 104/56 (72) 93 High Flow N/C 8.00 I & O 03/13/17 07:00 Intake Total 4884.5 ml Output Total 200 ml Balance 4684.5 ml General Appearance: WD/WN, Anxious, Mild Distress HEENT: Other Neck: Normal Inspection Respiratory: No Accessory Muscle Use, Decreased Breath Sounds, Wheezing Cardiovascular: Regular Rate, Rhythm, No Murmur Capillary Refill: Less Than 3 Seconds Gastrointestinal: normal bowel sounds, non tender, soft Extremity: Normal Capillary Refill, Normal Inspection, Normal Range of Motion, Non Tender, No Calf Tenderness, No Pedal Edema Neurologic/Psychiatric: Alert, Oriented x3 Skin: Normal Color, Warm/Dry Lymphatic: No Adenopathy Results Lab Laboratory Tests 03/12/17 05:19 03/13/17 05:05 Assessment/Plan Assessment/Plan Acute respiratory distress this AM - Zosyn -Repeat Labs Pneumonia with acute bronchitis -SVNs to Q 4 and Q2 PRN - Vanco -Prednisone taper Depression/anxiety -Increase activity -Pt/OT Weakness/debility -PT/OT Tobacco use r/o COPD -education -Check PFT as out patient Obesity with probable JOYCELYN -PT will need out patient PSG and work up increase activity, pT/OT 232 Clinical Quality Measures DVT/VTE Risk/Contraindication: Risk Factor Score Per Nursin RFS Level Per Nursing on Admit: 3=High Pneumonia: Pseudomonal Risk: COPD TEJA ADAMS DO Mar 13, 2017 07:01
[2017-03-13] MEDS: ADVAIR HFA 115/21 MCG INHALER 8 GM IH SCH ×2 (07:27→21:29)
[2017-03-13 08:00] VITALS: BP 104/65
[2017-03-13] MEDS: NICOTINE 21 MG (NICODERM) PATCH TD SCH (08:40)
[2017-03-13] MEDS: VANCOMYCIN INJECTION 1,750 MG in NS IV 500 ML 500 ML IV SCH ×2 (09:47→20:53)
[2017-03-13] MEDS: predniSONE 10 MG TAB PO SCH (09:48)
[2017-03-13] MEDS: DOCUSATE SODIUM 100 MG (COLACE) CAP PO SCH ×2 (09:48→20:53)
[2017-03-13] MEDS: ALPRAZolam 0.25 MG (XANAX) TAB PO SCH ×2 (09:49→20:53)
[2017-03-13] MEDS: FAMOTIDINE 20 MG (PEPCID) TABLET PO SCH ×2 (09:49→20:53)
[2017-03-13] MEDS: LIDOCAINE (LIDODERM) 5% PATCH TOP SCH ×2 (09:49→09:52)
[2017-03-13] MEDS: buPROPion SR 150 MG (WELLBUTRIN SR) TAB PO SCH ×2 (09:49→20:53)
[2017-03-13] MEDS: risperiDONE 1 MG (RisperDAL) TAB PO SCH ×2 (09:49→20:54)
--- NOTE | 2017-03-13 10:49 | Occupational Ther Daily Note ---
OT Current Status-Daily Note Subjective Pt alert, sitting in recliner. Pt agreed to therapy. No c/o pain at this time. Mental Status/Objective Functional [place] Measure 0=Not Assessed/NA 4=Minimal Assistance 1=Total Assistance 5=Supervision or Setup 2=Maximal Assistance 6=Modified [place] 3=Moderate Assistance 7=Complete [place] Attachments: IV, Oxygen ADL-Treatment Pt stated that he had already washed lower body and changed lower body clothing. He didn't want to complete ADLs with upper body due to not being able to take of shirt because of IV. Pt declined any ADLs at this time. Pt did stated that he is able to complete lower body bathing and dressing by self. Needed to take his time due to LOB with activity. Other Treatment Pt did complete UE light resistance theraband exercises. Pt completed 3 exercises slowly and used pursed lip breathing through exercises. Pt completed shldr exercise 3 sets 10 reps and stated that his shldrs were fatigued. Bicep/ tricep exercises completed, 1 set 10 reps with each UE. After therapy, pt sitting in recliner with call light/phone in reach. All needs met in room. OT Short Term Goals Short Term Goals 1=Demonstrate adherence to instructed precautions during ADL tasks. 2=Patient will verbalize/demonstrate understanding of assistive devices/ modifications for ADL. 3=Patient will improve strength/tolerance for activity to enable patient to perform ADL's. OT [employer] Goals Care Home Goals Time Frame: Mar 14, 2017 Eating (FIM): 7 Grooming(FIM): 6 Bathing(FIM): 6 Upper Body Dressing(FIM): 6 Lower Body Dressing(FIM): 6 Toileting(FIM): 6 Toilet/Commode Transfer(FIM): 6 Shower Transfer(FIM): 6 Additional Goals: 2-Verbalize Understanding, 3-ImproveStrength/Alexandrea 1=Demonstrate adherence to instructed precautions during ADL tasks. 2=Patient will verbalize/demonstrate understanding of assistive devices/ modifications for ADL. 3=Patient will improve strength/tolerance for activity to enable patient to perform ADL's. OT Education/Plan Problem List/Assessment Pt would benefit from skilled OT to increase his independence in basic self care and to decrease caregiver burden. Discharge Recommendations Plan/Recommendations: Continue POC Treatment Plan/Plan of Care Patient would benefit from OT for education, treatment and training to promote independence in ADL's, mobility, safety and/or upper extremity function for ADL' s. Plan of Care: ADL Retraining, Functional Mobility, UE Funct Exercise/Act Treatment Duration: Mar 14, 2017 Frequency: 5 times per week Estimated Hrs Per Day: .5 hour per day (.25 to .5) Agreement: Yes Rehab Potential: Good Time/GCodes Start Time: 10:30 Stop Time: 10:45 Total Time Billed (hr/min): 15 Billed Treatment Time 1 visit-EX 1 (15 min) KATIE ANDERSON Mar 13, 2017 10:49
--- NOTE | 2017-03-13 11:19 | Physical Therapy Progress Note ---
Therapy Progress Note Patient is up independently in room and hallway on 5-6L >500' multiple times on this date and reports he does not need PT anymore. RN confirms patient's report. PT to dismiss from services at this time and education with patient on continuing with activity. 1 visit WESTON TARIQ PT Mar 13, 2017 11:19
--- NOTE | 2017-03-13 12:35 | Progress Note-Hospitalist ---
Subjective HPI/CC On Admission Date Seen by Provider: Mar 13, 2017 Time Seen by Provider: 08:00 The patient is a 46-year-old white male who arrived at the emergency room late last evening by EMS. He apparently had been ill with upper respiratory symptoms for several days which included fever and cough. This has gotten progressively worse. On the date of admission he told the paramedics that he believes he was going to quit breathing he was noted to be febrile at 101.1 he stated that he seems to get pneumonia about once a year. He continues to smoke. His states that she is concerned on the basis of his snoring and irregular respiration during sleep that he has sleep apnea. Subsequently he continued to exhibits considerable difficulty in maintaining his SaO2 at a satisfactory level. He was assessed by Dr. Blackwell from pulmonary and was intubated and sedated and placed on the ventilator. Subjective/Events-last exam Pt reports feeling better today. He was up ambulating the halls this morning and felt well though still requiring 6-8lpm. Objective Exam Vital Signs Vital Sign - Last 12Hours 03/07/17 00:00 Temp 99.1 Pulse 66 Resp 21 B/P (MAP) 110/50 (70) Pulse Ox 96 O2 Delivery NIV Bilevel O2 Flow Rate 25.00 FiO2 25 Capillary Refill : Less Than 3 Seconds General Appearance: No Apparent Distress, WD/WN Respiratory: No Respiratory Distress, Rhonci Cardiovascular: Regular Rate, Rhythm, No Murmur Gastrointestinal: Normal Bowel Sounds, Non Tender, Soft Extremity: Non Tender, No Calf Tenderness Neurologic/Psychiatric: Alert, Oriented x3 Results/Procedures Lab Laboratory Tests 03/13/17 05:05 Assessment/Plan Assessment and Plan Assess & Plan/Chief Complaint CAP Diagnosis/Problems Diagnosis/Problems (1) CAP (community acquired pneumonia) Status: Acute Assessment & Plan: s/p extubation MRSA in sputum Continue in Vanc Day #09/26, Zosyn added back 03/12 as fevered yesterday and no growing haemophilus Pulm consulted, appreciate recs Prednisone Taper MAT protocol CTA on 03/11 revealed right lower infiltrate and left upper infiltrate Insurance declined transfer to [facility] swing bed eval for continued IV abx and oxygen need Qualifiers: (2) Anxiety Assessment & Plan: Profound anxiety Did not tolerate Ativan previously Apprehensive about starting anxiety medicine even Tolerating Xanax Will continue, plan for short term use only Continue Hydroxyzine (3) Hyperglycemia Status: Resolved Assessment & Plan: Likely steroid induced Continue to monitor Improving now that he is off IV steroids (4) Microcytic anemia Assessment & Plan: Mild, stable Likely iatrogenic DON RICHTER MD Mar 13, 2017 12:35
[2017-03-13 16:00] VITALS: BP 118/67
[2017-03-13] MEDS ORDERED: TROUGH ORDER-PHARMACY XX ONE (20:00)
[2017-03-14] VITALS: BP 106/66
[2017-03-14] MEDS: hydrOXYzine (ATARAX) 10 MG TAB PO PRN (01:59)
[2017-03-14] MEDS: RT-ALBUTEROL/IPRATROPIUM 3 ML (DUONEB) VIAL INH SCH ×6 (02:19→22:45)
[2017-03-14 05:03] LABS: BASOPHILS % (AUTO) 0 % (0-10); EOSINOPHILS # (AUTO) 0.5 10^3/uL (0.0-0.3); EOSINOPHILS % (AUTO) 4 % (0-10); HEMATOCRIT 33 % (40-54); HEMOGLOBIN 10.9 G/DL (13.3-17.7); LYMPHOCYTES # (AUTO) 1.5 X 10^3 (1.0-4.0); LYMPHOCYTES % (AUTO) 13 % (12-44); MEAN CORPUSCULAR HEMOGLOBIN 32 PG (25-34); MEAN CORPUSCULAR HGB CONC 33 G/DL (32-36); MEAN CORPUSCULAR VOLUME 98 FL (80-99); MEAN PLATELET VOLUME 9.7 FL (7.4-10.4); MONOCYTES # (AUTO) 1.1 X 10^3 (0.0-1.0); MONOCYTES % (AUTO) 10 % (0-12); NEUTROPHILS # (AUTO) 8.9 X 10^3 (1.8-7.8); NEUTROPHILS % (AUTO) 74 % (42-75); PLATELET COUNT 300 10^3/uL (130-400); RED BLOOD COUNT 3.36 10^6/uL (4.35-5.85); RED CELL DISTRIBUTION WIDTH 13.6 % (10.0-14.5)
[2017-03-14 05:22] LABS: MAGNESIUM 1.7 MG/DL (1.8-2.4)
[2017-03-14] MEDS: PIPERACILLIN SODIUM/TAZOBACTAM 4.5 GM in D5W 100 ML IVPB 100 ML IV SCH ×3 (05:24→23:33)
--- NOTE | 2017-03-14 06:22 | Pulmonary Progress Note ---
Subjective Time Seen by Provider: 06:53 Subjective/Events-last exam pt feels improved. Exam Exam Vital Signs Date Time Temp Pulse Resp B/P (MAP) Pulse Ox O2 Delivery O2 Flow Rate FiO2 03/14/17 02:19 95 High Flow N/C 5.00 03/14/17 00:00 98.6 92 16 106/66 (79) 96 High Flow N/C 8.00 03/13/17 21:29 High Flow N/C 6.00 03/13/17 21:29 97 High Flow N/C 5.00 03/13/17 21:00 High Flow N/C 6.00 03/13/17 16:00 97.9 103 22 118/67 (84) 95 High Flow N/C 8.00 03/13/17 14:45 94 High Flow N/C 6.00 03/13/17 10:57 94 High Flow N/C 6.00 03/13/17 08:00 98.8 95 22 104/65 (78) 93 High Flow N/C 8.00 03/13/17 08:00 High Flow N/C 6.00 03/13/17 07:31 94 High Flow N/C 6.00 03/13/17 07:27 94 High Flow N/C 6.00 I & O 03/14/17 07:00 Intake Total 2557.5 ml Output Total 650 ml Balance 1907.5 ml General Appearance: No Apparent Distress, WD/WN HEENT: Other Neck: Normal Inspection Respiratory: No Respiratory Distress, Rhonci Cardiovascular: Regular Rate, Rhythm, No Murmur Capillary Refill: Less Than 3 Seconds Gastrointestinal: normal bowel sounds, non tender, soft Extremity: Non Tender, No Calf Tenderness Neurologic/Psychiatric: Alert, Oriented x3 Skin: Normal Color, Warm/Dry Lymphatic: No Adenopathy Results Lab Laboratory Tests 03/13/17 05:05 03/14/17 04:49 Assessment/Plan Assessment/Plan Acute respiratory distress this AM -repeat PA/LAT CXR Pneumonia with acute bronchitis -SVNs to Q 4 and Q2 PRN - Vanco , Zosyn -Prednisone taper Depression/anxiety -Increase activity -Pt/OT Weakness/debility -PT/OT Tobacco use r/o COPD -education -Check PFT as out patient Obesity with probable JOYCELYN -PT will need out patient PSG and work up increase activity, pT/OT 232 Clinical Quality Measures DVT/VTE Risk/Contraindication: Risk Factor Score Per Nursin RFS Level Per Nursing on Admit: 3=High Pneumonia: Pseudomonal Risk: COPD TEJA ADAMS DO Mar 14, 2017 06:22
[2017-03-14] MEDS: ADVAIR HFA 115/21 MCG INHALER 8 GM IH SCH ×2 (06:30→22:44)
[2017-03-14 08:00] VITALS: BP 112/56
--- NOTE | 2017-03-14 08:25 | Progress Note-Hospitalist ---
Subjective HPI/CC On Admission Date Seen by Provider: Mar 14, 2017 Time Seen by Provider: 08:10 The patient is a 46-year-old white male who arrived at the emergency room late last evening by EMS. He apparently had been ill with upper respiratory symptoms for several days which included fever and cough. This has gotten progressively worse. On the date of admission he told the paramedics that he believes he was going to quit breathing he was noted to be febrile at 101.1 he stated that he seems to get pneumonia about once a year. He continues to smoke. His states that she is concerned on the basis of his snoring and irregular respiration during sleep that he has sleep apnea. Subsequently he continued to exhibits considerable difficulty in maintaining his SaO2 at a satisfactory level. He was assessed by Dr. Blackwell from pulmonary and was intubated and sedated and placed on the ventilator. Subjective/Events-last exam Pt reports feeling well. Having some coughing fits but overall feeling better. Objective Exam Vital Signs Vital Sign - Last 12Hours 03/08/17 03/08/17 00:00 00:42 Temp 96.6 Pulse 66 Resp 20 B/P (MAP) 121/69 (86) Pulse Ox 97 O2 Delivery Vapotherm O2 Flow Rate 35.00 Capillary Refill : Less Than 3 Seconds General Appearance: No Apparent Distress, WD/WN Respiratory: No Accessory Muscle Use, No Respiratory Distress, Wheezing Cardiovascular: Regular Rate, Rhythm, No Murmur Gastrointestinal: Normal Bowel Sounds, Non Tender, Soft Neurologic/Psychiatric: Alert, Oriented x3 Results/Procedures Lab Laboratory Tests 03/14/17 04:49 Assessment/Plan Assessment and Plan Assess & Plan/Chief Complaint CAP Diagnosis/Problems Diagnosis/Problems (1) CAP (community acquired pneumonia) Status: Acute Assessment & Plan: s/p extubation MRSA in sputum Continue in Vanc Day #10/27, Zosyn added back 03/12 as fevered yesterday and no growing haemophilus Pulm consulted, appreciate recs Prednisone Taper MAT protocol CTA on 03/11 revealed right lower infiltrate and left upper infiltrate Insurance declined transfer to [place] Continue to wean oxygen Qualifiers: (2) Anxiety Assessment & Plan: Profound anxiety Did not tolerate Ativan previously Apprehensive about starting anxiety medicine even Tolerating Xanax Will continue, plan for short term use only Continue Hydroxyzine (3) Hyperglycemia Status: Resolved Assessment & Plan: Likely steroid induced Continue to monitor Improving now that he is off IV steroids (4) Microcytic anemia Assessment & Plan: Mild, stable Likely iatrogenic DON RICHTER MD Mar 14, 2017 08:25
--- NOTE | 2017-03-14 08:47 | Diagnostic Imaging Report ---
INDICATION: Shortness of breath. Comparison made with prior examination 03/11/17. FINDINGS: Heart size is normal. There is an increasing left upper lobe pneumonia as well as right base infiltrate suspect for pneumonia. There is no pleural effusion or pneumothorax. Mediastinum is unremarkable. IMPRESSION: Left upper lobe and right lower lobe pneumonia. Dictated by: Dictated on workstation # [id number]
[2017-03-14] MEDS: NICOTINE 21 MG (NICODERM) PATCH TD SCH (08:49)
[2017-03-14] MEDS: predniSONE 10 MG TAB PO SCH (08:49)
[2017-03-14] MEDS: LIDOCAINE (LIDODERM) 5% PATCH TOP SCH ×2 (08:49→08:54)
[2017-03-14] MEDS: DOCUSATE SODIUM 100 MG (COLACE) CAP PO SCH ×2 (08:49→20:47)
[2017-03-14] MEDS: FAMOTIDINE 20 MG (PEPCID) TABLET PO SCH ×2 (08:49→20:45)
[2017-03-14] MEDS: risperiDONE 1 MG (RisperDAL) TAB PO SCH ×2 (08:49→20:46)
[2017-03-14] MEDS: buPROPion SR 150 MG (WELLBUTRIN SR) TAB PO SCH ×2 (08:49→20:46)
[2017-03-14] MEDS: ALPRAZolam 0.25 MG (XANAX) TAB PO SCH ×2 (08:54→20:46)
--- NOTE | 2017-03-14 09:56 | Occupational Ther Daily Note ---
OT Current Status-Daily Note Subjective Pt alert, sitting on EOB. Pt agreed to therapy. No c/o pain at this time. Mental Status/Objective Patient Orientation: Person, Place, Time, Situation Functional [place] Measure 0=Not Assessed/NA 4=Minimal Assistance 1=Total Assistance 5=Supervision or Setup 2=Maximal Assistance 6=Modified [place] 3=Moderate Assistance 7=Complete [place] ADL-Treatment Pt ambulated into bathroom to take shower. Pt doffed clothing by self. Pt retrieved own clothing. Pt completed shower using grabbar, hand held shower and shower bench with mod I. Pt completed dressing with mod I, sitting and using grabbar to balance self.. Pt stood at sink to complete own grooming. Pt able to manipulate O2 tubing during ADLs by self. After therapy, pt sitting EOB with call light/phone in reach. All needs met in room. Grooming (FIM): 7 Bathing (FIM): 6 Upper Body (FIM): 7 Lower Body Dressing (FIM): 6 Toileting (FIM): 6 Transfers (B, C, W/C) (FIM): 7 Toilet/Commode Transfer (FIM): 6 Shower Transfer(FIM): 6 OT Short Term Goals Short Term Goals 1=Demonstrate adherence to instructed precautions during ADL tasks. 2=Patient will verbalize/demonstrate understanding of assistive devices/ modifications for ADL. 3=Patient will improve strength/tolerance for activity to enable patient to perform ADL's. OT Fci Goals Fci Goals Time Frame: Mar 14, 2017 Eating (FIM): 7 (met-03/14/2017) Grooming(FIM): 6 (met-03/14/2017) Bathing(FIM): 6 (met03/14/2017) Upper Body Dressing(FIM): 6 (met03/14/2017) Lower Body Dressing(FIM): 6 (met-03/14/2017) Toileting(FIM): 6 (met-03/14/2017) Toilet/Commode Transfer(FIM): 6 (met03/14/2017) Shower Transfer(FIM): 6 (met03/14/2017) Additional Goals: 2-Verbalize Understanding, 3-ImproveStrength/Alexandrea 1=Demonstrate adherence to instructed precautions during ADL tasks. 2=Patient will verbalize/demonstrate understanding of assistive devices/ modifications for ADL. 3=Patient will improve strength/tolerance for activity to enable patient to perform ADL's. OT Education/Plan Problem List/Assessment Pt would benefit from skilled OT to increase his independence in basic self care and to decrease caregiver burden. Discharge Recommendations Plan/Recommendations: Continue POC Treatment Plan/Plan of Care Patient would benefit from OT for education, treatment and training to promote independence in ADL's, mobility, safety and/or upper extremity function for ADL' s. Plan of Care: ADL Retraining, Functional Mobility, UE Funct Exercise/Act Treatment Duration: Mar 14, 2017 Frequency: 5 times per week Estimated Hrs Per Day: .5 hour per day (.25 to .5) Agreement: Yes Rehab Potential: Good Time/GCodes Start Time: 09:40 Stop Time: 10:06 Total Time Billed (hr/min): 26 Billed Treatment Time 1 visit-ADL 2 (26 min) KATIE ANDERSON Mar 14, 2017 09:56
[2017-03-14] MEDS: VANCOMYCIN INJECTION 1,750 MG in NS IV 500 ML 500 ML IV SCH ×2 (09:58→20:44)
--- NOTE | 2017-03-14 11:55 | Occ Therapy Progress Note ---
Therapy Progress Note Pt has met all OT shelter goals and is independent to modified independent with all basic ADLs. He has had education on energy conservation techniques and has theraband in his room for UE exercises. Will DC OT with all goals met. ARCADIO DAMIAN OT Mar 14, 2017 11:55
[2017-03-14] MEDS: CALCIUM CARBONATE 500 MG (TUMS) TAB.CHEW PO PRN (16:10)
[2017-03-14 16:26] VITALS: BP 123/61
[2017-03-15] VITALS: BP 108/65
[2017-03-15] MEDS: CALCIUM CARBONATE 500 MG (TUMS) TAB.CHEW PO PRN (00:27)
[2017-03-15] MEDS: RT-ALBUTEROL/IPRATROPIUM 3 ML (DUONEB) VIAL INH SCH ×6 (03:20→21:43)
[2017-03-15 06:10] LABS: BASOPHILS % (AUTO) 0 % (0-10); EOSINOPHILS # (AUTO) 0.5 10^3/uL (0.0-0.3); EOSINOPHILS % (AUTO) 5 % (0-10); HEMATOCRIT 32 % (40-54); HEMOGLOBIN 10.9 G/DL (13.3-17.7); LYMPHOCYTES % (AUTO) 10 % (12-44); MEAN CORPUSCULAR HEMOGLOBIN 33 PG (25-34); MEAN CORPUSCULAR HGB CONC 34 G/DL (32-36); MEAN CORPUSCULAR VOLUME 98 FL (80-99); MONOCYTES # (AUTO) 1.2 X 10^3 (0.0-1.0); MONOCYTES % (AUTO) 12 % (0-12); NEUTROPHILS # (AUTO) 7.7 X 10^3 (1.8-7.8); NEUTROPHILS % (AUTO) 73 % (42-75); PLATELET COUNT 304 10^3/uL (130-400); RED BLOOD COUNT 3.31 10^6/uL (4.35-5.85); RED CELL DISTRIBUTION WIDTH 13.4 % (10.0-14.5); WHITE BLOOD COUNT 10.4 10^3/uL (4.3-11.0)
[2017-03-15 06:29] LABS: ALANINE AMINOTRANSFERASE 58 U/L (0-55); ALBUMIN 3.2 GM/DL (3.2-4.5); ALKALINE PHOSPHATASE 69 U/L (40-136); BILIRUBIN,TOTAL 0.7 MG/DL (0.1-1.0); BUN/CREATININE RATIO 11; CARBON DIOXIDE 26 MMOL/L (21-32); CHLORIDE 100 MMOL/L (98-107); CREATININE SERUM 1.23 MG/DL (0.60-1.30); GFR ESTIMATED > 60; GLUCOSE 97 MG/DL (70-105); MAGNESIUM 1.5 MG/DL (1.8-2.4); PHOSPHORUS 3.8 MG/DL (2.3-4.7); POTASSIUM 3.4 MMOL/L (3.6-5.0); SODIUM 139 MMOL/L (135-145); TOTAL PROTEIN 6.3 GM/DL (6.4-8.2)
[2017-03-15] MEDS: ADVAIR HFA 115/21 MCG INHALER 8 GM IH SCH ×2 (06:41→19:22)
[2017-03-15] MEDS ORDERED: PIPERACILLIN SODIUM/TAZOBACTAM 4.5 GM in D5W 100 ML IVPB 100 ML IV SCH (07:30)
[2017-03-15 08:00] VITALS: BP 114/75
[2017-03-15] MEDS: NICOTINE 21 MG (NICODERM) PATCH TD SCH (09:15)
[2017-03-15] MEDS: ALPRAZolam 0.25 MG (XANAX) TAB PO SCH ×2 (09:15→20:02)
[2017-03-15] MEDS: risperiDONE 1 MG (RisperDAL) TAB PO SCH ×2 (09:16→20:03)
[2017-03-15] MEDS: predniSONE 10 MG TAB PO SCH (09:16)
[2017-03-15] MEDS: FAMOTIDINE 20 MG (PEPCID) TABLET PO SCH ×2 (09:16→20:02)
[2017-03-15] MEDS: hydrOXYzine (ATARAX) 10 MG TAB PO PRN ×2 (09:16→14:28)
[2017-03-15] MEDS: DOCUSATE SODIUM 100 MG (COLACE) CAP PO SCH ×2 (09:16→20:02)
[2017-03-15] MEDS: LIDOCAINE (LIDODERM) 5% PATCH TOP SCH (09:17)
[2017-03-15] MEDS: buPROPion SR 150 MG (WELLBUTRIN SR) TAB PO SCH ×2 (09:17→20:02)
[2017-03-15] MEDS: guaiFENesin/DM (ROBITUSSIN DM) 10 ML UDC PO PRN ×2 (12:08→17:32)
[2017-03-15] MEDS: IBUPROFEN 600 MG (MOTRIN) TAB PO PRN (12:08)
--- NOTE | 2017-03-15 13:34 | Progress Note-Hospitalist ---
Subjective HPI/CC On Admission Date Seen by Provider: Mar 15, 2017 Time Seen by Provider: 12:30 The patient is a 46-year-old white male who arrived at the emergency room late last evening by EMS. He apparently had been ill with upper respiratory symptoms for several days which included fever and cough. This has gotten progressively worse. On the date of admission he told the paramedics that he believes he was going to quit breathing he was noted to be febrile at 101.1 he stated that he seems to get pneumonia about once a year. He continues to smoke. His states that she is concerned on the basis of his snoring and irregular respiration during sleep that he has sleep apnea. Subsequently he continued to exhibits considerable difficulty in maintaining his SaO2 at a satisfactory level. He was assessed by Dr. Blackwell from pulmonary and was intubated and sedated and placed on the ventilator. Subjective/Events-last exam patient reports feeling less short of breath. Sputum production is decreasing and becoming cleaner carpet and upholstery in color. He denies any hemoptysis chills or fever. He reports 2 days ago the onset of a papular erythematous eruption on his chest and is now coalescing and involving his back on her upper arms and upper legs. He denies any eye or oral irritation and denies any oral sores. He denies joint aches or pain. He has a past history of apparent rash following quinolone therapy he believes Cipro with no other antibiotic allergies being noted. Objective Exam Vital Signs Vital Sign - Last 12Hours 03/09/17 00:00 Temp 97.3 Pulse 74 Resp 18 B/P (MAP) 118/64 (82) Pulse Ox 91 O2 Delivery Nasal Cannula O2 Flow Rate 2.00 Capillary Refill : Less Than 3 Seconds General Appearance: No Apparent Distress, WD/WN, Anxious Respiratory: Chest Non Tender, Normal Breath Sounds, No Accessory Muscle Use, No Respiratory Distress, Accessory Muscle Use, Other (rales in right base chest clear elsewhere.) Cardiovascular: Regular Rate, Rhythm, No Edema, No Gallop, No JVD, No Murmur, Normal Peripheral Pulses Gastrointestinal: Normal Bowel Sounds, No Organomegaly, No Pulsatile Mass, Non Tender, Soft Skin: Other (Chavez eruption on chest undergoing coalescence with involvement of the back and to a lesser extent upper arms and upper thighs and neck minimal facial involvement.) Lymphatic: No Adenopathy Results/Procedures Lab Laboratory Tests 03/15/17 05:36 Assessment/Plan Assessment and Plan Assess & Plan/Chief Complaint 1. Post viral methicillin resistant staph aureus pneumonia and sepsis resolving. There is also Haemophilus beta lactam positive involvement. 2. Rash compatible with drug eruption with either vancomycin or Zosyn being the likely culprits. As he does appear to be responding will discontinue both of these antibiotics and replace with Rocephin and doxycycline. We'll continue IV steroids and monitoring of his rash. He was advised that we'll get worse before it gets better but thus far there is no evidence for systemic symptoms or mucous membrane involvement. ZAHRA MOHR MD Mar 15, 2017 13:34
[2017-03-15] MEDS: cefTRIAXone INJECTION 1,000 MG in D5W 50 ML IVPB SOLUTION 50 ML IV SCH (14:26)
[2017-03-15 16:30] VITALS: BP 110/64
[2017-03-15] MEDS: DOXYCYCLINE 100 MG (VIBRAMYCIN) TABLET PO SCH (17:31)
[2017-03-16] VITALS: BP 111/69
[2017-03-16] MEDS: RT-ALBUTEROL/IPRATROPIUM 3 ML (DUONEB) VIAL INH SCH ×6 (02:03→21:21)
[2017-03-16] MEDS: DOXYCYCLINE 100 MG (VIBRAMYCIN) TABLET PO SCH ×2 (06:03→16:55)
[2017-03-16 06:14] LABS: BASOPHILS % (AUTO) 0 % (0-10); EOSINOPHILS # (AUTO) 0.5 10^3/uL (0.0-0.3); EOSINOPHILS % (AUTO) 4 % (0-10); HEMATOCRIT 31 % (40-54); HEMOGLOBIN 10.6 G/DL (13.3-17.7); LYMPHOCYTES # (AUTO) 1.7 X 10^3 (1.0-4.0); LYMPHOCYTES % (AUTO) 15 % (12-44); MEAN CORPUSCULAR HEMOGLOBIN 33 PG (25-34); MEAN CORPUSCULAR HGB CONC 34 G/DL (32-36); MEAN CORPUSCULAR VOLUME 98 FL (80-99); MEAN PLATELET VOLUME 10.4 FL (7.4-10.4); MONOCYTES # (AUTO) 1.1 X 10^3 (0.0-1.0); MONOCYTES % (AUTO) 9 % (0-12); NEUTROPHILS # (AUTO) 8.4 X 10^3 (1.8-7.8); NEUTROPHILS % (AUTO) 71 % (42-75); PLATELET COUNT 305 10^3/uL (130-400); RED CELL DISTRIBUTION WIDTH 13.6 % (10.0-14.5); WHITE BLOOD COUNT 11.8 10^3/uL (4.3-11.0)
[2017-03-16 06:45] LABS: ALANINE AMINOTRANSFERASE 51 U/L (0-55); ALBUMIN 3.1 GM/DL (3.2-4.5); ALKALINE PHOSPHATASE 75 U/L (40-136); BILIRUBIN,TOTAL 0.4 MG/DL (0.1-1.0); BUN/CREATININE RATIO 15; CALCIUM 8.9 MG/DL (8.5-10.1); CARBON DIOXIDE 25 MMOL/L (21-32); CHLORIDE 104 MMOL/L (98-107); CREATININE SERUM 1.17 MG/DL (0.60-1.30); GFR ESTIMATED > 60; GLUCOSE 103 MG/DL (70-105); MAGNESIUM 1.8 MG/DL (1.8-2.4); POTASSIUM 3.5 MMOL/L (3.6-5.0); SODIUM 140 MMOL/L (135-145); TOTAL PROTEIN 6.1 GM/DL (6.4-8.2)
[2017-03-16] MEDS: ADVAIR HFA 115/21 MCG INHALER 8 GM IH SCH ×2 (06:52→21:34)
[2017-03-16 08:00] VITALS: BP 116/67
[2017-03-16] MEDS: DOCUSATE SODIUM 100 MG (COLACE) CAP PO SCH ×2 (08:04→19:57)
[2017-03-16] MEDS: LIDOCAINE (LIDODERM) 5% PATCH TOP SCH (08:04)
[2017-03-16] MEDS: NICOTINE 21 MG (NICODERM) PATCH TD SCH (08:59)
[2017-03-16] MEDS: buPROPion SR 150 MG (WELLBUTRIN SR) TAB PO SCH ×2 (09:00→19:58)
[2017-03-16] MEDS: predniSONE 10 MG TAB PO SCH (09:00)
[2017-03-16] MEDS: FAMOTIDINE 20 MG (PEPCID) TABLET PO SCH ×2 (09:00→19:58)
[2017-03-16] MEDS: IBUPROFEN 600 MG (MOTRIN) TAB PO PRN (09:00)
[2017-03-16] MEDS: hydrOXYzine (ATARAX) 10 MG TAB PO PRN ×2 (09:01→13:19)
[2017-03-16] MEDS: ALPRAZolam 0.25 MG (XANAX) TAB PO SCH ×2 (09:01→19:58)
[2017-03-16] MEDS: risperiDONE 1 MG (RisperDAL) TAB PO SCH ×2 (09:01→19:58)
[2017-03-16] MEDS: guaiFENesin/DM (ROBITUSSIN DM) 10 ML UDC PO PRN ×3 (09:02→16:58)
--- NOTE | 2017-03-16 11:34 | Progress Note-Hospitalist ---
Subjective HPI/CC On Admission Date Seen by Provider: Mar 16, 2017 Time Seen by Provider: 10:30 The patient is a 46-year-old white male who arrived at the emergency room late last evening by EMS. He apparently had been ill with upper respiratory symptoms for several days which included fever and cough. This has gotten progressively worse. On the date of admission he told the paramedics that he believes he was going to quit breathing he was noted to be febrile at 101.1 he stated that he seems to get pneumonia about once a year. He continues to smoke. His states that she is concerned on the basis of his snoring and irregular respiration during sleep that he has sleep apnea. Subsequently he continued to exhibits considerable difficulty in maintaining his SaO2 at a satisfactory level. He was assessed by Dr. Blackwell from pulmonary and was intubated and sedated and placed on the ventilator. Subjective/Events-last exam nursing staff notified me for speaking with the patient the was extremely anxious over the fact that his rash is more red. I had warned him yesterday that he would definitely get worse before he got better in regards to skin rash. He is been hyperventilating and difficult per nursing staff to calm down despite benzodiazepine use. The patient was anxious upon my arrival but did not appear to be in respiratory distress. He denies eye irritation or mucous membrane irritation or sores. He denies chills or fever. Sputum production is decreasing with no hemoptysis. Objective Exam Vital Signs Vital Sign - Last 12Hours 03/10/17 03/10/17 00:36 00:45 Temp 99.1 Pulse 88 Resp 24 B/P (MAP) 125/73 (90) Pulse Ox 91 O2 Delivery Nasal Cannula O2 Flow Rate 3.00 Capillary Refill : Less Than 3 Seconds General Appearance: No Apparent Distress, Anxious HEENT: Pharynx Normal, Other (conjunctiva normal bilaterally no evidence for oral inflammation and erythema etc.) Respiratory: Other (table by basilar rales no wheezing noted today.) Cardiovascular: Regular Rate, Rhythm, No Edema, No Gallop, No JVD, No Murmur, Normal Peripheral Pulses Skin: Other (coalescing areas of erythema on chest and back are noted with superficial desquamation on the back. No vesicles are noted. There is no pain to palpation and no palm or sole involvement.) Results/Procedures Lab Laboratory Tests 03/16/17 04:38 Assessment/Plan Assessment and Plan Assess & Plan/Chief Complaint 1. Post viral methicillin resistant staph aureus pneumonia and sepsis resolving. There is also Haemophilus beta lactam positive involvement. 2. Rash compatible with drug eruption with either vancomycin or Zosyn being the likely culprits. his present today states that he may have had a reaction/drug eruption with Aleve in the past. Considering this ibuprofen is being discontinued and will give scheduled Tylenol. As he does appear to be responding will discontinue both of these antibiotics and replace with Rocephin and doxycycline. We'll continue IV steroids and monitoring of his rash. He was advised that we'll get worse before it gets better but thus far there is no evidence for systemic symptoms or mucous membrane involvement. 3. Acute exacerbation of generalized anxiety secondary to number 2. There is no evidence for Ruiz-Robby syndrome or systemic involvement. Again told patient that it will take several weeks for the rash to resolve and that it will look worse under any circumstances were his skin gets warmer activity showers etc. but this will not cause further adverse health outcome with expected resolution over the next 1-2 weeks. ZAHRA MOHR MD Mar 16, 2017 11:34
[2017-03-16] MEDS: ACETAMINOPHEN 500 MG TAB (TYLENOL) PO SCH ×2 (13:19→21:30)
[2017-03-16] MEDS: cefTRIAXone INJECTION 1,000 MG in D5W 50 ML IVPB SOLUTION 50 ML IV SCH (13:20)
[2017-03-16 16:40] VITALS: BP 113/67
[2017-03-16] MEDS: CALCIUM CARBONATE 500 MG (TUMS) TAB.CHEW PO PRN (21:45)
[2017-03-16 23:55] VITALS: BP 108/59
[2017-03-17] MEDS: RT-ALBUTEROL/IPRATROPIUM 3 ML (DUONEB) VIAL INH SCH ×6 (01:21→22:28)
[2017-03-17] MEDS: ACETAMINOPHEN 500 MG TAB (TYLENOL) PO SCH ×3 (05:39→21:46)
[2017-03-17] MEDS: DOXYCYCLINE 100 MG (VIBRAMYCIN) TABLET PO SCH ×2 (05:39→17:20)
[2017-03-17] MEDS: guaiFENesin/DM (ROBITUSSIN DM) 10 ML UDC PO PRN ×2 (05:41→17:21)
[2017-03-17 06:08] LABS: BASOPHILS # (AUTO) 0.1 10^3/uL (0.0-0.1); BASOPHILS % (AUTO) 0 % (0-10); EOSINOPHILS # (AUTO) 0.5 10^3/uL (0.0-0.3); EOSINOPHILS % (AUTO) 4 % (0-10); HEMATOCRIT 33 % (40-54); HEMOGLOBIN 11.1 G/DL (13.3-17.7); LYMPHOCYTES % (AUTO) 24 % (12-44); MEAN CORPUSCULAR HEMOGLOBIN 33 PG (25-34); MEAN CORPUSCULAR HGB CONC 34 G/DL (32-36); MEAN CORPUSCULAR VOLUME 98 FL (80-99); MEAN PLATELET VOLUME 9.8 FL (7.4-10.4); MONOCYTES # (AUTO) 1.1 X 10^3 (0.0-1.0); MONOCYTES % (AUTO) 9 % (0-12); NEUTROPHILS # (AUTO) 7.9 X 10^3 (1.8-7.8); NEUTROPHILS % (AUTO) 63 % (42-75); PLATELET COUNT 316 10^3/uL (130-400); RED BLOOD COUNT 3.35 10^6/uL (4.35-5.85); RED CELL DISTRIBUTION WIDTH 13.7 % (10.0-14.5); WHITE BLOOD COUNT 12.5 10^3/uL (4.3-11.0)
[2017-03-17 06:37] LABS: ALANINE AMINOTRANSFERASE 48 U/L (0-55); ALBUMIN 3.2 GM/DL (3.2-4.5); ALKALINE PHOSPHATASE 70 U/L (40-136); BILIRUBIN,TOTAL 0.4 MG/DL (0.1-1.0); BUN/CREATININE RATIO 15; CARBON DIOXIDE 24 MMOL/L (21-32); CHLORIDE 105 MMOL/L (98-107); CREATININE SERUM 1.06 MG/DL (0.60-1.30); GFR ESTIMATED > 60; GLUCOSE 93 MG/DL (70-105); MAGNESIUM 1.9 MG/DL (1.8-2.4); PHOSPHORUS 3.8 MG/DL (2.3-4.7); POTASSIUM 3.6 MMOL/L (3.6-5.0); SODIUM 141 MMOL/L (135-145); TOTAL PROTEIN 6.4 GM/DL (6.4-8.2)
[2017-03-17] MEDS: ADVAIR HFA 115/21 MCG INHALER 8 GM IH SCH ×2 (06:58→19:15)
--- NOTE | 2017-03-17 07:23 | Pulmonary Progress Note ---
Subjective Time Seen by Provider: 07:23 Subjective/Events-last exam Pt still has sob and hypoxia with exertion. Exam Exam Vital Signs Date Time Temp Pulse Resp B/P (MAP) Pulse Ox O2 Delivery O2 Flow Rate FiO2 03/17/17 06:55 94 Nasal Cannula 3.00 03/17/17 01:22 94 Nasal Cannula 3.00 03/16/17 23:55 97.8 84 20 108/59 (75) 97 Nasal Cannula 3.00 03/16/17 21:21 96 Nasal Cannula 3.00 03/16/17 20:00 High Flow N/C 3.00 03/16/17 16:40 98.9 93 20 113/67 (82) 94 High Flow N/C 3.00 03/16/17 14:50 95 Nasal Cannula 3.00 03/16/17 10:31 95 Nasal Cannula 3.50 03/16/17 08:00 99.0 103 18 116/67 (83) 94 High Flow N/C 8.00 03/16/17 08:00 95 Nasal Cannula 3.50 I & O 03/17/17 07:00 Intake Total 4220 ml Balance 4220 ml General Appearance: No Apparent Distress, Anxious HEENT: Pharynx Normal, Other (conjunctiva normal bilaterally no evidence for oral inflammation and erythema etc.) Neck: Normal Inspection Respiratory: Other (table by basilar rales no wheezing noted today.) Cardiovascular: Regular Rate, Rhythm, No Edema, No Gallop, No JVD, No Murmur, Normal Peripheral Pulses Capillary Refill: Less Than 3 Seconds Gastrointestinal: normal bowel sounds, non tender, soft Extremity: Non Tender, No Calf Tenderness Neurologic/Psychiatric: Alert, Oriented x3 Skin: Other (coalescing areas of erythema on chest and back are noted with superficial desquamation on the back. No vesicles are noted. There is no pain to palpation and no palm or sole involvement.) Lymphatic: No Adenopathy Results Lab Laboratory Tests 03/16/17 04:38 03/17/17 05:42 Assessment/Plan Assessment/Plan Acute respiratory distress this AM -repeat PA/LAT CXR Pneumonia with acute bronchitis and MRSA -SVNs to Q 4 and Q2 PRN - Vanco , Zosyn were D/C on Friday secondary to rash. -Will continue to monitor and check CXR. -Change Rocephin to Zyvox PO, and Omnicef -Prednisone taper Depression/anxiety -Increase activity -Pt/OT Weakness/debility -PT/OT Tobacco use r/o COPD -education -Check PFT as out patient Obesity with probable JOYCELYN -PT will need out patient PSG and work up increase activity, PT/OT 232 Clinical Quality Measures DVT/VTE Risk/Contraindication: Risk Factor Score Per Nursin RFS Level Per Nursing on Admit: 3=High Pneumonia: Pseudomonal Risk: COPD TEJA ADAMS DO Mar 17, 2017 07:23
[2017-03-17] MEDS: DOCUSATE SODIUM 100 MG (COLACE) CAP PO SCH ×2 (07:48→21:46)
[2017-03-17] MEDS: LIDOCAINE (LIDODERM) 5% PATCH TOP SCH (07:50)
[2017-03-17 08:00] VITALS: BP 104/58
--- NOTE | 2017-03-17 08:27 | Diagnostic Imaging Report ---
INDICATION: Pneumonia. TIME OF EXAM: 8:08 AM Comparison is made with prior study from 03/14/2017. FINDINGS: The heart size is normal. There has been partial clearing of the infiltrate in the left upper lobe and right lower lobe since examination 3 days earlier. No new infiltrate is seen. No effusion or pneumothorax is identified. IMPRESSION: Improved aeration to both lungs when compared with examination from 3 days earlier. Dictated by: Dictated on workstation # [id number]
[2017-03-17] MEDS: NICOTINE 21 MG (NICODERM) PATCH TD SCH (08:58)
[2017-03-17] MEDS: FAMOTIDINE 20 MG (PEPCID) TABLET PO SCH ×2 (08:58→20:35)
[2017-03-17] MEDS: risperiDONE 1 MG (RisperDAL) TAB PO SCH ×2 (08:58→20:35)
[2017-03-17] MEDS: buPROPion SR 150 MG (WELLBUTRIN SR) TAB PO SCH ×2 (08:58→20:35)
[2017-03-17] MEDS: CEFDINIR 300 MG (OMNICEF) CAP PO SCH ×2 (08:58→20:35)
[2017-03-17] MEDS: LINEZOLID (ZYVOX) 600 MG TAB PO SCH ×2 (08:58→20:35)
[2017-03-17] MEDS: hydrOXYzine (ATARAX) 10 MG TAB PO PRN ×3 (08:58→20:35)
[2017-03-17] MEDS: ALPRAZolam 0.25 MG (XANAX) TAB PO SCH ×2 (08:58→20:35)
[2017-03-17] MEDS: predniSONE 10 MG TAB PO SCH (08:59)
--- NOTE | 2017-03-17 14:55 | Progress Note-Hospitalist ---
Standard Progress Note Progress Notes/Assess & Plan Date Seen 03/17/17 Time Seen by Provider: 14:51 Diagnosis Dyspnea/hypoxia Subsequent respiratory failure and intubation Tobaccoism History and body habitus suggesting sleep apnea Bibasilar atelectasis/early pneumonitis Assess & Plan/Chief Complaint All vital signs are improved. The patient is comfortable in bed. His rash is fading. He still exhibits anxiety about perceived tightness in his chest. Occupational therapy gives a good report and has discontinued their consultation efforts. SaO2 is on 3 L have been running in the 95-97 percent range. Physical exam: The patient is sitting up in bed and visiting with family. He is not tachypneic. Lungs are clear to auscultation. CV is regular without murmur. Extremities show no pedal edema. Impression: Resolving respiratory failure. Plan: Respiratory therapy to stop O2 and record SaO2 on room air. Labs Laboratory Tests 03/16/17 04:38 03/17/17 05:42 LUDY OLIVA MD Mar 17, 2017 14:55
[2017-03-17 16:00] VITALS: BP 121/69
[2017-03-17] MEDS: CALCIUM CARBONATE 500 MG (TUMS) TAB.CHEW PO PRN (17:20)
[2017-03-18 00:06] VITALS: BP 102/52
[2017-03-18] MEDS: RT-ALBUTEROL/IPRATROPIUM 3 ML (DUONEB) VIAL INH SCH ×3 (02:31→11:45)
[2017-03-18 06:09] LABS: BASOPHILS # (AUTO) 0.1 10^3/uL (0.0-0.1); BASOPHILS % (AUTO) 1 % (0-10); EOSINOPHILS # (AUTO) 0.5 10^3/uL (0.0-0.3); EOSINOPHILS % (AUTO) 4 % (0-10); HEMATOCRIT 33 % (40-54); HEMOGLOBIN 10.9 G/DL (13.3-17.7); LYMPHOCYTES # (AUTO) 3.4 X 10^3 (1.0-4.0); LYMPHOCYTES % (AUTO) 32 % (12-44); MEAN CORPUSCULAR HEMOGLOBIN 32 PG (25-34); MEAN CORPUSCULAR HGB CONC 33 G/DL (32-36); MEAN CORPUSCULAR VOLUME 98 FL (80-99); MEAN PLATELET VOLUME 9.7 FL (7.4-10.4); MONOCYTES % (AUTO) 9 % (0-12); NEUTROPHILS # (AUTO) 5.8 X 10^3 (1.8-7.8); NEUTROPHILS % (AUTO) 54 % (42-75); PLATELET COUNT 345 10^3/uL (130-400); RED BLOOD COUNT 3.37 10^6/uL (4.35-5.85); RED CELL DISTRIBUTION WIDTH 13.6 % (10.0-14.5); WHITE BLOOD COUNT 10.7 10^3/uL (4.3-11.0)
[2017-03-18] MEDS: ACETAMINOPHEN 500 MG TAB (TYLENOL) PO SCH ×2 (06:16→13:20)
[2017-03-18] MEDS: DOXYCYCLINE 100 MG (VIBRAMYCIN) TABLET PO SCH (06:16)
[2017-03-18 06:29] LABS: ALANINE AMINOTRANSFERASE 43 U/L (0-55); ALBUMIN 3.1 GM/DL (3.2-4.5); ALKALINE PHOSPHATASE 62 U/L (40-136); BILIRUBIN,TOTAL 0.4 MG/DL (0.1-1.0); BUN/CREATININE RATIO 11; CALCIUM 8.8 MG/DL (8.5-10.1); CARBON DIOXIDE 26 MMOL/L (21-32); CHLORIDE 105 MMOL/L (98-107); CREATININE SERUM 1.09 MG/DL (0.60-1.30); GFR ESTIMATED > 60; GLUCOSE 89 MG/DL (70-105); MAGNESIUM 1.6 MG/DL (1.8-2.4); PHOSPHORUS 3.8 MG/DL (2.3-4.7); POTASSIUM 3.3 MMOL/L (3.6-5.0); SODIUM 140 MMOL/L (135-145); TOTAL PROTEIN 5.9 GM/DL (6.4-8.2)
[2017-03-18] MEDS: ADVAIR HFA 115/21 MCG INHALER 8 GM IH SCH (06:51)
--- NOTE | 2017-03-18 07:25 | Pulmonary Progress Note ---
Subjective Time Seen by Provider: 07:25 Exam Exam Vital Signs Date Time Temp Pulse Resp B/P (MAP) Pulse Ox O2 Delivery O2 Flow Rate FiO2 03/18/17 06:10 93 Room Air 03/18/17 02:32 91 Room Air 03/18/17 00:06 97.6 88 18 102/52 (69) 93 Room Air 03/17/17 22:29 92 Room Air 03/17/17 20:00 Room Air 03/17/17 19:25 95 3.00 03/17/17 19:16 94 OxyMask 03/17/17 16:00 99.3 98 18 121/69 (86) 96 High Flow N/C 3.00 03/17/17 11:29 95 Nasal Cannula 3.00 03/17/17 08:00 94 High Flow N/C 3.00 03/17/17 08:00 98.4 93 20 104/58 (73) 94 High Flow N/C 3.00 I & O 03/18/17 07:00 Intake Total 2100 ml Balance 2100 ml General Appearance: No Apparent Distress, Anxious HEENT: Pharynx Normal, Other (conjunctiva normal bilaterally no evidence for oral inflammation and erythema etc.) Neck: Normal Inspection Respiratory: Other (table by basilar rales no wheezing noted today.) Cardiovascular: Regular Rate, Rhythm, No Edema, No Gallop, No JVD, No Murmur, Normal Peripheral Pulses Capillary Refill: Less Than 3 Seconds Gastrointestinal: normal bowel sounds, non tender, soft Extremity: Non Tender, No Calf Tenderness Neurologic/Psychiatric: Alert, Oriented x3 Skin: Other (coalescing areas of erythema on chest and back are noted with superficial desquamation on the back. No vesicles are noted. There is no pain to palpation and no palm or sole involvement.) Lymphatic: No Adenopathy Results Lab Laboratory Tests 03/17/17 05:42 03/18/17 05:32 Assessment/Plan Assessment/Plan Acute respiratory distress this AM -PA/LAT CXR Pneumonia with acute bronchitis and MRSA -SVNs to Q 4 and Q2 PRN - Vanco , Zosyn were D/C on Friday secondary to rash. -Will continue to monitor and check CXR. - Zyvox PO, and Omnicef -Prednisone taper Depression/anxiety -Increase activity -Pt/OT Weakness/debility -PT/OT Tobacco use r/o COPD -education -Check PFT as out patient Obesity with probable JOYCELYN -PT will need out patient PSG and work up increase activity, PT/OT 232 Clinical Quality Measures DVT/VTE Risk/Contraindication: Risk Factor Score Per Nursin RFS Level Per Nursing on Admit: 3=High Pneumonia: Pseudomonal Risk: COPD TEJA ADAMS DO Mar 18, 2017 07:25
[2017-03-18 08:00] VITALS: BP 102/63
[2017-03-18] MEDS: CEFDINIR 300 MG (OMNICEF) CAP PO SCH (08:46)
[2017-03-18] MEDS: ALPRAZolam 0.25 MG (XANAX) TAB PO SCH (08:47)
[2017-03-18] MEDS: FAMOTIDINE 20 MG (PEPCID) TABLET PO SCH (08:47)
[2017-03-18] MEDS: LINEZOLID (ZYVOX) 600 MG TAB PO SCH (08:47)
[2017-03-18] MEDS: buPROPion SR 150 MG (WELLBUTRIN SR) TAB PO SCH (08:47)
[2017-03-18] MEDS: predniSONE 10 MG TAB PO SCH (08:47)
[2017-03-18] MEDS: risperiDONE 1 MG (RisperDAL) TAB PO SCH (08:47)
[2017-03-18] MEDS: NICOTINE 21 MG (NICODERM) PATCH TD SCH (08:47)
[2017-03-18] MEDS: LIDOCAINE (LIDODERM) 5% PATCH TOP SCH (08:48)
[2017-03-18] MEDS: DOCUSATE SODIUM 100 MG (COLACE) CAP PO SCH (08:48)
--- NOTE | 2017-03-18 13:29 | Discharge Instructions ---
Discharge Instructions Patient Instructions Patient Instructions: Increase physical activity as tolerated. It may take 2 months or more to attain your previous level of exercise tolerance. Return to The Hospital For: Relapse in symptoms Activity & Diet Discharge Diet: No Restrictions, Eat Small Frequent Meals Activity as Tolerated: Yes LUDY OLIVA MD Mar 18, 2017 13:29
[2017-03-18] MEDS ORDERED: RT-ALBUINH IH (13:53)
[2017-03-18] MEDS ORDERED: IPRA3AMP INH (13:53)
[2017-03-18 14:29] VITALS: BP 102/63
== END 2017-03-18 14:31 | disposition home or self-care (01) | DRG 871 ==
LOC: EDUNIT# 21:47 → ER 21:48 → ICU 22:40 → 4TH 03-07 14:45
PROVIDERS: ADMIT Internal Medicine; ATTEND Internal Medicine
PROC: 5A1945Z Respiratory Ventilation, 24-96 Consecutive Hours (ICD-10-PCS; principal; 2017-03-04)
DX: A41.02 Sepsis due to Methicillin resistant Staphylococcus aureus (principal); A41.3 Sepsis due to Hemophilus influenzae; J96.00 Acute respiratory failure, unspecified whether with hypoxia or hypercapnia; J15.212 Pneumonia due to Methicillin resistant Staphylococcus aureus; J14 Pneumonia due to Hemophilus influenzae; J20.9 Acute bronchitis, unspecified; L27.0 Generalized skin eruption due to drugs and medicaments taken internally; E66.9 Obesity, unspecified; F41.1 Generalized anxiety disorder; G47.33 Obstructive sleep apnea (adult) (pediatric); F32.9 Major depressive disorder, single episode, unspecified; R73.9 Hyperglycemia, unspecified; D50.9 Iron deficiency anemia, unspecified; K21.9 Gastro-esophageal reflux disease without esophagitis; F17.210 Nicotine dependence, cigarettes, uncomplicated; Z68.34 Body mass index [BMI] 34.0-34.9, adult; T36.8X5A Adverse effect of other systemic antibiotics, initial encounter; T38.0X5A Adverse effect of glucocorticoids and synthetic analogues, initial encounter; T36.0X5A Adverse effect of penicillins, initial encounter
CPT/HCPCS: 36415; 71045; 71046; 71275; 80048; 80053; 80202; 81000; 82040; 82805; 82962; 83605; 83735; 83880; 84100; 84145; 84484; 85007; 85025; 85027; 85610; 87040; 87070; 87077; 87186; 87205; 87430; 87449; 87804; 87899; 94002; 94003; 94640; 94660; 94760; 94761; 94799; 96360

== ENCOUNTER 2017-03-19 22:52 | Inpatient (IN) | payer OTHER ==
[~2017-03-19] VITALS: Ht 177.8 cm; Wt 88.9 kg
[~2017-03-19 22:52] MED LIST changes: +ACET-2267 PO; +ALBU2.5V4 NEB; +FAMO-119 PO; +IPRA3AMP INH
[2017-03-19] MEDS ORDERED: KETOROLAC 30 MG/ML VIAL IVP STA (23:33)
[2017-03-19] MEDS ORDERED: ASPIRIN 81 MG CHEW (CHILDREN'S ASA) PO STA (23:33)
[2017-03-19] MEDS ORDERED: ASPIRIN 81 MG CHEW (CHILDREN'S ASA) ONE (23:35)
[2017-03-19] MEDS ORDERED: NITROGLYCERIN 0.4 MG SL TABS BTL 25'S SL ONE (23:35)
[2017-03-19] MEDS ORDERED: KETOROLAC 30 MG/ML VIAL ONE (23:35)
[2017-03-19] MEDS ORDERED: NITROGLYCERIN 0.4 MG SL TABS BTL 25'S SL PRN (23:45)
[2017-03-20] VITALS (11 sets, daily range): BP systolic 97–134; BP diastolic 57–82
[2017-03-20 00:09] LABS: BASOPHILS % (AUTO) 0 % (0-10); EOSINOPHILS # (AUTO) 0.3 10^3/uL (0.0-0.3); EOSINOPHILS % (AUTO) 2 % (0-10); HEMATOCRIT 36 % (40-54); HEMOGLOBIN 12.3 G/DL (13.3-17.7); LYMPHOCYTES # (AUTO) 2.4 X 10^3 (1.0-4.0); LYMPHOCYTES % (AUTO) 20 % (12-44); MEAN CORPUSCULAR HEMOGLOBIN 33 PG (25-34); MEAN CORPUSCULAR HGB CONC 34 G/DL (32-36); MEAN CORPUSCULAR VOLUME 97 FL (80-99); MEAN PLATELET VOLUME 9.3 FL (7.4-10.4); MONOCYTES # (AUTO) 0.6 X 10^3 (0.0-1.0); MONOCYTES % (AUTO) 5 % (0-12); NEUTROPHILS # (AUTO) 8.9 X 10^3 (1.8-7.8); NEUTROPHILS % (AUTO) 72 % (42-75); PLATELET COUNT 433 10^3/uL (130-400); RED BLOOD COUNT 3.74 10^6/uL (4.35-5.85); RED CELL DISTRIBUTION WIDTH 13.9 % (10.0-14.5); WHITE BLOOD COUNT 12.3 10^3/uL (4.3-11.0)
[2017-03-20 00:18] LABS: PROTHROMBIN TIME PATIENT 12.8 SEC (12.2-14.7)
[2017-03-20] MEDS ORDERED: IOHEXOL 350 MG/ML 150 ML (OMNIPAQUE 350) VIAL IV ONE (00:30)
[2017-03-20] MEDS ORDERED: NS 100 ML (IVPB) BAG IV ONE (00:30)
[2017-03-20 00:42] LABS: ALANINE AMINOTRANSFERASE 45 U/L (0-55); ALBUMIN 3.5 GM/DL (3.2-4.5); ALKALINE PHOSPHATASE 72 U/L (40-136); BILIRUBIN,TOTAL 0.5 MG/DL (0.1-1.0); BUN/CREATININE RATIO 10; CALCIUM 10.7 MG/DL (8.5-10.1); CARBON DIOXIDE 25 MMOL/L (21-32); CHLORIDE 103 MMOL/L (98-107); CREATINE KINASE 93 U/L (30-200); CREATININE SERUM 1.06 MG/DL (0.60-1.30); GFR ESTIMATED > 60; GLUCOSE 105 MG/DL (70-105); MAGNESIUM 1.7 MG/DL (1.8-2.4); POTASSIUM 3.8 MMOL/L (3.6-5.0); SODIUM 141 MMOL/L (135-145); TOTAL PROTEIN 6.8 GM/DL (6.4-8.2)
[2017-03-20 00:53] LABS: CREATINE KINASE MB 4.9 NG/ML (<6.6)
[2017-03-20] MEDS ORDERED: PIPERACILLIN/TAZO 4.5 GM VIAL (ZOSYN) IV ONE (01:30)
[2017-03-20] MEDS ORDERED: methylPREDNISolone 125 MG (Solu-MEDROL) VIAL ONE (02:46)
[2017-03-20] MEDS ORDERED: methylPREDNISolone 125 MG (Solu-MEDROL) VIAL IVP ONE (03:00)
[2017-03-20] MEDS ORDERED: LORazepam INJ 2 MG/ML (ATIVAN) VIAL IV PRN (03:45)
[2017-03-20] MEDS ORDERED: ACETAMINOPHEN 500 MG TAB (TYLENOL) PO PRN (03:45)
[2017-03-20] MEDS ORDERED: BENZONATATE 100 MG (TESSALON) CAPSULE PO SCH (03:45)
[2017-03-20] MEDS ORDERED: PROMETHAZINE/ CODEINE SYRUP 5 ML UDC PO PRN (03:45)
[2017-03-20] MEDS ORDERED: fentaNYL INJECTION 100 MCG/2 ML AMP IV PRN (03:45)
[2017-03-20] MEDS ORDERED: AZITHROMYCIN INJECTION 500 MG in NS (IVPB) 250 ML IV SCH (03:45)
[2017-03-20] MEDS ORDERED: IBUPROFEN 800 MG (MOTRIN) TAB PO PRN (03:45)
[2017-03-20] MEDS ORDERED: NS (IVPB) 250 ML ONE (03:47)
[2017-03-20] MEDS ORDERED: AZITHROMYCIN 500 MG (ZITHROMAX) VIAL ONE (03:48)
[2017-03-20 05:14] LABS: BASOPHILS % (AUTO) 0 % (0-10); HEMATOCRIT 36 % (40-54); LYMPHOCYTES # (AUTO) 1.1 X 10^3 (1.0-4.0); LYMPHOCYTES % (AUTO) 9 % (12-44); MEAN CORPUSCULAR HEMOGLOBIN 33 PG (25-34); MEAN CORPUSCULAR HGB CONC 34 G/DL (32-36); MEAN CORPUSCULAR VOLUME 98 FL (80-99); MEAN PLATELET VOLUME 9.3 FL (7.4-10.4); MONOCYTES # (AUTO) 0.4 X 10^3 (0.0-1.0); MONOCYTES % (AUTO) 3 % (0-12); NEUTROPHILS # (AUTO) 11.2 X 10^3 (1.8-7.8); PLATELET COUNT 396 10^3/uL (130-400); RED BLOOD COUNT 3.63 10^6/uL (4.35-5.85); WHITE BLOOD COUNT 12.9 10^3/uL (4.3-11.0)
[2017-03-20 05:17] LABS: EOSINOPHILS # (AUTO) 0.3 10^3/uL (0.0-0.3); EOSINOPHILS % (AUTO) 3 % (0-10); NEUTROPHILS % (AUTO) 86 % (42-75)
[2017-03-20 05:24] LABS: ALANINE AMINOTRANSFERASE 44 U/L (0-55); ALBUMIN 3.2 GM/DL (3.2-4.5); ALKALINE PHOSPHATASE 75 U/L (40-136); BILIRUBIN,TOTAL 0.4 MG/DL (0.1-1.0); BUN/CREATININE RATIO 11; CARBON DIOXIDE 24 MMOL/L (21-32); CHLORIDE 103 MMOL/L (98-107); CREATININE SERUM 1.08 MG/DL (0.60-1.30); GFR ESTIMATED > 60; GLUCOSE 115 MG/DL (70-105); MAGNESIUM 1.7 MG/DL (1.8-2.4); POTASSIUM 4.2 MMOL/L (3.6-5.0); SODIUM 139 MMOL/L (135-145); TOTAL PROTEIN 6.5 GM/DL (6.4-8.2)
--- NOTE | 2017-03-20 05:36 | Diagnostic Imaging Report ---
INDICATION: Shortness of air COMPARISON: 03/17/2017 FINDINGS: Single frontal view of the chest demonstrates normal heart size and pulmonary vascularity. The lungs are well aerated and clear. No large pleural effusion or pneumothorax is seen. The visualized osseous structures show no acute abnormalities. IMPRESSION: 1. No acute cardiopulmonary process. Dictated by: Dictated on workstation # [id number]
--- NOTE | 2017-03-20 06:24 | Diagnostic Imaging Report ---
PROCEDURE: CT angiography of the chest with contrast. TECHNIQUE: Multiple contiguous axial images were obtained through the chest after uneventful bolus administration of intravenous contrast. Reconstructed CTA MIP acquisitions were also performed. INDICATION: Dyspnea Comparison is made to study of 03/11/2017. There is good opacification of pulmonary arteries without intraluminal filling defect. Thoracic aorta is also unremarkable in appearance. There is mild diffuse groundglass opacity in the lungs with reticulonodular pattern involving the lower lobes. The opacity seen in the lower lobes on the previous study are significantly improved. There is no significant pleural or pericardial fluid. Mildly prominent mediastinal lymph nodes have remained stable and may be reactive in nature. Upper abdominal sections reveal an approximately 0.5 cm calculus in the midportion of the right kidney without hydronephrosis. IMPRESSION: No CTA evidence of pulmonary embolism or other acute abnormality in the thorax. There is mild residual reticulonodular and groundglass opacities in the lungs, however, the pulmonary opacity seen in the lower lobes on the previous study have improved significantly. Dictated by: Dictated on workstation # [id number]
--- NOTE | 2017-03-20 07:17 | Pulmonary Consultation ---
History of Present Illness History of Present Illness Date of Consultation 03/20/17 07:13 Date of Admission Allergies and Home Medications Allergies Coded Allergies: ciprofloxacin (Unverified Allergy, Mild, 08/05/08) levofloxacin (Unverified Allergy, Mild, 08/05/08) Home Medications Acetaminophen 500 Mg Tablet, 1,000 MG PO DAILY, (Reported) Acetaminophen 500 Mg Tablet, 1,000 MG PO Q6H PRN for PAIN-MILD, (Reported) Albuterol Sulfate 8.5 Gm Hfa.aer.ad, 1-2 PUFF IH Q4H PRN for SHORTNESS OF BREATH , (Reported) Albuterol Sulfate 2.5 Mg/3 Ml Vial.neb, 2.5 MG NEB Q6H PRN for SHORTNESS OF BREATH, (Reported) Albuterol Sulfate 1 Puff Puff, 2 PUFF IH Q4H, #1 1 PUFF = 90 MCG Prescribed by: LUDY OLIVA on 03/18/17 1353 Brompheniram/Phenylephrine/Dm 118 Ml Solution, 45 ML PO HS PRN for COUGH OR CONGESTION, (Reported) Diphenhydramine HCl 25 Mg Capsule, 50 MG PO HS PRN for ALLERGIES, (Reported) TAKES 2 (25 MG) CAPS Famotidine 20 Mg Tablet, 20 MG PO BID, (Reported) Ipratropium/Albuterol Sulfate 3 Ml Ampul.neb, 3 ML INH RTQ4HR, #100 Prescribed by: LUDY OLIVA on 03/18/17 1353 Multivits-Minerals/FA/Lycopene 1 Each Tablet, 1 TAB PO DAILY, (Reported) Past Zzcwbos-Nzsugs-Xvyeea Hx Patient Social History Alcohol Use: Denies Use Recreational Drug Use: No Smoking Status: Current Everyday Smoker Type Used: Cigarettes 2nd Hand Smoke Exposure: Yes Recent Foreign Travel: No Contact w/Someone Who Travel: No Recent Infectious Disease Expo: No Recent Hopitalizations: Yes (SEPSIS PNEUMONIA) Immunizations Up To Date Tetanus Booster (TDap): Unknown PED Vaccines UTD: No Date of Pneumonia Vaccine: Mar 04, 2015 Date of Influenza Vaccine: Mar 05, 2017 Seasonal Allergies Seasonal Allergies: Yes Surgeries History of Surgeries: Yes (LITHOTRIPSY) Surgeries: Appendectomy Respiratory History of Respiratory Disorde: Yes (Resp infection twice yearly, tobaccoism) Respiratory Disorders: Chronic Bronchitis Cardiovascular History of Cardiac Disorders: No Neurological History of Neurological Disord: No Reproductive System Hx Reproductive Disorders: No Genitourinary History of Genitourinary Disor: Yes Genitourinary Disorders: Kidney Stones Gastrointestinal History of Gastrointestinal Di: Yes Gastrointestinal Disorders: Gastroesophageal Reflux Musculoskeletal History of Musculoskeletal Dis: Yes (HERNIATED DISK) Musculoskeletal Disorders: Chronic Back Pain Endocrine History of Endocrine Disorders: No HEENT History of HEENT Disorders: No Cancer History of Cancer: No Psychosocial History of Psychiatric Problem: Yes Behavioral Health Disorders: Sleep Difficulties, Anxiety Integumentary History of Skin or Integumenta: Yes (INTERMITTENT RASH (POST CIPRO REACTION)) Blood Transfusions History of Blood Disorders: No Family Medical History Significant Family History: No Pertinent Family Hx Family Medial History: Dementia 19 MOTHER, Onset:60 years & older FH: depression 19 MOTHER, Onset:Unknown Thyroid disease 19 MOTHER (HYPOTHYROID) Exam Exam Vital Signs Date Time Temp Pulse Resp B/P (MAP) Pulse Ox O2 Delivery O2 Flow Rate FiO2 03/20/17 06:00 87 97/57 (70) 93 Nasal Cannula 3.00 03/20/17 05:00 94 124/80 (95) 98 Nasal Cannula 3.00 03/20/17 04:30 94 98 Nasal Cannula 3.00 03/20/17 04:00 97 Nasal Cannula 3.00 03/20/17 04:00 93 97 03/20/17 04:00 97.8 97 120/78 (92) 97 Nasal Cannula 3.00 03/20/17 03:45 96 96 Nasal Cannula 3.00 03/20/17 03:33 93 03/20/17 03:30 95 95 Nasal Cannula 3.00 03/20/17 03:23 97 Nasal Cannula 3.00 03/20/17 03:15 95 134/78 (96) 94 Nasal Cannula 3.00 03/20/17 02:51 99.4 107 20 95 Nasal Cannula 03/19/17 23:32 99.4 100 20 144/81 (102) 95 Room Air 03/19/17 23:32 95 Nasal Cannula 2.00 I & O 03/20/17 07:00 Intake Total 150 ml Balance 150 ml Capillary Refill: Less Than 3 Seconds Results Lab Laboratory Tests 03/19/17 23:58 03/20/17 04:30 Assessment/Plan Assessment/Plan resolving pneumonia -recent admission for MRSA - doubt active infection -Will change to PO Zyvox for now Acute on chronic respiratory failure with COPDAE -Change to prednisone taper -advair -SVNS Anxiety -add xanax and risperadol Obesity with probable JOYCELYN -pt needs PSG -Check ABG to see if pt would qualify for vent to mask Will transfer to 4th floor. 255 Clinical Quality Measures AMI/AHF: ASA po Prior to arrival: No DVT/VTE Risk/Contraindication: Risk Factor Score Per Nursin RFS Level Per Nursing on Admit: 3=High TEJA ADAMS DO Mar 20, 2017 07:17
[2017-03-20] MEDS ORDERED: PIPERACILLIN SODIUM/TAZOBACTAM 4.5 GM in D5W 100 ML IVPB 100 ML IV SCH (07:30)
[2017-03-20] MEDS: RT-ADVAIR HFA 115/21 MCG PER PUFF IH SCH ×2 (07:35→19:07)
[2017-03-20] MEDS: RT-ALBUTEROL/IPRATROPIUM 3 ML (DUONEB) VIAL INH SCH ×5 (07:36→21:50)
[2017-03-20] MEDS: predniSONE 10 MG TAB PO SCH (08:08)
[2017-03-20] MEDS: risperiDONE 0.25 MG (RisperDAL) TAB PO SCH ×2 (08:08→20:10)
[2017-03-20] MEDS: LINEZOLID (ZYVOX) 600 MG TAB PO SCH ×2 (08:08→20:10)
[2017-03-20] MEDS: BENZONATATE 100 MG (TESSALON) CAPSULE PO SCH ×2 (08:16→17:10)
[2017-03-20] MEDS ORDERED: methylPREDNISolone 125 MG (Solu-MEDROL) VIAL IVP SCH (09:00)
--- NOTE | 2017-03-20 09:32 | History & Physical-Hospitalist ---
HPI History of Present Illness: HPI/Chief Complaint CC: Dyspnea HPI: This is a 46-year-old white male that had a 2 week hospital stay recently for pneumonia that originally required ventilator then had an allergic reaction to floor quinolone but finally was able to be weaned off oxygen and subsequently discharged by Dr. Garcia's earlier this week but then began having cough and shortness of breath began having panic attacks he presented to the ER obtained CT angiogram at that time to rule out PE which appeared to still have pneumonitis on that imaging scan. He was placed on IV steroids and empiric antibiotics which have been discontinued and Zyvox has been initiated by Dr. Blackwell due to MRSA pneumonia recently. At this current time he is feeling much better than when he is in a coughing fit he begins having a panic attack and the nurses have helped him work through that but I also did give anxiolytic last night which has helped him tremendously. He would prefer not to have to be on anything all the time for his anxiety but he appears to be much improved and he has continued smoking cessation since he was admitted to the hospital the first time. Source: patient Exam Limitations: no limitations Date Seen 03/20/17 Time Seen by Provider: 09:00 Attending Physician Adelia Hernandez DO PCP No,Local Physician Referring Physician Date of Admission Mar 20, 2017 at 01:10 Home Medications & Allergies Home Medications Reviewed patient Home Medication Reconciliation Form Allergies Allergies Coded Allergies ciprofloxacin (Unverified Allergy, Mild, 08/05/08) levofloxacin (Unverified Allergy, Mild, 08/05/08) Past Aiohpaj-[id number]-Vlybxd Hx Patient Social History Marrital Status: Employed/Student: employed Alcohol Use: Denies Use Recreational Drug Use: No Smoking Status: Former Smoker (quit 2 weeks ago) Type Used: Cigarettes 2nd Hand Smoke Exposure: Yes Physical Abuse Screen: No Sexual Abuse: No Recent Foreign Travel: No Contact w/other who traveled: No Recent Hopitalizations: Yes (SEPSIS PNEUMONIA) Recent Infectious Disease Expo: No Immunizations Up To Date Tetanus Booster (TDap): Unknown Pediatric: No Date of Pneumonia Vaccine: Mar 04, 2015 Date of Influenza Vaccine: Mar 05, 2017 Seasonal Allergies Seasonal Allergies: Yes Surgeries Yes (LITHOTRIPSY) Appendectomy Respiratory Yes (Resp infection twice yearly, tobaccoism) COPD, Pneumonia Cardiovascular No Neurological No Reproductive System Hx Reproductive Disorders: No Genitourinary Yes Kidney Stones Gastrointestinal Yes Gastroesophageal Reflux Musculoskeletal Yes (HERNIATED DISK) Chronic Back Pain Endocrine History of Endocrine Disorders: No HEENT History of HEENT Disorders: No Cancer No Psychosocial History of Psychiatric Problem: Yes Behavioral Health Disorders: Sleep Difficulties, Anxiety Integumentary History of Skin or Integumenta: Yes (INTERMITTENT RASH (POST CIPRO REACTION)) Blood Transfusions History of Blood Disorders: No Family Medical History Significant Family History: No Pertinent Family Hx Family Hx: Dementia 19 MOTHER, Onset:60 years & older FH: depression 19 MOTHER, Onset:Unknown Thyroid disease 19 MOTHER (HYPOTHYROID) Review of Systems Constitutional: see HPI, dizziness EENTM: no symptoms reported Respiratory: cough, short of breath, wheezing Cardiovascular: no symptoms reported Gastrointestinal: no symptoms reported Genitourinary: no symptoms reported Musculoskeletal: no symptoms reported Skin: no symptoms reported Psychiatric/Neurological: No Symptoms Reported All Other Systems Reviewed Negative Unless Noted: Yes Physical Exam Physical Exam Vital Signs Vital Sign - Last 12Hours 03/19/17 23:32 Temp 99.4 Pulse 100 Resp 20 B/P (MAP) 144/81 (102) Pulse Ox 95 O2 Delivery Nasal Cannula O2 Flow Rate 2.00 Capillary Refill : Less Than 3 Seconds General Appearance: No Apparent Distress, WD/WN, Chronically ill Eyes: Bilateral Eye Normal Inspection, Bilateral Eye PERRL HEENT: PERRL/EOMI, Normal ENT Inspection, Pharynx Normal Neck: Full Range of Motion, Normal Inspection, Non Tender, Supple, Carotid Bruit Respiratory: Chest Non Tender, No Accessory Muscle Use, No Respiratory Distress , Crackles (subtle), Decreased Breath Sounds Cardiovascular: Regular Rate, Rhythm, No Edema, No Gallop, No JVD, No Murmur, Normal Peripheral Pulses Gastrointestinal: Normal Bowel Sounds, No Organomegaly, No Pulsatile Mass, Non Tender, Soft Back: Normal Inspection, No CVA Tenderness, No Vertebral Tenderness Extremity: Normal Capillary Refill, Normal Inspection, Normal Range of Motion, Non Tender, No Calf Tenderness, No Pedal Edema Neurologic/Psychiatric: Alert, Oriented x3, No Motor/Sensory Deficits, Normal Mood/Affect Skin: Normal Color, Warm/Dry Lymphatic: No Adenopathy Results Results/Procedures Lab Laboratory Tests 03/19/17 23:58 03/20/17 04:30 Assessment/Plan Admission Diagnosis Assessment: Residual MRSA pneumonia placed on Zyvox Severe COPD requiring IV steroids Anxiety and panic attacks Leukocytosis Previous smoker quit 2 weeks ago when admitted for VDRF Assessment and Plan Plan: Maintain Zyvox Transfer to floor Anxiolytics Biofeedback and meditation therapy for panic attacks Monitor closely Clinical Quality Measures AMI/AHF: ASA po Prior to arrival: No DVT/VTE Risk/Contraindication: Risk Factor Score Per Nursin RFS Level Per Nursing on Admit: 3=High ADELIA HERNANDEZ DO Mar 20, 2017 09:32
[2017-03-20 11:21] LABS: ABG BASE EXCESS 3.7 MMOL/L (-2.5-2.5); ABG OXYGEN SATURATION 97 % (94-100); ABG PCO2 39 MMHG (35-45); ABG PH 7.46 (7.37-7.43); ABG PO2 79 MMHG (79-93); ABG TCO2 28.6 MMOL/L (21.0-31.0)
[2017-03-20 11:22] LABS: ALLENS TEST YES-POS; INSPIRED O2 3L; PATIENT TEMP 98.7; VENTILATOR NO
--- NOTE | 2017-03-20 11:22 | Occ Therapy Progress Note ---
Therapy Progress Note 1110 Pt seen in room in ICU. He recently completed a course of occupational therapy in acute care and was discharged from OT a few days ago at independent to modified independent with all basic ADLs. He does not feel that he needs OT at this time so OT will be discontinued. If his status should change, though, OT would be glad to revisit his skilled needs. DC OT visit ARCADIO DAMIAN OT Mar 20, 2017 11:22
--- NOTE | 2017-03-20 11:36 | Physical Therapy Evaluation ---
PT Evaluation-General Medical Diagnosis Admission Date Mar 20, 2017 at 01:10 Medical Diagnosis: persistent pneumonia Onset Date: Mar 19, 2017 Therapy Diagnosis Therapy Diagnosis: debility Height/Weight Height (Feet): 5 Height (Inches): 10.00 Weight (Pounds): 196 Weight (Ounces): 0.0 Precautions Precautions/Isolations: Droplet Isolation, Standard Precautions Weight Bear Status Right Lower Extremity: Right Full Weight Bearing Left Lower Extremity: Left Full Weight Bearing Referral Physician: Rosalva Reason for Referral: Evaluation/Treatment Medical History Pertinent Medical History: GERD, Smoking Current History returned to ED 24 hours after dismissal due to SOA Reviewed History: Yes Social History Home: Single Level Current Living Status: Spouse Prior/Core FIM Prior Level of Function Functional [place] Measure 0=Not Assessed/NA 4=Minimal Assistance 1=Total Assistance 5=Supervision or Setup 2=Maximal Assistance 6=Modified [place] 3=Moderate Assistance 7=Complete [place] Bed Mobility: 7 Transfers (B,C,W/C) (FIM): 7 Gait: 7 Locomotion: 7 PT Evaluation-Current Subjective Patient agrees to PT. Pain Numeric Pain Scale: 0-No Pain Location: No Pain Reported Objective Patient Orientation: Normal For Age Problem Solving: Good Attachments: Oxygen (2L) ROM/Strength ROM Lower Extremities bilateral LE WNL Strength Lower Extremities bilateral LE WNL Integumentary/Posture Integumentary refer to nursing notes Bowel Incontinence: No Bladder Incontinence: No Neuromuscular (Tone, Coordination, Reflexes) WFL Sensory Vision: Wears Glasses Hearing: Functional Sensation Right Lower Extremit: Intact Sensation Left Lower Extremity: Intact Transfers Functional [place] Measure 0=Not Assessed/NA 4=Minimal Assistance 1=Total Assistance 5=Supervision or Setup 2=Maximal Assistance 6=Modified [place] 3=Moderate Assistance 7=Complete [place] Transfers (B, C, W/C) (FIM): 7 Scootin Rollin Supine to/from Sit: 7 Sit to/from Stand: 7 Gait Mode of Locomotion: Walk Anticipated Mode of Locomotion: Walk Gait (FIM): 7 Distance (FIM): 3=150 ft Distance: >600' Gait Level of Assist: 7 Gait Assistive Device: None Comments/Gait Description safe and functional Balance Sitting Static: Normal Sitting Dynamic: Normal Standing Static: Normal Standing Dynamic: Normal Assessment/Needs 46 y.o. male is currently at [facility] with all gross motor skills safely and does not require skilled therapy intervention. Rehab Potential: Good PT Plan Treatment/Plan Treatment Plan: Discontinue PT Treatment Plan: Other Treatment Duration: Mar 20, 2017 Frequency: 1 time per week Estimated Hrs Per Day: .25 hour per day Patient and/or Family Agrees t: Yes Time/GCodes Time In: 1115 Time Out: 1130 Total Billed Treatment Time: 15 Total Billed Treatment 1 visit EVLowC 15 min WESTON TARIQ PT Mar 20, 2017 11:36
[2017-03-20] MEDS: guaiFENesin (MUCINEX) 600 MG TAB PO SCH ×2 (12:39→20:10)
[2017-03-20] MEDS: ALPRAZolam 0.5 MG (XANAX) TAB PO PRN (20:10)
[2017-03-20] MEDS: ADVAIR HFA 115/21 MCG INHALER 8 GM IH SCH (21:50)
[2017-03-21] VITALS: BP 117/56
[2017-03-21] MEDS: BENZONATATE 100 MG (TESSALON) CAPSULE PO SCH ×2 (01:25→08:59)
[2017-03-21] MEDS: RT-ALBUTEROL/IPRATROPIUM 3 ML (DUONEB) VIAL INH SCH ×4 (01:43→14:07)
[2017-03-21 04:00] VITALS: BP 106/55
[2017-03-21] MEDS: predniSONE 10 MG TAB PO SCH (06:06)
[2017-03-21] MEDS: ADVAIR HFA 115/21 MCG INHALER 8 GM IH SCH (06:54)
--- NOTE | 2017-03-21 07:20 | Pulmonary Progress Note ---
Subjective Time Seen by Provider: 07:19 Subjective/Events-last exam No complications noted. Exam Exam Vital Signs Date Time Temp Pulse Resp B/P (MAP) Pulse Ox O2 Delivery O2 Flow Rate FiO2 03/21/17 06:56 95 Nasal Cannula 2.00 03/21/17 04:00 98.0 88 20 106/55 (72) 92 Nasal Cannula 1.50 03/21/17 01:44 97 Nasal Cannula 2.00 03/21/17 00:00 98.9 90 20 117/56 (76) 93 Nasal Cannula 1.50 03/20/17 21:52 93 Nasal Cannula 2.00 03/20/17 20:33 Nasal Cannula 2.00 03/20/17 19:50 98.9 99 18 110/61 (77) 96 Nasal Cannula 1.50 03/20/17 19:09 98 Nasal Cannula 2.00 03/20/17 16:09 98.1 110 20 121/69 (86) 93 Nasal Cannula 1.50 03/20/17 13:08 Nasal Cannula 2.00 03/20/17 12:00 98.8 121 20 106/64 (78) 95 Nasal Cannula 1.50 03/20/17 10:00 110 116/70 (85) 95 Nasal Cannula 2.00 03/20/17 09:00 Nasal Cannula 3.00 03/20/17 09:00 108 134/82 (99) 92 Nasal Cannula 2.00 03/20/17 08:18 98.1 101 20 121/76 (91) 91 Nasal Cannula 2.00 03/20/17 08:08 97 Nasal Cannula 3.00 03/20/17 07:45 Nasal Cannula 2.00 I & O 03/21/17 07:00 Intake Total 2750 ml Output Total 650 ml Balance 2100 ml General Appearance: No Apparent Distress, WD/WN, Chronically ill HEENT: PERRL/EOMI, Normal ENT Inspection, Pharynx Normal Neck: Full Range of Motion, Normal Inspection, Non Tender, Supple, Carotid Bruit Respiratory: Chest Non Tender, No Accessory Muscle Use, No Respiratory Distress , Crackles (subtle), Decreased Breath Sounds Cardiovascular: Regular Rate, Rhythm, No Edema, No Gallop, No JVD, No Murmur, Normal Peripheral Pulses Capillary Refill: Less Than 3 Seconds Extremity: Normal Capillary Refill, Normal Inspection, Normal Range of Motion, Non Tender, No Calf Tenderness, No Pedal Edema Neurologic/Psychiatric: Alert, Oriented x3, No Motor/Sensory Deficits, Normal Mood/Affect Skin: Normal Color, Warm/Dry Lymphatic: No Adenopathy Results Lab Laboratory Tests 03/19/17 23:58 03/20/17 04:30 Assessment/Plan Assessment/Plan resolving pneumonia -recent admission for MRSA - doubt active infection -D/C all Abx Acute on chronic respiratory failure with COPDAE -Continue prednisone taper -advair -SVNS Anxiety -add xanax and risperadol Obesity with probable JOYCELYN -pt needs PSG 232 Clinical Quality Measures AMI/AHF: ASA po Prior to arrival: No DVT/VTE Risk/Contraindication: Risk Factor Score Per Nursin RFS Level Per Nursing on Admit: 3=High TEJA ADAMS DO Mar 21, 2017 07:19
[2017-03-21 08:04] VITALS: BP 110/58
[2017-03-21] MEDS: ALPRAZolam 0.5 MG (XANAX) TAB PO PRN (08:59)
[2017-03-21] MEDS: guaiFENesin (MUCINEX) 600 MG TAB PO SCH (08:59)
[2017-03-21] MEDS: risperiDONE 0.25 MG (RisperDAL) TAB PO SCH (08:59)
--- NOTE | 2017-03-21 11:08 | Discharge Summary-Hospitalist ---
Diagnosis/Chief Complaint Date of Admission Mar 20, 2017 at 01:10 Date of Discharge Admission Diagnosis Assessment: Residual MRSA pneumonia placed on Zyvox Severe COPD requiring IV steroids Anxiety and panic attacks Leukocytosis Previous smoker quit 2 weeks ago when admitted for VDRF Discharge Diagnosis Assessment: Severe COPD requiring IV steroids due to exacerbation Anxiety and panic attacks Leukocytosis Previous smoker quit 2 weeks ago when admitted for VDRF Plan: Maintain Zyvox Transfer to floor Anxiolytics Biofeedback and meditation therapy for panic attacks Monitor closely Discharge Summary Discharge Physical Examination Allergies: Coded Allergies: piperacillin (Verified Allergy, Intermediate, RASH, 03/21/17) RASH AND SKIN PEELING tazobactam (Verified Allergy, Intermediate, RASH, 03/21/17) RASH AND SKIN PEELING ciprofloxacin (Unverified Allergy, Mild, 08/05/08) levofloxacin (Unverified Allergy, Mild, 08/05/08) Uncoded Allergies: penicillin (Allergy, Unknown, 03/21/17) Vitals & I&Os Vital Signs Date Time Temp Pulse Resp B/P (MAP) Pulse Ox O2 Delivery O2 Flow Rate FiO2 03/21/17 11:07 93 Room Air 03/21/17 08:04 98.0 85 20 110/58 (75) 1.50 Hospital Course Hospital course: Patient had an uneventful hospital course he was placed in stepdown due to the recent respiratory failure that required ventilation for 3 days prior to weaning. He was noted to have MRSA pneumonia at that point responded to IV antibiotics but took 2 weeks to ultimately discharged back home and severe anxiety and panic attacks lead to the delay of recovery due to lack of deep breathing from anxiety problems. CT angiogram obtained in the ER showed residual pneumonia but on further assessment from pulmonary consultation expertise that was residual from the previous pneumonia and no evidence of is an acute pneumonia. He was willing to manage his anxiety and panic attacks had a couple of doses of alprazolam which helped a great deal and he will have a follow-up appointment with Cee Kraft with Dr. Cramer's office in one week to explore other treatments further. He will be placed on prednisone for acute exacerbation of COPD and maintain smoking cessation and overall he agreed with the plan and felt much better and was ready for discharge. Labs (last 24 hrs) Microbiology 03/20/17 Blood Culture - Preliminary, Resulted No growth 03/19/17 Influenza Types A,B Antigen (SOLO) - Final, Complete Discharge Home Medications: Active Scripts Active Prednisone 10 Mg Tab.ds.pk 10 Mg PO DAILY Take 6 tabs(60mg)daily,decrease by 1 tab(10MG)daily. Mucinex (Guaifenesin) 600 Mg Tab.er.12h 600 Mg PO BID Promethazine-Codeine Syrup (Promethazine HCl/Codeine) 118 Ml Syrup 5-10 Ml PO Q4H PRN Benzonatate 100 Mg Capsule 200 Mg PO Q8H Alprazolam 0.5 Mg Tablet 0.5 Mg PO Q8H PRN Iprat-Albut 0.5-3(2.5) mg/3 ml (Ipratropium/Albuterol Sulfate) 3 Ml Ampul.neb 3 Ml INH RTQ4HR Reported Pepcid (Famotidine) 20 Mg Tablet 20 Mg PO BID Tylenol Extra Strength (Acetaminophen) 500 Mg Tablet 1,000 Mg PO Q6H PRN Proair Hfa (Albuterol Sulfate) 8.5 Gm Hfa.aer.ad 2 Puff IH Q4H PRN Cold & Cough Elixir (Brompheniram/Phenylephrine/Dm) 118 Ml Solution 45 Ml PO HS PRN Benadryl (Diphenhydramine HCl) 25 Mg Capsule 50 Mg PO HS PRN TAKES 2 (25 MG) CAPS Acetaminophen Extra Strength (Acetaminophen) 500 Mg Tablet 1,000 Mg PO DAILY One Daily For Men Tablet (Multivits-Minerals/FA/Lycopene) 1 Each Tablet 1 Tab PO DAILY Instructions to patient/family Please see electronic discharge instructions given to patient. Clinical Quality Measures AMI/AHF: ASA po Prior to arrival: No DVT/VTE Risk/Contraindication: Risk Factor Score Per Nursin RFS Level Per Nursing on Admit: 3=High YANG HERNANDEZ DO Mar 21, 2017 11:08
[2017-03-21] MEDS ORDERED: ALPR0.5T7 PO (11:10)
[2017-03-21] MEDS ORDERED: CODE118S2 PO (11:10)
[2017-03-21] MEDS ORDERED: PRED10TA22 PO (11:10)
[2017-03-21] MEDS ORDERED: GUAI600T43 PO (11:10)
[2017-03-21] MEDS ORDERED: BENZ-36 PO (11:10)
[2017-03-21 12:00] VITALS: BP 132/62
--- NOTE | 2017-03-24 07:47 | Physician Query Clarification ---
PQ-Conflicting Diagnosis Admission/Discharge Admission Date: Mar 20, 2017 at 01:10 Discharge Date: Mar 21, 2017 at 14:55 The medical record reflects the following clinical scenario: History/Risk Factors: recent history pneumonia Clinical Findings: cough, shortness of breath, panic attacks Treatment: IV steroids, empiric antibiotic Question: Do you agree with the impression of acute on chronic respiratory failure per Dr. Blackwell. If disagree, Please document if chronic respiratory failure is appropriate to report. Please document a response below. PHYSICIAN RESPONSE Do you agree w/Consulting Dx?: Yes In responding to this query, please exercise your independent professional judgment. The purpose of this communication is to more accurately reflect the complexity of your patients condition. The fact that a question is asked does not imply that any particular answer is desired or expected. Thank you for your timely response to this clarification. Requestors name: Dejuan THIS PHYSICIAN QUERY FORM IS A PERMANENT PART OF THE MEDICAL RECORD DEJUAN JAMES Mar 24, 2017 07:47 YANG HERNANDEZ DO Mar 24, 2017 09:43
== END 2017-03-21 14:55 | disposition home or self-care (01) | DRG 189 ==
LOC: EDUNIT# 23:32 → ER 23:34 → ICU 03-20 01:10 → 4TH 03-20 11:29
PROVIDERS: ADMIT Internal Medicine; ATTEND Internal Medicine
DX: J96.20 Acute and chronic respiratory failure, unspecified whether with hypoxia or hypercapnia (principal); J44.1 Chronic obstructive pulmonary disease with (acute) exacerbation; F41.0 Panic disorder [episodic paroxysmal anxiety]; F17.210 Nicotine dependence, cigarettes, uncomplicated; K21.9 Gastro-esophageal reflux disease without esophagitis; Z87.01 Personal history of pneumonia (recurrent)
CPT/HCPCS: 36415; 71045; 71275; 80053; 82550; 82553; 82805; 83605; 83735; 83880; 84145; 84484; 85025; 85610; 85730; 87040; 87804; 93005; 93041; 94640; 94760; 96365; 96375

== ENCOUNTER → 2017-04-04 | Emergency (ER) | payer OTHER ==
[~2017-04-04] VITALS: Ht 172.7 cm; Wt 89.8 kg
[~2017-04-04] MED LIST changes: +ALPR0.5T7 PO; +ANTACID SUSP 30 ML UDC (MYLANTA) PO ONE; +BENZ-36 PO; +CODE118S2 PO; +FAMOTIDINE 20MG/2ML IV (PEPCID) IV STA; +FLUC200T PO; +GUAI600T43 PO; +IPRA3AMP IH; +LIDOCAINE 2% VISCOUS 15 ML UDC PO ONE; +LORA-405 PO; +LORazepam INJ 2 MG/ML (ATIVAN) VIAL IVP ONE; +NS IV 1000 ML 1,000 ML IV ONE; +PANT40TA2 PO; +PRED10TA22 PO; +SUCR1ORA5 PO
--- NOTE | 2017-04-04 18:02 | ED General ---
General Chief Complaint: General Problems/Pain Stated Complaint: SOB Source of Information: Patient Exam Limitations: No Limitations (KIN MEDINA MD) History of Present Illness Date Seen by Provider: Apr 04, 2017 Time Seen by Provider: 17:42 Initial Comments Here with report of shortness of breath and difficulty with swallowing due to pain in his throat. She had a protracted course of illness over the last month and a half with pneumonia that required intubation and MRSA pneumonia. And subsequent hospitalization for possible residual pneumonia that appeared to be more related to anxiety. Had quit smoking last month but does admit to smoking occasionally now. Does admit that he has fairly significant anxiety. Complains of sore throat and coughing. Does report that his hands occasionally go numb with his breathing problems. Family member reports it is not eating well and they both report that he has increased heartburn and burping. Timing/Duration: 1 Week, Changing Over Time, Getting Worse Severity: Moderate Associated Systoms: No Fever/Chills, No Nausea/Vomiting, Shortness of Air, No Weakness (KIN MEDINA MD) Allergies and Home Medications Allergies Coded Allergies: piperacillin (Verified Allergy, Intermediate, RASH, 03/21/17) RASH AND SKIN PEELING tazobactam (Verified Allergy, Intermediate, RASH, 03/21/17) RASH AND SKIN PEELING ciprofloxacin (Unverified Allergy, Mild, 08/05/08) levofloxacin (Unverified Allergy, Mild, 08/05/08) Uncoded Allergies: penicillin (Allergy, Unknown, 03/21/17) Home Medications Acetaminophen 500 Mg Tablet, 1,000 MG PO DAILY, (Reported) Acetaminophen 500 Mg Tablet, 1,000 MG PO Q6H PRN for PAIN-MILD, (Reported) Albuterol Sulfate 8.5 Gm Hfa.aer.ad, 2 PUFF IH Q4H PRN for SHORTNESS OF BREATH, (Reported) Brompheniram/Phenylephrine/Dm 118 Ml Solution, 45 ML PO HS PRN for COUGH OR CONGESTION, (Reported) Diphenhydramine HCl 25 Mg Capsule, 50 MG PO HS PRN for ALLERGIES, (Reported) TAKES 2 (25 MG) CAPS Famotidine 20 Mg Tablet, 20 MG PO BID, (Reported) Fluconazole 200 Mg Tablet, 200 MG PO DAILY, #10 Prescribed by: KRYSTEN LEAL on 2/16/18 1907 Guaifenesin 600 Mg Tab.er.12h, 600 MG PO BID, #60 Prescribed by: YANG HERNANDEZ on 03/21/17 1110 Ipratropium/Albuterol Sulfate 3 Ml Ampul.neb, 3 ML INH RTQ4HR, #100 Prescribed by: LUDY OLIVA on 03/18/17 1353 Ipratropium/Albuterol Sulfate 3 Ml Ampul.neb, 3 ML IH Q4H PRN for SHORTNESS OF BREATH, #1 Prescribed by: KRYSTEN LEAL on 04/04/17 190 Lorazepam 1 Mg Tablet, 1 MG PO Q6H, #20 Prescribed by: KRYSTEN LEAL on 04/04/17 190 Multivits-Minerals/FA/Lycopene 1 Each Tablet, 1 TAB PO DAILY, (Reported) Pantoprazole Sodium 40 Mg Tablet.dr, 40 MG PO DAILY, #15 Prescribed by: KRYSTEN LEAL on 04/04/171906 Promethazine HCl/Codeine 118 Ml Syrup, 5-10 ML PO Q4H PRN for COUGH, #6 Prescribed by: YANG HERNANDEZ on 03/21/17 1110 Sucralfate 1 Gm/10 Ml Oral.susp, 1 GM PO QID AC AND HS, #400 Prescribed by: KRYSTEN LEAL on 04/04/171906 Constitutional: see HPI, No chills, No fever EENTM: throat pain, throat swelling, No nose congestion Respiratory: see HPI, cough, short of breath, No wheezing Cardiovascular: no symptoms reported Gastrointestinal: see HPI, heartburn, loss of appetite, No vomiting Genitourinary: no symptoms reported Musculoskeletal: no symptoms reported Skin: no symptoms reported Psychiatric/Neurological: Anxiety, Emotional Problems (KIN MEDINA MD) All Other Systems Reviewed Negative Unless Noted: Yes (KIN MEDINA MD) Past Yjmqfde-Njaqic-Opwmtm Hx Patient Social History Alcohol Use: Denies Use Recreational Drug Use: No Type Used: Cigarettes 2nd Hand Smoke Exposure: Yes Recent Foreign Travel: No Contact w/Someone Who Travel: No Recent Hopitalizations: Yes (SEPSIS PNEUMONIA) Physical Abuse: No Sexual Abuse: No (KIN MEDINA MD) Immunizations Up To Date Tetanus Booster (TDap): Unknown PED Vaccines UTD: No Date of Pneumonia Vaccine: Mar 04, 2015 Date of Influenza Vaccine: Mar 05, 2017 (KIN MEDINA MD) Seasonal Allergies Seasonal Allergies: Yes (KIN MEDINA MD) Surgeries History of Surgeries: Yes (LITHOTRIPSY) Surgeries: Appendectomy (KIN MEDINA MD) Respiratory History of Respiratory Disorde: Yes (Resp infection twice yearly, tobaccoism) Respiratory Disorders: Chronic Bronchitis (KIN MEDINA MD) Cardiovascular History of Cardiac Disorders: No (KIN MEDINA MD) Neurological History of Neurological Disord: No (KIN MEDINA MD) Reproductive System Hx Reproductive Disorders: No (KIN MEDINA MD) Genitourinary History of Genitourinary Disor: Yes Genitourinary Disorders: Kidney Stones (KIN MEDINA MD) Gastrointestinal History of Gastrointestinal Di: Yes Gastrointestinal Disorders: Gastroesophageal Reflux (KIN MEDINA MD) Musculoskeletal History of Musculoskeletal Dis: Yes (HERNIATED DISK) Musculoskeletal Disorders: Chronic Back Pain (KIN MEDINA MD) Endocrine History of Endocrine Disorders: No (KIN MEDINA MD) HEENT History of HEENT Disorders: No (KIN MEDINA MD) Cancer History of Cancer: No (KIN MEDINA MD) Psychosocial History of Psychiatric Problem: Yes Behavioral Health Disorders: Sleep Difficulties, Anxiety Suicide Risk Score: 0 (KIN MEDINA MD) Integumentary History of Skin or Integumenta: Yes (INTERMITTENT RASH (POST CIPRO REACTION)) (KIN MEDINA MD) Blood Transfusions History of Blood Disorders: No (KIN MEDINA MD) Reviewed Nursing Assessment Reviewed/Agree w Nursing PMH: Yes (KIN MEDINA MD) Family Medical History Significant Family History: No Pertinent Family Hx Family Medial History: Dementia 19 MOTHER, Onset:60 years & older FH: depression 19 MOTHER, Onset:Unknown Thyroid disease 19 MOTHER (HYPOTHYROID) (KIN MEDINA MD) Family Medial History: Dementia 19 MOTHER, Onset:60 years & older FH: depression 19 MOTHER, Onset:Unknown Thyroid disease 19 MOTHER (HYPOTHYROID) (KRYSTEN LEAL DO) Physical Exam Vital Signs Vital Signs - First Documented 04/04/17 17:54 Temp 96.8 Pulse 86 Resp 32 B/P (MAP) 131/86 (101) Pulse Ox 98 (KRYSTEN LEAL DO) Vital Signs Capillary Refill : (KIN MEDINA MD) General Appearance: No Apparent Distress, WD/WN HEENT: PERRL/EOMI, Pharyngeal Erythema Neck: Full Range of Motion, Normal Inspection, Non Tender, Supple Respiratory: Lungs Clear, Normal Breath Sounds, Other (rapid breathing noted) Cardiovascular: Regular Rate, Rhythm, No Murmur Gastrointestinal: Non Tender, Soft Back: Normal Inspection, No CVA Tenderness, No Vertebral Tenderness Extremity: Normal Range of Motion, Non Tender Neurologic/Psychiatric: Alert, Oriented x3 Skin: Normal Color, Warm/Dry (KIN MEDINA MD) General Appearance: Anxious (HYPERVENTILATING. ) (KRYSTEN LEAL DO) Date of ETT Placement: Mar 04, 2017 Time of ETT Placement: 0705 (KIN MEDINA MD) Progress/Results/Core Measures Suspected Sepsis SIRS Temperature: Pulse: Respiratory Rate: Blood Pressure / Mean: (KIN MEDINA MD) Results/Orders Lab Results Laboratory Tests Test 04/04/17 18:04 Range/Units White Blood Count 10.0 4.3-11.0 10^3/uL Red Blood Count 4.20 L 4.35-5.85 10^6/uL Hemoglobin 13.7 13.3-17.7 G/DL Hematocrit 40 40-54 % Mean Corpuscular Volume 94 80-99 FL Mean Corpuscular Hemoglobin 33 25-34 PG Mean Corpuscular Hemoglobin Concent 35 32-36 G/DL Red Cell Distribution Width 13.3 10.0-14.5 % Platelet Count 348 130-400 10^3/uL Mean Platelet Volume 9.0 7.4-10.4 FL Neutrophils (%) (Auto) 58 42-75 % Lymphocytes (%) (Auto) 31 12-44 % Monocytes (%) (Auto) 10 0-12 % Eosinophils (%) (Auto) 1 0-10 % Basophils (%) (Auto) 0 0-10 % Neutrophils # (Auto) 5.9 1.8-7.8 X 10^3 Lymphocytes # (Auto) 3.1 1.0-4.0 X 10^3 Monocytes # (Auto) 1.0 0.0-1.0 X 10^3 Eosinophils # (Auto) 0.1 0.0-0.3 10^3/uL Basophils # (Auto) 0.0 0.0-0.1 10^3/uL Sodium Level 132 L 135-145 MMOL/L Potassium Level 3.5 L 3.6-5.0 MMOL/L Chloride Level 98 98-107 MMOL/L Carbon Dioxide Level 20 L 21-32 MMOL/L Anion Gap 14 5-14 MMOL/L Blood Urea Nitrogen 5 L 7-18 MG/DL Creatinine 0.95 0.60-1.30 MG/DL Estimat Glomerular Filtration Rate > 60 BUN/Creatinine Ratio 5 Glucose Level 115 H 70-105 MG/DL Calcium Level 9.7 8.5-10.1 MG/DL Magnesium Level 2.0 1.8-2.4 MG/DL Total Bilirubin 0.4 0.1-1.0 MG/DL Aspartate Amino Transf (AST/SGOT) 30 5-34 U/L Alanine Aminotransferase (ALT/SGPT) 36 0-55 U/L Alkaline Phosphatase 87 40-136 U/L C-Reactive Protein High Sensitivity 2.31 H 0.00-0.50 MG/DL Total Protein 7.4 6.4-8.2 GM/DL Albumin 3.9 3.2-4.5 GM/DL (KRYSTEN LEAL DO) My Orders Orders - KRYSTEN LEAL DO Saline Lock/Iv-Start (04/04/17 18:23) Ns Iv 1000 Ml (Sodium Chloride 0.9%) (04/04/17 18:23) (KRYSTEN LEAL DO) Medications Given in ED Current Medications Medications Dose Ordered Sig/Myke Route Start Time Stop Time Status Last Admin Dose Admin Al Hydrox/Mg Hydrox/Simethicone 30 ml ONCE ONCE PO 18 18:00 04/04/17 18:01 DC 04/04/17 18:18 30 ML Lidocaine HCl 15 ml ONCE ONCE PO 04/04/17 18:00 04/04/17 18:01 DC 04/04/17 18:18 15 ML Lorazepam 1 mg ONCE ONCE IVP 04/04/17 18:00 04/04/17 18:01 DC 04/04/17 18:18 1 MG Sodium Chloride 1,000 ml @ 0 mls/hr Q0M ONCE IV 2/16/18 18:23 04/04/17 18:28 DC 04/04/17 18:39 1,000 MLS/HR (KRYSTEN LEAL DO) Vital Signs/I&O Vital Sign - Last 12Hours 04/04/17 04/04/17 17:54 19:29 Temp 96.8 Pulse 86 87 Resp 32 13 B/P (MAP) 131/86 (101) 123/83 Pulse Ox 98 97 (KRYSTEN LEAL DO) Vital Signs/I&O Capillary Refill : (KIN MEDINA MD) Progress Note : Progress Note Seen and evaluated. IV, labs and chest x-ray ordered. Ativan 1 mg IV, Pepcid 20 mg IV and GI cocktail ordered. Case discussed and checked out to Dr. Leal pending all labs and x-ray at 1800. (KIN MEDINA MD) Progress Note : Progress Note 1800--ASSUMED CARE FROM DR. MEDINA, ALL STUDIES PENDING. PT IS VERY ANXIOUS. PT AND STATE THAT PT HAS BEEN HAVING PROBLEMS SWALLOWING--FEELS LIKE THINGS ARE GETTING STUCK IN HIS THROAT AND IS VERY PAINFUL TO SWALLOW. PT WAS INTUBATED RECENTLY AND ON EXTUBATION, PT WAS THRASHING AROUND SIGNIFICANTLY AND POSSIBLY HAD A TRAUMATIC EXTUBATION ?? PT ABLE TO DRINK, BUT HAS NOT EATEN TODAY DUE TO THROAT PAIN AND FEAR OF SOMETHING GETTING STUCK STATES WHEN SOMETHING GETS STUCK IN HIS THROAT, HIS ANXIETY ESCALATES SIGNIFICANTLY STATES HE "FEELS DRY" BUT HAS BEEN DRINKING LARGE QUANTITIES OF FLUIDS ALL SYMPTOMS COMPLETELY RESOLVED WITH ATIVAN AND GI COCKTAIL PT HAS BEEN ON MULTIPLE ANTIBIOTICS WELL PREDNISONE OVER THE LAST FEW WEEKS WILL EMPIRICALLY TREAT FOR CANDIDIASIS POTENTIAL CONTRIBUTOR TO DYSPHAGIA PT HAS APPOINTMENT WITH DR. ADAMS ON FRIDAY AND DR. WHITE 04/14/17 (KRYSTEN LEAL DO) Diagnostic Imaging Comments CXR--NO ACUTE PROCESS, PER RADIOLOGIST REPORT @ 1843 Reviewed: Reviewed by Me (KRYSTEN LEAL DO) Departure Impression Impression: Primary Impression: Anxiety Additional Impressions: Dysphagia RECENT PNEUMONIA Disposition: HOME, SELF-CARE Condition: Improved Departure-Patient Inst. Referrals: TEJA ADAMS,LOCAL PHYSICIAN (PCP) Primary Care Physician JUANJOSE WHITE MD Patient Instructions: Dysphagia (DC), Generalized Anxiety Disorder (DC), Hyperventilation, Pureed Diet Add. Discharge Instructions: KEEP YOUR APPOINTMENT WITH DR. ADAMS ON FRIDAY AND DR. WHITE ON 04/14/17 CONTINUE ALL CURRENT MEDICATIONS RETURN TO ER IF SYMPTOMS WORSEN All discharge instructions reviewed with patient and/or family. Voiced understanding. Scripts Ipratropium/Albuterol Sulfate (Iprat-Albut 0.5-3(2.5) mg/3 ml) 3 Ml Ampul.neb 3 ML IH Q4H Y for SHORTNESS OF BREATH, #1 EACH Prov: KRYSTEN LEAL DO 04/04/17 Lorazepam (Ativan) 1 Mg Tablet 1 MG PO Q6H for Anxiety, #20 TAB Prov: KRYSTEN LEAL DO 04/04/17 Sucralfate (Carafate) 1 Gm/10 Ml Oral.susp 1 GM PO QID AC AND HS, #400 ML Prov: KRYSTEN LEAL DO 04/04/17 Pantoprazole Sodium (Protonix) 40 Mg Tablet.dr 40 MG PO DAILY, #15 TAB Prov: KRYSTEN LEAL DO 04/04/17 Fluconazole (Diflucan) 200 Mg Tablet 200 MG PO DAILY for FOR YEAST INFECTION, #10 TAB Prov: KRYSTEN LEAL DO 04/04/17 KIN MEDINA MD Apr 04, 2017 18:02 KRYSTEN LEAL DO Apr 04, 2017 18:25
[2017-04-04 18:11] LABS: BASOPHILS % (AUTO) 0 % (0-10); EOSINOPHILS # (AUTO) 0.1 10^3/uL (0.0-0.3); EOSINOPHILS % (AUTO) 1 % (0-10); HEMATOCRIT 40 % (40-54); HEMOGLOBIN 13.7 G/DL (13.3-17.7); LYMPHOCYTES # (AUTO) 3.1 X 10^3 (1.0-4.0); LYMPHOCYTES % (AUTO) 31 % (12-44); MEAN CORPUSCULAR HEMOGLOBIN 33 PG (25-34); MEAN CORPUSCULAR HGB CONC 35 G/DL (32-36); MEAN CORPUSCULAR VOLUME 94 FL (80-99); MONOCYTES % (AUTO) 10 % (0-12); NEUTROPHILS # (AUTO) 5.9 X 10^3 (1.8-7.8); NEUTROPHILS % (AUTO) 58 % (42-75); PLATELET COUNT 348 10^3/uL (130-400); RED CELL DISTRIBUTION WIDTH 13.3 % (10.0-14.5)
[2017-04-04 18:30] LABS: ALANINE AMINOTRANSFERASE 36 U/L (0-55); ALBUMIN 3.9 GM/DL (3.2-4.5); ALKALINE PHOSPHATASE 87 U/L (40-136); BILIRUBIN,TOTAL 0.4 MG/DL (0.1-1.0); BUN/CREATININE RATIO 5; CALCIUM 9.7 MG/DL (8.5-10.1); CARBON DIOXIDE 20 MMOL/L (21-32); CHLORIDE 98 MMOL/L (98-107); CREATININE SERUM 0.95 MG/DL (0.60-1.30); GFR ESTIMATED > 60; GLUCOSE 115 MG/DL (70-105); POTASSIUM 3.5 MMOL/L (3.6-5.0); SODIUM 132 MMOL/L (135-145); TOTAL PROTEIN 7.4 GM/DL (6.4-8.2)
--- NOTE | 2017-04-04 18:41 | Diagnostic Imaging Report ---
EXAMINATION: PA and lateral chest at 0642 PM INDICATION: Shortness of breath The heart size is within normal limits and stable when compared to 03/20/17. The lungs are clear. There is no sign of failure, pneumonia or a pleural effusion to suggest an acute abnormality. The lungs do seem slightly hyperexpanded. The mediastinum is not widened. The osseous structures are intact. IMPRESSION: There is no evidence for an acute cardiopulmonary abnormality. Dictated by: Dictated on workstation # [id number]
[2017-04-04 19:29] VITALS: BP 123/83
== END ==
LOC: EDUNIT# 17:34 → ER 17:35
DX: F41.9 Anxiety disorder, unspecified (principal); R13.10 Dysphagia, unspecified; K21.9 Gastro-esophageal reflux disease without esophagitis; G47.9 Sleep disorder, unspecified; Z87.442 Personal history of urinary calculi; Z87.01 Personal history of pneumonia (recurrent); Z90.49 Acquired absence of other specified parts of digestive tract; Z87.891 Personal history of nicotine dependence; Z88.0 Allergy status to penicillin; Z88.1 Allergy status to other antibiotic agents; Z88.8 Allergy status to other drugs, medicaments and biological substances; Z86.14 Personal history of Methicillin resistant Staphylococcus aureus infection
CPT/HCPCS: 36415; 71046; 80053; 83735; 85025; 86141; 99281

== ENCOUNTER → 2017-04-16 | Outpatient (CLI) | payer OTHER ==
[~2017-04-16] MED LIST changes: -ANTACID SUSP 30 ML UDC (MYLANTA) PO ONE; -FAMOTIDINE 20MG/2ML IV (PEPCID) IV STA; -LIDOCAINE 2% VISCOUS 15 ML UDC PO ONE; -LORazepam INJ 2 MG/ML (ATIVAN) VIAL IVP ONE; -NS IV 1000 ML 1,000 ML IV ONE; +RT-ALBUTEROL SULF 2.5 MG/3 ML PRE-MIX VIAL INH ONE
== END ==
LOC: RT 16:30
PROVIDERS: ATTEND Nurse Practitioner Family
DX: J18.9 Pneumonia, unspecified organism (principal); J42 Unspecified chronic bronchitis; R06.00 Dyspnea, unspecified; Z72.0 Tobacco use
CPT/HCPCS: 36415; 94060; 94726; 94729

== ENCOUNTER → 2017-04-21 | Outpatient (CLI) | payer OTHER ==
[~2017-04-21] MED LIST changes: -RT-ALBUTEROL SULF 2.5 MG/3 ML PRE-MIX VIAL INH ONE
--- NOTE | 2017-04-21 10:47 | Diagnostic Imaging Report ---
INDICATION: Globus sensation. TECHNIQUE: The procedure was performed in conjunction with Speech Pathology. Videofluoroscopy was performed during the swallowing of barium in multiple consistencies. FINDINGS: The patient ingested thin and applesauce consistency as well as barium paste on a cracker. The oral phase was unremarkable. No early spillover was identified. There was normal epiglottic tilt and laryngeal elevation. No laryngeal penetration or aspiration was observed. No vallecular or pyriform sinus residue is demonstrated. IMPRESSION: Normal modified barium swallow. Dictated by: Dictated on workstation # [id number]
== END ==
LOC: RAD 09:58
PROVIDERS: ATTEND Nurse Practitioner Family
DX: J02.9 Acute pharyngitis, unspecified (principal); Z87.01 Personal history of pneumonia (recurrent)
CPT/HCPCS: 74230

== ENCOUNTER → 2017-12-22 | Outpatient (CLI) | payer OTHER ==
[~2017-12-22] MED LIST changes: -CODE118S2 PO; +CODE118S4 PO; -IPRA3AMP IH; -IPRA3AMP INH; +IPRA3AMP31 IH; +IPRA3AMP31 INH
[2017-12-22 15:47] LABS: BASOPHILS % (AUTO) 0 % (0-10); EOSINOPHILS # (AUTO) 0.4 10^3/uL (0.0-0.3); EOSINOPHILS % (AUTO) 4 % (0-10); HEMATOCRIT 43 % (40-54); HEMOGLOBIN 14.4 G/DL (13.3-17.7); LYMPHOCYTES # (AUTO) 3.2 X 10^3 (1.0-4.0); LYMPHOCYTES % (AUTO) 34 % (12-44); MEAN CORPUSCULAR HEMOGLOBIN 31 PG (25-34); MEAN CORPUSCULAR HGB CONC 33 G/DL (32-36); MEAN CORPUSCULAR VOLUME 93 FL (80-99); MEAN PLATELET VOLUME 9.3 FL (7.4-10.4); MONOCYTES # (AUTO) 0.6 X 10^3 (0.0-1.0); MONOCYTES % (AUTO) 7 % (0-12); NEUTROPHILS # (AUTO) 5.2 X 10^3 (1.8-7.8); NEUTROPHILS % (AUTO) 55 % (42-75); PLATELET COUNT 365 10^3/uL (130-400); RED BLOOD COUNT 4.65 10^6/uL (4.35-5.85); RED CELL DISTRIBUTION WIDTH 12.8 % (10.0-14.5); WHITE BLOOD COUNT 9.3 10^3/uL (4.3-11.0)
[2017-12-22 16:05] LABS: ABG BASE EXCESS 1.6 MMOL/L (-2.5-2.5); ABG OXYGEN SATURATION 96 % (94-100); ABG PCO2 40 MMHG (35-45); ABG PH 7.42 (7.37-7.43); ABG PO2 78 MMHG (79-93); ABG TCO2 26.8 MMOL/L (21.0-31.0)
[2017-12-22 16:07] LABS: ALLENS TEST POSITIVE; INSPIRED O2 ROOM AIR; PATIENT TEMP 98.8; VENTILATOR NO
[2017-12-24 05:24] LABS: ALTERNARIA MOLD RAST 0.82 kU/L (0.00-0.34); RAGWEED RAST 0.97 kU/L (0.00-0.34)
== END ==
LOC: LAB 15:24
PROVIDERS: ATTEND Nurse Practitioner Family
DX: J30.2 Other seasonal allergic rhinitis (principal); J18.9 Pneumonia, unspecified organism; J42 Unspecified chronic bronchitis; R06.00 Dyspnea, unspecified; R06.83 Snoring; G47.9 Sleep disorder, unspecified; K21.9 Gastro-esophageal reflux disease without esophagitis; Z72.0 Tobacco use
CPT/HCPCS: 36415; 36600; 82784; 82805; 85025; 86003

== ENCOUNTER → 2018-01-02 | Outpatient (CLI) | payer OTHER ==
[~2018-01-02] MED LIST changes: +RT-ALBUTEROL SULF 2.5 MG/3 ML PRE-MIX VIAL INH ONE; +RT-ALBUTEROL SULF 2.5 MG/3 ML PRE-MIX VIAL ONE
--- NOTE | 2018-01-02 15:03 | Diagnostic Imaging Report ---
PROCEDURE: CT chest without contrast. TECHNIQUE: Multiple contiguous axial images were obtained through the chest without the use of intravenous contrast. INDICATION: Pneumonia and chronic bronchitis. The study is performed for followup. COMPARISON: Correlation is made with prior CT from 03/20/2017. FINDINGS: No axillary lymphadenopathy is seen. Mediastinal and hilar evaluation is limited without intravenous contrast but no significant abnormality is seen. No pericardial or pleural fluid is detected. Central airways are unremarkable. Previously noted groundglass opacities in the upper lobes have resolved. In addition, previously noted reticular nodular infiltrates at bilateral lower lobes have resolved. No new parenchymal abnormality is seen. Upper abdomen is unremarkable. IMPRESSION: Resolution of bilateral pulmonary infiltrates when compared with prior examination from 03/20/2017. No new abnormality is detected. Dictated by: Dictated on workstation # [id number]
== END ==
LOC: RT 12:49
PROVIDERS: ATTEND Nurse Practitioner Family
DX: J30.2 Other seasonal allergic rhinitis (principal); K21.9 Gastro-esophageal reflux disease without esophagitis; J18.9 Pneumonia, unspecified organism; R06.00 Dyspnea, unspecified; R06.83 Snoring; G47.9 Sleep disorder, unspecified; J42 Unspecified chronic bronchitis; Z72.0 Tobacco use
CPT/HCPCS: 71250; 94060; 94726; 94729